=== PATIENT | male | born 1940 | race Caucasian/White ===

== ENCOUNTER 2020-05-15 05:51 | Emergency (ER) | payer OTHER, SELFPAY ==
[2020-05-15] VITALS (11 sets, daily range): BP systolic 146–153; BP diastolic 60–86; PULSE 59–71; RESP 16; TEMP 36.7; O2SAT 95–98
--- NOTE | 2020-05-15 06:00 | RT.EKG_ITS ---
APPROVED REPORT Exam: Resting ECG Patient Location: E HR:63 bpm ECG Measurements Heart Rate 63 AXIS NC 162 P 21 QRSd 86 QRS -11 QT 394 T 20 QTc 402 <Conclusion> Sinus rhythm...normal P axis, V-rate 60- 99 no acute ischemic findings Normal Electrocardiogram I have reviewed and I agree with the emergency room physician???s ECG interpretation.
--- NOTE | 2020-05-15 06:02 | W.ED.GENAD ---
Discharge Plan Disposition Patient Disposition: HOME Condition: Stable Discharge Details Chief Complaint: GenMedical Clinical Impression: Hypertension Primary Care Provider: Calixto Canales ED Provider: Terry Manzo Home Meds and New Rx's Prescriptions: Continued lisinopril 20 MG tablet 10 mg PO DAILY RF: 0 diltiazem HCl [Taztia XT] 360 MG capsule,extended release 24 hr 240 mg PO DAILY RF: 0 Eliquis 2.5 mg Tablet 2.5 mg PO DAILY RF: 0 No Action tamsulosin [Flomax] 0.4 mg Capsule 0.4 mg PO DAILY RF: 0 Discharge Instructions Additional Instructions: I suspect some of your symptoms could be from anxiety/stress. You do not need to check your blood pressure multiple times a day follow up with your primary care provider within 1-2 weeks if you develop fevers, feel more ill, have difficulty breathing or chest pain/pressure return to the emergency department Medical Decision Making 79 yo male with hx of afib, htn, who comes in with cc of feeling uneasy. He states throughout the night he was checking his BP as he is worried about having a stroke and one BP reading was 190 which made him very worried and felt flushed in the face so called ems. On arrival hd stable, denies any chest pain, pressure, dyspnea, fevers, vomit, weakness, numbness, vision changes. Arrives with NIH of 0, CN II-XII intact, 5/5 strength, speaking in full sentences and still feels uneasy as he is worried about his BP and having to care for his . He has clear lungs no leg swelling soft nontender abdomen. I suspect his symptoms were likely from anxiety related to his BP but will evaluate for possible cardiac ischema and monitor. HE has no findings on exam or history to suggest cva/tia and do not feel head imaging indicated pt remains Hd stable with stable exam, labs show mild elevation in creatinine which he states is chronic for him. Suspect his symptoms likely stress/anxiety induced. He is comfortable with d/c and will f/u with pcp and return precautions given Differential Diagnosis Differential Diagnosis: anxiety, electrolyte abnormality, htn, anemia Lab Data Lab results reviewed: Yes I reviewed the patient's lab results. ECG Data Attestation: I personally reviewed and interpreted this ECG (s) as follows: Prior ECG tracings: not available for review Interpretation: sinus rhythm, rate of 63, pr 162, no acute st t wave ischemic findings HPI General Mode of arrival: EMS. Date/Time Provider Initiated Documentation: 05/15/20 06:01. Limitations to Documentation: no limitations. Information obtained by: patient. History of Present Illness 79 year old M presents to the emergency department with the chief complaint of uneasy, Patient started experiencing this hour(s) (5) and it has been constant. No relieving factors improve symptom(s), No exacerbating factors reported . Patient did receive the following treatments prior to arrival, none Related Data Home Medications Medication Instructions Recorded Confirmed diltiazem HCl [Taztia XT] 240 mg PO DAILY 10/16/13 05/15/20 lisinopril 10 mg PO DAILY 10/16/13 05/15/20 Eliquis 2.5 mg PO DAILY 05/15/20 05/15/20 tamsulosin [Flomax] 0.4 mg PO DAILY 05/15/20 05/15/20 Allergies Allergy/AdvReac Type Severity Reaction Status Date / Time No Known Allergies Allergy Unverified 05/15/20 05:56 General Stated Complaint: GenMedical ROSINA: 3 Review of Systems All systems reviewed & are unremarkable except as noted in HPI and below Constitutional Constitutional: Denies chills and Denies fever(s) Cardiovascular Cardiovascular: Denies chest pain and Denies dyspnea Respiratory Respiratory: Denies cough and Denies dyspnea Gastrointestinal Gastrointestinal: Denies abdominal pain, Denies nausea and Denies vomiting Musculoskeletal Musculoskeletal: Denies joint swelling Psychiatric Psychiatric: Denies depression [facility] Medical History (Updated 05/15/20 @ 06:55 by Terry Manzo MD) Atrial fibrillation (Chronic) Surgical History (Updated 05/15/20 @ 06:05 by Kathy Pichardo) History of hernia repair (Chronic) Social History Smoking/Tobacco Use Status: Never Alcohol Intake: current Alcohol Intake frequency: holidays/special occasions only Drug use: Never Substance use type: does not use Do you feel safe at home: Yes Do you feel safe in your relationship?: Yes Exam Const General: no acute distress Orientation: alert HENMT Head: normal to inspection Ears: external ears normal General nose exam: external nose normal Mouth: moist mucous membranes Eyes General: appearance normal, both eyes and all related structures Neck Neck: normal visual inspection Resp Effort & Inspection: normal respiratory effort and able to speak in complete sentences Cardio Jugular venous pressure: no JVD Rate: regular rate GI Palpation: soft, not firm and no guarding Skin General skin exam: no rashes or lesions noted Neuro General: patient alert and patient oriented x3 Extrem General: normal to inspection Psych Mental Status: mental status grossly normal Course Vital Signs Vital signs: Vital Signs Temperature 36.7 C 05/15/20 05:52 Pulse 71 05/15/20 05:52 Respiratory Rate 16 05/15/20 05:52 Blood Pressure 150/86 H 05/15/20 05:52 Pulse Oximetry 98 05/15/20 05:52 Temperature 36.7 C 05/15/20 05:52 Temperature Source Oral 05/15/20 05:52 Pulse 71 05/15/20 05:52 Respiratory Rate 16 05/15/20 05:52 Blood Pressure 150/86 H 05/15/20 05:52 Blood Pressure Position Sitting 05/15/20 05:52 Pulse Oximetry 98 05/15/20 05:52 Oxygen Delivery Method Room Air 05/15/20 05:52 Oxygen Flow Rate 0 05/15/20 05:52 Pain Level 0 05/15/20 05:52
[2020-05-15 06:15] LABS: Absolute Basophil Count 0.03 k/cumm (0.0-0.2); Absolute Eosinophil Count 0.19 k/cumm (0.0-0.7); Absolute Lymphocyte Count 1.44 k/cumm (1.2-3.4); Absolute Monocyte Count 0.49 k/cumm (0.11-0.7); Absolute Neutrophil Count 5.93 k/cumm (1.2-6.7); Basophils % 0.4; Eosinophils % 2.3; HCT 41.9 % (40.0-50.0); Immature Grans % 1.2 %; Lymphocytes % 17.6; Mean Corp. HGB Concentration 33.4 g/dL (32.0-36.0); Mean Corpuscular Hemoglobin 30.8 pg (27.0-33.0); Mean Corpuscular Volume 92.3 fL (80-95); Mean Platelet Volume 10.7 fL (8.0-11.0); Neutrophils % 72.5; Platelet Count 207 x1000/uL (130-400); RBC 4.54 m/cumm (4.50-6.00); White Blood Cell Count 8.18 k/cumm (4.4-10.8)
[2020-05-15 06:29] LABS: INR 1.1 (0.9-1.1); Prothrombin Time 11.1 sec (9.3-11.0)
[2020-05-15 06:33] LABS: ALT 23 U/L (16-63); AST 23 U/L (15-37); Albumin 3.9 g/dL (3.4-5.0); Alkaline Phosphatase 85 U/L (46-116); Anion Gap 8.7 mmol/L (3-11); BUN 33 mg/dL (7-18); Bilirubin, Total 0.5 mg/dL (0.2-1.0); CO2 26.3 mmol/L (21.0-32.0); CREATININE 1.57 mg/dL (0.70-1.30); Calcium 9.4 mg/dL (8.5-10.1); Chloride 104 mmol/L (98-107); Estimated GFR 42.61 (mL/min/1.73m2); Glucose 120 mg/dL (74-106); Potassium 4.4 mmol/L (3.5-5.1); Sodium 139 mmol/L (136-145); Troponin I < 0.05 ng/mL (<0.06)
[2020-05-15 06:41] LABS: Bilirubin Negative (Negative); Blood Negative (Negative); Clarity Clear (Clear); Glucose Negative (Negative); Ketones Negative (Negative); Leukocyte Esterase Negative (Negative); Nitrite Negative (Negative); Urobilinogen 0.2 EU/dL (Up TO 0.2)
== END 2020-05-15 07:53 | disposition home or self-care (01) ==
PROVIDERS: Emergency Provider Emergency Medicine; PCP Neuromusculoskeletal Medicine & OMM
DX: F43.0 Acute stress reaction (principal); I10 Essential (primary) hypertension; I48.91 Unspecified atrial fibrillation; Z79.01 Long term (current) use of anticoagulants
CPT/HCPCS: 80053; 93005; 99283; 81003; 84484; 85025; 85610; 85730; 93010

== ENCOUNTER 2020-08-08 13:03 | Emergency (ER) | payer OTHER, SELFPAY ==
[2020-08-08 13:09] VITALS: BP 146/95; PULSE 62; RESP 16; TEMP 36.7; O2SAT 100
--- NOTE | 2020-08-08 13:22 | ED.GENADUL_ITS ---
Discharge Plan Disposition Patient Disposition: HOME Condition: Stable Discharge Details Clinical Impression: Abdominal pain, Epididymal cyst Primary Care Provider: Calixto Canales ED Provider: Johan Lay Home Meds and New Rx's Prescriptions: Continued lisinopril 20 MG tablet 10 mg PO DAILY RF: 0 diltiazem HCl [Taztia XT] 360 MG capsule,extended release 24 hr 240 mg PO DAILY RF: 0 tamsulosin [Flomax] 0.4 mg Capsule 0.4 mg PO DAILY RF: 0 Eliquis 2.5 mg Tablet 2.5 mg PO DAILY RF: 0 Discharge Instructions Instructions: Abdominal Pain (ED) Additional Instructions: At this time your laboratory values and CT imaging does not reveal any obvious emergent process. As we discussed I cannot stress the importance of being compliant with your medications. I am giving you the name and number of both our local surgeon and urologist for outpatient evaluation for your ongoing abdominal pain and the cysts in your scrotum. I do recommend contacting their offices tomorrow for prompt outpatient reevaluation. Please watch for new or worsening symptoms and return to the ER for any concerns. I also recommend contacting your primary care provider tomorrow for prompt outpatient reevaluation, discussion of your medications, and reassessment. Referrals: Ashlee Montano MD [ [facility] STAFF PHYSICIAN] - Yogesh Lynch MD [ [facility] STAFF PHYSICIAN] - Medical Decision Making 79-year-old gentleman with history of BPH, atrial fibrillation, noncompliant with medications, presents today reporting intermittent abdominal pain for several months, back now over the past 2 or 3 days. He is specifically concerned about appendicitis. Denies fever, trauma, bad food exposure, recent travel or sick exposure. Denies chest pain, shortness of breath, nausea, vomiting, hematuria, diarrhea. Clinically he appears well, nontoxic. He is afebrile, O2 sat 100% on room air, pulse in the 60s, blood pressure 146/95. Abdominal examination does reveal mild right lower quadrant discomfort to moderate palpation but certainly no guarding, rebound or rigidity. Differential includes but excluded to appendicitis, colitis, atypical diverticulitis, mesenteric ischemia, UTI, renal stone, pyelonephritis, etc. Will obtain CBC, CMP, lipase, urinalysis, lactate and give 1 L IV fluid. Will obtain CT imaging of his abdomen pelvis with contrast. I did have a lengthy conversation with patient regarding compliance with his medications. Explained to him the importance of taking his Eliquis as directed. He is hesitant but states that he will be compliant. He does not want to talk with his primary care provider about other options as this medication is pricey. I did explain to him that we could initiate medication changes today but he would prefer to go through his primary care provider. He does understand the risks associated with not being compliant, such as increased risk of stroke Initial work-up here in the ER reveals a white blood cell count of 11.12 hemoglobin 13.9 hematocrit 41.9 platelet count 197. Lactate 1.6, electrolytes unremarkable, creatinine 1.55 with a GFR of 43.25, glucose 139, LFTs unremarkable. Urinalysis unremarkable. Awaiting CT CT resulted as a cystic area in the right lower inguinal canal which could represent an epididymal cyst or spermatocele. No evidence of appendicitis or other acute abnormality. Given he is having lower abdominal pain, I do believe obtaining ultrasound of his scrotum is perfectly reasonable. Patient reports that he knew he had something on my testicle, but does not know how long its been there for and does not believe he is ever had an ultrasound. On his examination, external genital exam appears normal. No discharge from the meatus, no lesions. Testicles are nontender. He does appear to have a fullness that could be consistent with a hydrocele or spermatocele on the left upper testicle. Difficult to truly assess for a cyst or nodule on the right testicle. 1531 repeat lactate 1.1. Patient is currently at ultrasound. Ultrasound reveals a bilateral epididymal head cysts, no torsion. Discussed findings with patient. We discussed entire work-up and disposition. Will give referral to urology for his epididymal cyst. Will give referral to general surgery for potential colonoscopy for his ongoing abdominal pain. We discussed the importance of being compliant with his medications and if he is unsure of h ow he would like to take them then I could not stress the importance of contacting his primary care provider later today or tomorrow for prompt outpatient reevaluation and discussion of these medications. Patient has no additional questions or concerns and is comfortable discharge at this time. He was encouraged to return to the ER for new or worsening symptoms. Medical Records Medical records reviewed: Yes I reviewed the patient's medical records. Lab Data Lab results reviewed: Yes I reviewed the patient's lab results. Lab results narrative: Laboratory Tests Range/Units 10/20/20 10/20/20 10/20/20 13:20 13:20 13:20 WBC (4.4-10.8) 10^3/uL 11.12 H RBC (4.36-5.78) 10^6/uL 4.47 Hgb (13.5-17.5) g/dL 13.9 Hct (40.0-50.0) % 41.9 MCV (80-95) fL 93.7 MCH (27.0-33.0) pg 31.1 MCHC (32.0-36.0) % 33.2 RDW (11.8-14.1) % 12.5 Plt Count (130-400) 10^3/uL 197 MPV (8.0-11.0) fL 10.8 Immature Gran % 1.3 Neutrophils % 74.0 Lymphocytes % 16.5 Monocytes % 5.8 Eosinophils % 1.8 Basophils % 0.6 Nucleated RBC % % 0 Absolute Neutrophils (1.2-6.7) 10^3/uL 8.23 H Absolute Lymphocytes (1.2-3.4) 10^3/uL 1.83 Absolute Monocytes (0.1-0.8) 10^3/uL 0.64 Absolute Eosinophils (0.0-0.7) 10^3/uL 0.20 Absolute Basophils (0.0-0.2) 10^3/uL 0.07 VBG Lactate (0.6-1.4) mmol/L 1.6 H Sodium (136-145) mmol/L 138 Potassium (3.5-5.1) mmol/L 4.6 Chloride (98-107) mmol/L 105 Carbon Dioxide (21.0-32.0) mmol/L 25.6 Anion Gap (3-11) mmol/L 7.4 BUN (7-18) mg/dL 35 H Creatinine (0.70-1.30) mg/dL 1.55 H Estimated GFR/1.73 m2 (mL/min/1.73m2) 43.25 Glucose (74-106) mg/dL 139 H Calcium (8.5-10.1) mg/dL 9.0 Total Bilirubin (0.2-1.0) mg/dL 0.4 AST (15-37) U/L 15 ALT (16-63) U/L 22 Alkaline Phosphatase (46-116) U/L 88 Total Protein (6.4-8.2) g/dL 6.9 Albumin (3.4-5.0) g/dL 3.6 Lipase (73-393) U/L 146 Urine Color (Yellow) Urine Clarity (Clear) Urine pH (5-8) Ur Specific [place] (1.005-1.025) Urine Protein (Negative) mg/dL Urine Ketones (Negative) mg/dL Urine Blood (Negative) Urine Nitrite (Negative) Urine Bilirubin (Negative) Urine Urobilinogen (Up TO 0.2) EU/dL Ur Leukocyte Esterase (Negative) Urine Glucose (Negative) mg/dL Range/Units 08/08/20 08/08/20 13:20 15:20 WBC (4.4-10.8) 10^3/uL RBC (4.36-5.78) 10^6/uL Hgb (13.5-17.5) g/dL Hct (40.0-50.0) % MCV (80-95) fL MCH (27.0-33.0) pg MCHC (32.0-36.0) % RDW (11.8-14.1) % Plt Count (130-400) 10^3/uL MPV (8.0-11.0) fL Immature Gran % Neutrophils % Lymphocytes % Monocytes % Eosinophils % Basophils % Nucleated RBC % % Absolute Neutrophils (1.2-6.7) 10^3/uL Absolute Lymphocytes (1.2-3.4) 10^3/uL Absolute Monocytes (0.1-0.8) 10^3/uL Absolute Eosinophils (0.0-0.7) 10^3/uL Absolute Basophils (0.0-0.2) 10^3/uL VBG Lactate (0.6-1.4) mmol/L 1.1 Sodium (136-145) mmol/L Potassium (3.5-5.1) mmol/L Chloride (98-107) mmol/L Carbon Dioxide (21.0-32.0) mmol/L Anion Gap (3-11) mmol/L BUN (7-18) mg/dL Creatinine (0.70-1.30) mg/dL Estimated GFR/1.73 m2 (mL/min/1.73m2) Glucose (74-106) mg/dL Calcium (8.5-10.1) mg/dL Total Bilirubin (0.2-1.0) mg/dL AST (15-37) U/L ALT (16-63) U/L Alkaline Phosphatase (46-116) U/L Total Protein (6.4-8.2) g/dL Albumin (3.4-5.0) g/dL Lipase (73-393) U/L Urine Color (Yellow) Yellow Urine Clarity (Clear) Clear Urine pH (5-8) 6.0 Ur Specific [place] (1.005-1.025) 1.015 Urine Protein (Negative) mg/dL Negative Urine Ketones (Negative) mg/dL Negative Urine Blood (Negative) Negative Urine Nitrite (Negative) Negative Urine Bilirubin (Negative) Negative Urine Urobilinogen (Up TO 0.2) EU/dL 0.2 Ur Leukocyte Esterase (Negative) Negative Urine Glucose (Negative) mg/dL Negative HPI General Mode of arrival: ambulatory . Date/Time Provider Initiated Documentation: 08/08/20 13:12 . Limitations to Documentation: no limitations . Information obtained by: patient . HPI Narrative: This is an 79-year-old gentleman with past medical history that includes BPH and intermittent atrial fibrillation. He reports his last episode was probably 3 weeks ago or so. He is presenting today reporting intermittent right lower quadrant pain since May. He states that a couple weeks ago he felt as though his pain was made worse after drinking coffee, stopped drinking coffee and the pain went away. He tried drinking coffee just a couple days ago and the pain returned. Right now the pain is mild in nature, there is nothing that makes it worse or better currently. He has not drink coffee again. He states that back in May he was told that this may be his appendix. He denies fever, chest pain, shortness of breath, nausea, vomiting, diarrhea, dysuria or hematuria. Denies any pain in his groin, scrotum, testicles, or penile discharge. He reports chronic mild low back pain that is unchanged. He reports that he does urinate more than usual, this is been going on for a week or 2. Of note he stopped taking his Eliquis a few weeks ago because a friend told him that it could make him cold during the wintertime, he is also concerned about the ahmadi. He is aware that there are less expensive medications but it would be an inconvenience to have his laboratory values checked on a regular basis. He also has stopped taking his Flomax because he states that one time while walking upstairs he became slightly lightheaded. He has not made his provider aware that he has discontinued his Eliquis or Flomax. He does admit to intermittent constipation, had a small bowel movement today Related Data Home Medications Medication Instructions Recorded Confirmed diltiazem HCl [Taztia XT] 240 mg PO DAILY 10/16/13 08/08/20 lisinopril 10 mg PO DAILY 10/16/13 08/08/20 Eliquis 2.5 mg PO DAILY 05/15/20 08/08/20 tamsulosin [Flomax] 0.4 mg PO DAILY 05/15/20 08/08/20 Allergies Allergy/AdvReac Type Severity Reaction Status Date / Time No Known Allergies Allergy Unverified 08/08/20 13:12 General Stated Complaint: Abd Prob ROSINA: 3 Review of Systems Constitutional Constitutional: Denies fatigue, Denies fever(s) and Denies headache(s) ENT Ears, Nose, Mouth, and Throat: Denies headache(s) and Denies neck pain Cardiovascular Cardiovascular: Denies chest pain and Denies dyspnea Respiratory Respiratory: Denies cough and Denies dyspnea Gastrointestinal Gastrointestinal: Reports abdominal pain, Denies melena and Denies hematochezia Genitourinary Genitourinary: Denies hematuria, Denies dysuria and Reports urinary frequency Musculoskeletal Musculoskeletal: Reports back pain (Chronic) and Denies neck pain Integumentary/Breasts Skin/Breast: Denies rash Neurologic Neurologic: Denies headache(s) Endocrine Endocrine: Denies fatigue Hematologic/Lymphatic Hematologic/Lymphatic: Denies easy bleeding and Denies easy bruising [facility] Medical History Atrial fibrillation Surgical History History of hernia repair Social History Smoking/Tobacco Use Status: Never Alcohol Intake: current Alcohol Intake frequency: holidays/special occasions only Drug use: Never Substance use type: does not use Do you feel safe at home: Yes Do you feel safe in your relationship?: Yes Exam Const General: cooperative, healthy appearing, comfortable and no acute distress Orientation: alert, awake and oriented x3 HENMT Head: normal to inspection, normocephalic and atraumatic Face and sinus: normal facial exam Mouth: moist mucous membranes Throat: posterior oropharynx normal Eyes Conjunctivae: conjunctivae normal Sclera: sclerae normal Neck Neck: normal visual inspection, full ROM, trachea midline and supple Resp Effort & Inspection: normal respiratory effort and able to speak in complete sentences Auscultation: clear to auscultation bilaterally Cardio Rate: regular rate Rhythm: regular rhythm GI Inspection: normal to inspection Palpation: soft, not firm, no guarding, not rigid and tender in the RLQ; not at McBurney's point and with no rebound tenderness Auscultation: normal bowel sounds Back/Spine/Pelvis Back: No back tenderness Skin General skin exam: no rashes or lesions noted Neuro General: patient alert, patient awake, moves all extremities and no focal motor deficits Cognition: normal cognition Speech: speech normal Gait: normal gait Motor: muscle tone normal throughout Sensory Exam: no sensory deficits noted Extrem General: normal to inspection, full ROM, capillary refill normal, no pedal edema and no calf tenderness Psych Appearance: grossly normal Mental Status: mental status grossly normal Course Vital Signs Vital signs: Vital Signs Temperature 36.7 C 08/08/20 13:09 Pulse 62 08/08/20 13:09 Respiratory Rate 16 08/08/20 13:09 Blood Pressure 146/95 H 08/08/20 13:09 Pulse Oximetry 100 08/08/20 13:09 Temperature 36.7 C 08/08/20 13:09 Temperature Source Skin 08/08/20 13:09 Pulse 62 08/08/20 13:09 Respiratory Rate 16 08/08/20 13:09 Respiratory Effort Non-Labored 08/08/20 13:14 Blood Pressure 146/95 H 08/08/20 13:09 Blood Pressure Position Supine 08/08/20 13:09 Pulse Oximetry 100 08/08/20 13:09 Oxygen Delivery Method Room Air 08/08/20 13:09 Oxygen Flow Rate 0 08/08/20 13:09 Pain Level 5 08/08/20 13:09
[2020-08-08 13:26] LABS: Lactate 1.6 mmol/L (0.6-1.4)
[2020-08-08 13:27] LABS: Abs Immature Grans 0.15 10^3/uL (0.0-0.06); Absolute Basophil Count 0.07 10^3/uL (0.0-0.2); Absolute Lymphocyte Count 1.83 10^3/uL (1.2-3.4); Absolute Monocyte Count 0.64 10^3/uL (0.1-0.8); Absolute Neutrophil Count 8.23 10^3/uL (1.2-6.7); Basophils % 0.6; Eosinophils % 1.8; HCT 41.9 % (40.0-50.0); HGB 13.9 g/dL (13.5-17.5); Immature Grans % 1.3; Lymphocytes % 16.5; MCH 31.1 pg (27.0-33.0); MCHC 33.2 % (32.0-36.0); MCV 93.7 fL (80-95); MPV 10.8 fL (8.0-11.0); Monocytes % 5.8; Nucleated RBC 0 %; Platelet Count 197 10^3/uL (130-400); RBC 4.47 10^6/uL (4.36-5.78); RDW 12.5 % (11.8-14.1); RDW-SD 43.5 fL; WBC 11.12 10^3/uL (4.4-10.8)
[2020-08-08 13:28] LABS: Bilirubin Negative (Negative); Blood Negative (Negative); Clarity Clear (Clear); Glucose Negative (Negative); Ketones Negative (Negative); Leukocyte Esterase Negative (Negative); Nitrite Negative (Negative); Specific Gravity 1.015 (1.005-1.025); Urobilinogen 0.2 EU/dL (Up TO 0.2)
[2020-08-08] MEDS: Normal Saline 1,000 ML 1000 ML IV (13:40)
[2020-08-08 14:04] LABS: ALT 22 U/L (16-63); AST 15 U/L (15-37); Alkaline Phosphatase 88 U/L (46-116); Anion Gap 7.4 mmol/L (3-11); BUN 35 mg/dL (7-18); Bilirubin, Total 0.4 mg/dL (0.2-1.0); CO2 25.6 mmol/L (21.0-32.0); CREATININE 1.55 mg/dL (0.70-1.30); Chloride 105 mmol/L (98-107); Estimated GFR 43.25 (mL/min/1.73m2); Glucose 139 mg/dL (74-106); Potassium 4.6 mmol/L (3.5-5.1); Sodium 138 mmol/L (136-145); Total Protein 6.9 g/dL (6.4-8.2)
[2020-08-08 14:15] LABS: Albumin 3.6 g/dL (3.4-5.0); Lipase 146 U/L (73-393)
[2020-08-08] MEDS: Normal Saline - Diluent 50 ML VIAL IV (14:25)
[2020-08-08] MEDS: Omnipaque 350 MG/ML 100 ML BTL IJ (14:25)
--- NOTE | 2020-08-08 14:29 | DI.CT_ITS ---
EXAM: CT ABDOMEN PELVIS W CLINICAL HISTORY: RLQ pain. TECHNIQUE: Imaging Protocol: Axial computed tomography images with coronal and sagittal reformatted images were created and reviewed CONTRAST MATERIAL: Intravenous: Omnipaque 350 Contrast volume:100 cc Oral: no COMPARISON: No exams were available for comparison FINDINGS: ABDOMEN: Lung Bases: Normal where visualized. Liver: Normal density. No measurable mass. Gallbladder and biliary tract: No radiodense calculus or dilation. Pancreas: Mildly atrophic. Normal density, no abnormal calcifications or inflammatory process. Spleen: Normal. Kidneys: Normal size, contour and axis. No obstructive uropathy. No masses seen. Several small bila teral renal cysts. Adrenal glands: No masses seen. Abdominal Aorta: Abdominal portion non-dilated. Atherosclerotic changes. PELVIS: Bladder: Symmetric distention, no gross wall thickening. Bowel: No obstruction or bowel wall thickening. Normal appendix. Moderate quantity of stool. No sig nificant diverticulosis. Peritoneal cavity: No ascites, collection or mesenteric inflammatory response. Bones: Degenerative disc changes in the lower thoracic and lumbar spine. Mild levoscoliosis. Degene rative changes of the hips. Reproductive organs: 3 0.1 x 4.8 centimeter cystic area in the right inguinal canal could represent a n epididymal cyst or spermatocele. Lymph nodes: Unremarkable. Impression: Cystic area in the lower right inguinal canal could represent an epididymal cyst or spermatocele. No evidence of appendicitis or other acute abnormality. RADIATION DOSE DELIVERED: 833.19mGy.cm Total DLP DATA REPOSITORY: All CT scans at this facility are submitted to the National Radiology Data Registry (NRDR) Dose Index Registry (DIR) with the [employer] ([employer]). RADIATION OPTIMIZATION: All CT scans at this facility use at least one of these dose optimization te chniques: automated exposure control; mA and/or kV adjustment per patient size (includes targeted exa ms where dose is matched to clinical indication); or iterative reconstruction.
--- NOTE | 2020-08-08 15:00 | DI.US_ITS ---
EXAM: US SCROTUM CLINICAL HISTORY: RLQ pain, epididymal cyst on CT. TECHNIQUE: Scrotal ultrasound performed using grayscale, color-flow and spectral Doppler analysis. COMPARISON: No exams were available for comparison FINDINGS: Right testicle: 4.5 cm Left testicle: 5.0 cm Echogenicity: Normal. Contour: Smooth. Mass: None seen. Microlithiasis: None. Hydrocele: None. Variocele: None. Hernia: No peristalsing bowel loop identified. Epididymis: Normal. There are bilateral epididymal head cysts. The a cyst on the right measures 5.0 x 3.2 x 4.7 cm. The cyst on the left measures 6.8 x 4 x 5.2 cm. DOPPLER: Color: Symmetric and uniform, no hyperemia. Duplex: Bilateral testicular arterial waveforms visualized. IMPRESSION: Normal appearing bilateral testicles. Bilateral epididymal head cysts. DATA REPOSITORY:
[2020-08-08 15:26] LABS: Lactate 1.1 mmol/L (0.6-1.4)
[2020-08-08 16:05] VITALS: BP 149/59; PULSE 54; RESP 18; O2SAT 95
== END 2020-08-08 16:00 | disposition home or self-care (01) ==
PROVIDERS: Emergency Provider Physician Assistant; PCP Neuromusculoskeletal Medicine & OMM
DX: N50.3 Cyst of epididymis (principal); R10.31 Right lower quadrant pain; T44.6X6A Underdosing of alpha-adrenoreceptor antagonists, initial encounter; Z91.120 Patient's intentional underdosing of medication regimen due to financial hardship; T45.516A Underdosing of anticoagulants, initial encounter
CPT/HCPCS: 36415; 80053; 83690; 96360; 99285; 74177; 76870; 81003; 83605; 85025; J3490

== ENCOUNTER → 2020-08-10 13:47 | Outpatient (BNVA) | payer OTHER, SELFPAY | PROVIDERS: PCP Neuromusculoskeletal Medicine & OMM; Referring Provider Neuromusculoskeletal Medicine & OMM; Visit Provider Physical Therapy Assistant | DX: R10.31 Right lower quadrant pain (principal); N50.3 Cyst of epididymis; I10 Essential (primary) hypertension | CPT/HCPCS: 99213 ==

== ENCOUNTER 2020-09-18 04:19 | Emergency (ER) | payer OTHER, SELFPAY ==
[2020-09-18 04:23] VITALS: BP 156/61; PULSE 61; RESP 16; TEMP 36.5; O2SAT 96
--- NOTE | 2020-09-18 04:35 | W.ED.GENAD ---
Discharge Plan Disposition Patient Disposition: HOME Condition: Good Discharge Details Clinical Impression: Constipation Primary Care Provider: Calixto Canales ED Provider: Calixto Silva Home Meds and New Rx's Prescriptions: Continued diltiazem HCl [Taztia XT] 360 MG capsule,extended release 24 hr 240 mg PO DAILY RF: 0 lisinopril 20 mg tablet 20 mg PO DAILY RF: 0 sertraline 50 mg Tablet 50 mg PO DAILY RF: 0 lorazepam 0.5 mg tablet 0.5 mg PO TID PRNRF: 0 Eliquis 2.5 mg Tablet 2.5 mg PO DAILY RF: 0 Discharge Instructions Instructions: Constipation (ED) Additional Instructions: It is important to stay hydrated and increase fiber in your diet to help prevent constipation. It is okay to take MiraLAX once a day as long as you do not have diarrhea. He should follow-up with primary care for further management. Return to ED for fever, vomiting, new or worsening abdominal pain. Referrals: Calixto Canales [Primary Care Provider] - Medical Decision Making Given patient's 2 recent visit to other hospitals with a CT scan and laboratory work-up yesterday, I am not inclined to do a repeat work-up here. He reports that [facility] told him his CT scan was essentially unremarkable except for cyst. He was not able to elaborate on this. However, he had a CT scan here in July which revealed cystic structure in the right inguinal canal consistent with spermatocele or similar. Patient's abdomen is completely benign. His rectal exam does not reveal fecal impaction. We will try SSE here to see if we can provide him some relief. Patient had bowel movement with soapsuds enema. Subsequently received milk and molasses enema. This point feeling better with bowel movement. Discharge home to continue MiraLAX to keep stools soft. Follow-up with primary care. Return to ED if fever, vomiting, new or worsening pain. HPI General Mode of arrival: ambulatory. Date/Time Provider Initiated Documentation: 09/18/20 04:35. Limitations to Documentation: no limitations. Information obtained by: patient. HPI Narrative: Patient presents to ED with complaint of lower abdominal discomfort and constipation. Patient reports being seen at [facility] Friday morning. He was seen at [facility] Friday morning. At [facility] he had laboratory studies and CT scan. He has been given lactulose as well as MiraLAX. He continues to be unable to have a bowel movement. He has had constipation in the past but typically is eventually able to go. He reports no significant bowel movement for about a week now. He denies any nausea/vomiting. He does have an appetite although eating makes his discomfort worse. He has had no fever. Related Data Home Medications Medication Instructions Recorded Confirmed diltiazem HCl [Taztia XT] 240 mg PO DAILY 10/16/13 09/18/20 Eliquis 2.5 mg PO DAILY 05/15/20 09/18/20 lisinopril 20 mg tablet 20 mg PO DAILY tab 08/10/20 09/18/20 lorazepam 0.5 mg PO TID PRN 09/18/20 09/18/20 sertraline 50 mg PO DAILY 09/18/20 09/18/20 Allergies Allergy/AdvReac Type Severity Reaction Status Date / Time fexofenadine [From Jeanette] Allergy Unknown Unverified 09/18/20 04:29 General Stated Complaint: Abd Prob ROSINA: 3 Review of Systems Narrative: As documented in HPI otherwise negative as below. Const: no fever, chills, weakness Resp: no cough, SOB, pleuritic pain CV: no CP, diaphoresis, edema, syncope GI: no nausea, vomiting, diarrhea Neuro: no headache, numbness, focal weakness, confusion [facility] Medical History Atrial fibrillation Surgical History History of hernia repair Social History Smoking/Tobacco Use Status: Never Smoking risk assessment performed?: Yes Alcohol Intake: current Alcohol Intake frequency: holidays/special occasions only Drug use: Never Substance use type: does not use Do you feel safe at home: Yes Do you feel safe in your relationship?: Yes Exam Narrative Exam Narrative: Const: WDWN elderly male in NAD. HEENT: NC/AT. Normal facial exam. Eyes: Normal conjunctiva and sclera. Neck: Supple. Trachea midline. Lungs: Normal respiratory effort. GI: Soft. NT/ND. No guarding or rebound. Rectal with no stool in rectal vault. Enlarged smooth prostate. Neuro: A+O x 3. Normal speech, mentation, gait. Cranial nerves II - XII grossly intact. No gross motor or sensory deficit. Course Vital Signs Vital signs: Vital Signs Temperature 97.7 F 09/18/20 04:23 Pulse 61 09/18/20 04:23 Respiratory Rate 16 09/18/20 04:23 Blood Pressure 156/61 H 09/18/20 04:23 Pulse Oximetry 96 09/18/20 04:23 Temperature 97.7 F 09/18/20 04:23 Temperature Source Skin 09/18/20 04:23 Pulse 61 09/18/20 04:23 Respiratory Rate 16 09/18/20 04:23 Respiratory Effort Non-Labored 09/18/20 04:28 Blood Pressure 156/61 H 09/18/20 04:23 Blood Pressure Position Sitting 09/18/20 04:23 Pulse Oximetry 96 09/18/20 04:23 Oxygen Delivery Method Room Air 09/18/20 04:23 Oxygen Flow Rate 0 09/18/20 04:23 Pain Level 8 09/18/20 04:23
[2020-09-18 06:20] VITALS: BP 142/68; PULSE 53; RESP 16; O2SAT 97
== END 2020-09-18 06:30 | disposition home or self-care (01) ==
PROVIDERS: Emergency Provider Emergency Medicine; PCP Neuromusculoskeletal Medicine & OMM
DX: K59.09 Other constipation (principal); R10.30 Lower abdominal pain, unspecified
CPT/HCPCS: 99282; 99283

== ENCOUNTER → 2020-10-03 08:13 | Outpatient (BNVA) | payer OTHER, SELFPAY | PROVIDERS: PCP Neuromusculoskeletal Medicine & OMM; Referring Provider Neuromusculoskeletal Medicine & OMM; Visit Provider Surgery | DX: R14.0 Abdominal distension (gaseous) (principal); K59.00 Constipation, unspecified | CPT/HCPCS: 99203; 99214 ==

== ENCOUNTER → 2020-10-11 10:12 | Outpatient (BNVA) | payer OTHER, SELFPAY | PROVIDERS: PCP Neuromusculoskeletal Medicine & OMM; Referring Provider Neuromusculoskeletal Medicine & OMM; Visit Provider Nurse Practitioner Gerontology | DX: N43.42 Spermatocele of epididymis, multiple (principal); N28.1 Cyst of kidney, acquired | CPT/HCPCS: 99204; 99215 ==

== ENCOUNTER → 2020-12-07 15:25 | Outpatient (BNVA) | payer MEDICARE, SELFPAY | PROVIDERS: PCP Neuromusculoskeletal Medicine & OMM; Referring Provider Neuromusculoskeletal Medicine & OMM; Visit Provider Nurse Practitioner Gerontology | DX: R82.90 Unspecified abnormal findings in urine (principal) | CPT/HCPCS: 99214 ==

== ENCOUNTER 2021-09-04 08:47 | Outpatient (CLI) | payer MEDICARE, SELFPAY ==
--- NOTE | 2021-09-04 | DI.CT_ITS ---
Exam(s) CT ABDOMEN WO/W EXAM: CT ABDOMEN WO/W CLINICAL HISTORY: F/U ABNL CT, ADRENAL AND PANCREAS CYST,K86.2,. TECHNIQUE: Imaging Protocol: Axial computed tomography images with coronal and sagittal reformatted images were created and reviewed CONTRAST MATERIAL: Intravenous: Omnipaque 350 Contrast volume:100 ml Oral: yes / COMPARISON: CT CT ABDOMEN PELVIS W from 08/08/2020 FINDINGS: ABDOMEN: Lung Bases: Dependent changes.. Liver: Normal density. No measurable mass. Gallbladder and biliary tract: No radiodense calculus or dilation. Pancreas: Normal density, no abnormal calcifications or inflammatory process.Stable 10 millimeter cys t. Spleen: Normal. Kidneys: Normal size, contour and axis. No radiodense stones or obstructive uropathy. No masses seen. Stable bilateral cysts. Duplex collecting systems both kidneys. Adrenal glands: Left: 12 millimeter circumscribed low-density nodule, consistent with an incidental a denoma. Right, normal. Abdominal Aorta: Abdominal portion non-dilated. Atherosclerotic changes and mural calcification. Bowel: Unremarkable. Moderate quantity of stool. Bones: Multilevel degenerative disc changes and Schmorl's nodes. Soft tissues: Impression: 1. 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 2. Stable low-density left adrenal nodule consistent with an adenoma. RADIATION DOSE DELIVERED: 1,485.26mGy.cm Total DLP DATA REPOSITORY: All CT scans at this facility are submitted to the National Radiology Data Registry (NRDR) Dose Index Registry (DIR) with the [employer] (A[employer]). RADIATION OPTIMIZATION: All CT scans at this facility use at least one of these dose optimization te chniques: automated exposure control; mA and/or kV adjustment per patient size (includes targeted exa ms where dose is matched to clinical indication); or iterative reconstruction.
[2021-09-04] MEDS: Omnipaque 350 MG/ML 50 ML BTL PO (08:57)
[2021-09-04] MEDS: Normal Saline - Diluent 50 ML VIAL IV (08:58)
[2021-09-04] MEDS: Omnipaque 350 MG/ML 100 ML BTL IJ (08:58)
[2021-09-04] MEDS: Breeza Beverage 473 ML BTL PO (08:58)
== END 2021-09-04 09:07 ==
PROVIDERS: PCP Neuromusculoskeletal Medicine & OMM; Visit Provider Neuromusculoskeletal Medicine & OMM
DX: K86.2 Cyst of pancreas (principal); D35.00 Benign neoplasm of unspecified adrenal gland
CPT/HCPCS: 74170; J3490; Q9967

== ENCOUNTER 2021-10-03 00:07 | Outpatient (CLI) | payer MEDICARE, SELFPAY ==
--- NOTE | 2021-10-03 06:30 | DI.US_ITS ---
Exam(s) US RENAL EXAM: US RENAL CLINICAL HISTORY: monitoring renal cyst,n28.1 TECHNIQUE: Ultrasound of both kidneys performed using standard protocol. COMPARISON: CT CT ABDOMEN WO/W from 09/04/2021 FINDINGS: RIGHT KIDNEY: Measures 10 cm in length. There is 1.8 x 1.2 x 2 cm exophytic cyst off the lateral cortex, correspond to what is seen on recent CT scan. No solid masses. Normal cortical thickness and corticomedullary differentiation .No solid masses No intrarenal calculi nor hydronephrosis. LEFT KIDNEY: Measures 11 cm in length. Two exophytic cysts, 1 at the midpole level measuring 1.1 x 1.2 cm and the other at the inferior pole level measuring 1 point 0 x 0.7 cm. Normal cortical thickness and cortic omedullary differentiaion. No solids masses. Superiorly there is a 4 millimeter echogenic focus. I suspect this is an arcuate artery loop, as there were no radiopaque calculi recent CT scan. URINARY BLADDER: Prevoid volume is 180 cc Postvoid volume is 0 cc No evidence of bladder mass nor diverticuli. Prostate gland volume is 285 cc. The prostate gland measures 3.6 x 4.3 x 3.4 cm. Does not indent th e bladder base. Ureterovesical jets: Left jet was seen. Right was not observed IMPRESSION: 1. No solid renal masses. There are 2 exophytic cysts in the left kidney and a single exophytic cys t in the right kidney, the largest being in the right kidney and measuring 2 cm. 2. Echogenic focus in the left kidney seen but this doubtful for calculus as there were no calculi o n the recent CT scan of 09/04/2021. There is no hydronephrosis 3. Bladder as above. No residual volume post micturition. No obvious bladder mass is evident on th soheila ultrasound images. DATA REPOSITORY:
== END 2021-10-03 00:27 ==
PROVIDERS: PCP Neuromusculoskeletal Medicine & OMM; Visit Provider Nurse Practitioner Gerontology
DX: N28.1 Cyst of kidney, acquired (principal); N28.89 Other specified disorders of kidney and ureter
CPT/HCPCS: 76770

== ENCOUNTER → 2021-10-09 14:34 | Outpatient (BNVA) | payer MEDICARE, SELFPAY | PROVIDERS: PCP Neuromusculoskeletal Medicine & OMM; Referring Provider Neuromusculoskeletal Medicine & OMM; Visit Provider Nurse Practitioner Gerontology | DX: N28.1 Cyst of kidney, acquired (principal); K86.2 Cyst of pancreas | CPT/HCPCS: 99214 ==

== ENCOUNTER 2021-12-14 02:08 | Outpatient (CLI) | payer MEDICARE, SELFPAY ==
--- NOTE | 2021-12-14 | DI.RAD_ITS ---
Exam(s) RF BARIUM SWALLOW EXAM: RF BARIUM SWALLOW CLINICAL HISTORY: DYSPHAGIA R13.10,? web,stricture or mass TECHNIQUE: 2D and realtime digital imaging was performed. Study was performed with air contrast tech nique, both upright and recumbent CONTRAST MATERIAL: Oral barium contrast was administered. COMPARISON: CT CT ABDOMEN WO/W from 09/04/2021 FINDINGS: ESOPHAGRAM: Swallowing mechanism appears grossly intact and there was no aspiration. No evidence of Zenker's div erticulum. No obvious hypertense upper esophageal sphincter-cricopharyngeus. There were some tertia ry waves demonstrated throughout the mid-lower esophagus but without an obvious fixed lesion. There was a Schatzki ring demonstrated just above the GE junction. No hiatal hernia evident. No diverticu li in the esophagus. No prominent reflux. No evidence of achalasia. IMPRESSION: Normal caliber esophagus. Mild temporary tertiary waves demonstrated. Schatzki ring demonstrated in the lower esophagus. No obvious fixed lesion or stricture demonstrated and no evidence of hiatal he rnia nor prominent reflux. If clinically indicated further study with modified barium swallow and/or endoscopy can be considered RADIATION DOSE DELIVERED: vance Mina=65.8 mGy
[2021-12-14] MEDS: Barium Sulfate 60% W/V 355 ML BTL PO (09:39)
[2021-12-14] MEDS: Simethicone/Sod Bicarb/Cit Ac, 4 gram PACKET 1 PACKET PO (09:40)
== END 2021-12-14 02:28 ==
PROVIDERS: PCP Neuromusculoskeletal Medicine & OMM; Visit Provider Neuromusculoskeletal Medicine & OMM
DX: R13.19 Other dysphagia (principal); K22.2 Esophageal obstruction
CPT/HCPCS: 74221; J3490

== ENCOUNTER 2022-01-15 16:49 | Inpatient (IN) | payer MEDICARE, SELFPAY ==
[2022-01-15] VITALS (47 sets, daily range): BP systolic 125–160; BP diastolic 59–103; PULSE 56–74; RESP 11–32; TEMP 36.5–36.8; O2SAT 92–98
--- NOTE | 2022-01-15 16:45 | RT.EKG_ITS ---
APPROVED REPORT Exam: Resting ECG Reason for Exam: pain between shoulder blades Patient Location: E HR:62 bpm ECG Measurements Heart Rate 62 AXIS WY 159 P 32 QRSd 94 QRS -6 QT 406 T 121 QTc 412 Conclusion Sinus rhythm...normal P axis, V-rate 60- 99 Repol abnrm suggests ischemia, diffuse leads...ST-T neg, ant/lat/inf. Sinus. 1mm ST depression in I and aVL. Less than 1mm ST depression in V3-6. Less than 1mm ST elevatio n in III and aVR. No STEMI. I have reviewed and interpreted ECG and agree with software generated interpretation.
--- OUTSIDE RECORDS SUMMARY | 2022-01-15 17:04 | XMS_ITS | CCD ---
:1940 Author Care Team Providers Name Role Phone SUSANNAH WRIGHT MD Attending Physician Unavailable Anuj WRIGHT MD Er Physician 1 Unavailable Vital Signs Unknown or Not Available. Allergies Unknown or Not Available. Procedures Unknown or Not Available. History of Immunizations Unknown or Not Available. Problems Unknown or Not Available. Results Unknown or Not Available. Active Medications Unknown or Not Available. Medications Administered During Visit Unknown or Not Available. Encounters Encounter Diagnosis Diagnosis Code Start Date Other specified arthritis, right ankle and foot [id number] 06/22/2021 Social History Smoking Status Code Start Date End Date Never smoker [id number] Patient Decision Aids Unknown or Not Available. Discharge Instructions You were admitted to [facility] on 06/22/2021 13:15 with a principal diagnosis of Other specified arthritis, right ankle and foot You were discharged from [facility] on 06/22/2021 15:47 Should you have any questions prior to d ischarge, please contact a member of your healthcare team. If you have left the spital and have any questions, please contact your primary care physician. Chief Complaint and Reason For Visit Chief Complaint Date of Onset RIGHT FOOT PAIN Function Status Unknown or Not Available. Plan of Care Unknown or Not Available. Referral/Transition of Care Unknown or Not Available.
--- OUTSIDE RECORDS SUMMARY | 2022-01-15 17:04 | XMS_ITS | Encounter Summary ---
:1940 Author Care Team Providers Name Role Phone Calixto Canales DO Primary Care Provider [phone] Hugo Douglas General Surgeon [phone] Reason for Visit dysphagia Assessment and Plan 1. Dysphagia Patient with esophageal dyspha sonido. States that the beginning of each meal he feels as though food gets caught in t he lower esophagus. By the fourth or fifth bite and swallow he finds the sensation resolves. X-ray esophagram to rule out web stricture or mass in the lower esophagus . Patient is in agreement with the plan. ? XR, esophagram - food gets stuck in lower esophagus upon initial ingestion. Clears as he eats. R/O web vs stircture vs mass. 2. Hypertensive disorder Much better since increasing t he losartan and adding the amlodipine. Discussion Note: None recorded.Patient educational handouts: No information available. Plan of Care Reminders Provider Appointments Cpe 20 Calixto S 06/13/2022 DO Parker 9:40AM Lab None recorded. ? ? Referral None recorded. ? ? Procedures None recorded. ? ? Surgeries None recorded. ? ? Imaging XR, Esophagram Nv Xray 12/06/2021 Medications Name Start Date ? ? amlodipine 5 mg tablet ? 1 tab daily diltiazem CD 240 mg capsule,extended release 24 hr ? Take 1 capsule every day by oral route. Eliquis 2.5 mg tablet ? Take 1 tablet twice a day by oral route for 90 days. lorazepam 0.5 mg tablet ? Take 1 tablet 3 times a day by oral route as needed. losartan 50 mg tablet ? Take 1.5 tablets every day by oral route for 90 days. Nitrostat 0.4 mg sublingual tablet ? Place 1 tablet as needed by sublingual route. omeprazole 20 mg capsule,delayed release ? Take 1 capsule every day by oral route for 30 days. zolpidem 5 mg tablet ? Take 1 tablet every day by oral route as needed for 1 0 days. Medications Administered None recorded. Vitals Height Weight BMI Blood Pressure 5 ft 7 in 177 lbs 27.7 kg/m2 132/62 mm[Hg] Results Lab Results None recorded. Allergies Code Code System Name Reaction Severity Onset 862908 RxNorm Jeanette ? ? ? Notes: No seafood allergy. No kn own contrast allergy. Problems Name Status Onset Date Source ? Hernia of Abdominal Cavity Active 07/07/2018 ? Insomnia Active 07/26/2021 ? Hypertensive Disorder Active ? History Paroxysmal Atrial Fibrillation Active ? H istory Kidney Disease Active ? History Large Prostate Active ? History Spermatocele Active ? History Pain in Thoracic Spine Active ? History Procedures Date Name Performed by ? 07/24/2018 Inguinal Hernia Repair (Surg) Informatio n not available Notes: left 05/04/2013 Colonoscopy Information not avai lable Notes: Hemorrhoid tissue; Normal 2002 05/04/2013 Egd Information not avai lable Notes: 2005-antral gastritis, med siz e hiatal hernia 10/20/1999 Hernia Repair Information not avai lable Notes: Inguinal with mesh right 12/06/2021 XR, Esophagram Xray [facility] [address] [address] [place], [place] [address] (Work [address]) Vaccine List Vaccine Type COVID-19, mRNA, LNP-S, PF, 100 mcg/0.5 m L dose (Moderna) 11/22/2020 12/20/2020 08/22/2021 influenza, injectable, quadrivalent 08/03/2020 09/28/2021 influenza, seasonal, injectable, preserv ative free 08/31/2015?0.5 mL pneumococcal conjugate PCV 13 10/04/2015?0.5 mL 10/02/2016?0.5 mL pneumococcal polysaccharide PPV23 04/09/2019?0.5 mL Social History Tobacco Smoking Status Never Smoker What is your code status? 0 How much tobacco do you chew? none Animal exposure? N Did the fall result in an N injury? What was the date of your 05/22/2020 most recent tobacco screening? Do you have an advanced Y directive? What is your exercise level? 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 N Notes: re tired What is your level of alcohol Occasional Notes: rare beer once a consumption? year Are you passively exposed to N smoke? Have you used IV drugs? N Are you blind or do you have N Notes: c orrective lenses difficulty seeing? Do you or have you ever used Never used electronic e-cigarettes or vape? cigarettes Do you feel safe at home? Y Which of your hands is Right dominant? 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 What is your level of Occasional Notes: one cup decaf caffeine consumption? coffee 1-3 times p er week What is your occupation? retired Have you fallen in the last 3 N months? Family History Relation Problem Onset Age of Age Notes Brother Hypertensive disorder (No N/A (No No temi) Information) Functional Status No Impairment. Past Encounters 12/06/2021 Dysphagia; Hypertensive Disorder Calixto Pacheco Parker, DO: [address] [place] [address], [place] [address], Ph. History of Present Illness Note: <div>Patient is here because he is having difficulty swallowing and has bouts of choking.Dry foods make his symptoms worse. He has also had some reflux, but is not taking his Omeprazole. Always with the first 3-4 bites but then clears after that. Here for evaluation today.</div>Review of Systems: ROS as noted in the HPI Review of Systems None recorded. Physical Exam ? Comprehensive PE (male) Reported By: Patient Constitutional: General Appearance: healthy- appearing, well-nourished, well-developed. Level of Dis tress: no apparent distress. Ambulation: ambulating yohan lly Neck: Neck: trachea midline, no ma sses, full range of motion. Thyroid: no enlargement, symmetrical, no n-tender, no palpable nodes Respiratory: Respiratory effort: unlabore d respirations, no use of accessory muscles. RUL Auscultation: b reath sounds normal, good air movement, clear to auscultation except as noted, no wheezing, no rales/crackles, no rhonchi. RLL Auscultation: breath sounds normal, good air movement, clear to auscultation except as noted, no wheezing, no rales/crackles, no rhonchi. STEPHANIE Auscultation: breath sounds normal, good air move ment, clear to auscultation except as noted, no wheezing, no rales /crackles, no rhonchi. LLL Auscultation: breath sounds normal, good air movement, clear to auscultation except as noted , no wheezing, no rales/crackles, no rhonchi Cardiovascular: Apical Impulse: not displace d. Heart Auscultation: regular rate and rhythm (RRR), normal S1, nor mal S2, no murmurs, no rubs, no gallops. Neck vessels: no ca rotid bruits. Pulses including femoral / pedal: normal throughout Gastrointestinal: Bowel Sounds: LLQ bowel soun ds normal, LUQ bowel sounds normal, RUQ bowel sounds normal, RLQ bow el sounds normal. Inspection and Palpation: ; No tenderness n or fullness upon palpation to the epigastrium. Liver: non-tend er, no hepatomegaly. Spleen: non-tender, no splenomegaly Neurologic: Orientation: oriented to per son, place, time and situation. Memory: recent memory normal, remote memory normal Psychiatric: Insight: good insight, good judgment. Mental Status: ; Much improved
--- OUTSIDE RECORDS SUMMARY | 2022-01-15 17:04 | XMS_ITS ---
:1940 Author Care Team Providers Name Role Phone JAMAL PADILLA Primary Care Provider [phone] LLOYD LUCAS General Surgeon [phone] Allergies Code Code System Name Reaction Severity Status Onset [id number] RxNorm Jeanette ? ? Active ? Notes: No seafood allergy. No kn own contrast allergy. Medications Name Status Start Date Stop Date ? ? amlodipine 5 mg tablet Active ? Not avail able 1 tab daily amoxicillin 875 mg tablet Completed ? 2018 aspirin 81 mg tablet Completed ? 05/22/2020 Take 1 tablet every day by oral route. aspirin 81 mg tablet,delayed release Completed 04/09/2012 06/27/[address]: qd - daily atorvastatin 10 mg tablet Completed 04/17/20162015 1 (one) Tablet: qhs - at bedtime cartia xt 240 mg cp24 Completed ? 0 diltiazem CD 180 mg capsule,extended release 24 hr Completed ? 01/24/2021 TAKE 1 CAPSULE BY MOUTH DAILY diltiazem CD 240 mg capsule,extended release 24 hr Active ? Not available Take 1 capsule every day by oral route. diltiazem hydrochloride er 180 Completed ? 04/19/2020 mg cp24 Eliquis 2.5 mg tablet Active ? Not availa ble Take 1 tablet twice a day by oral route for 90 days. Eliquis 5 mg tablet Completed ? 05/05/2020 Take 1 tablet twice a day by oral route for 30 days. Fish Oil 360 mg-1,200 mg capsule,delayed release Completed 04/09/2012 06/27/2015 1 Capsule: qd - daily Fluad Quad (65yr Completed ? 2019 up)(PF) 60 mcg (15 mcg x 4)/0.5mL IM syringe Fluzone High-Dose 2019- (PF) Completed ? 0 03/01/2020 180 mcg/0.5 mL intramuscular syringe levofloxacin 500 mg tablet Completed ? 03/10 lisinopril 20 mg tabs Completed ? 0 lisinopril 20 mg tablet Completed ? 01/10/20 21 TAKE 1.5 TABLET BY MOUTH DAILY lisinopril 40 mg tablet Completed ? 03/15/20 21 Take 1 tablet every day by oral route for 90 days. lorazepam 0.5 mg tablet Active ? Not avai lable Take 1 tablet 3 times a day by oral route as needed. losartan 50 mg tablet Active ? Not availa ble Take 1.5 tablets every day by oral route for 90 days. melatonin 3 mg tablet Completed ? 06/12/2021 Take 1 tablet every day by oral route. multivitamin capsule Completed 04/09/2012 06/27/2015 1 Capsule: qd - daily Nitrostat 0.4 mg sublingual tablet Active ? Not available Place 1 tablet as needed by sublingual route. omeprazole 20 mg capsule,delayed release Active ? Not available Take 1 capsule every day by oral route for 30 days. oxycodone 5 mg tablet Completed ? 02/03/2019 Take 1 tablet every 6 hours by oral route as needed for 3 days. Take for severe pain only. prednisone 20 mg tablet Completed ? 02/04/20 19 Prevacid 15 mg capsule,delayed release Completed 5 06/07/[address]: PRN/ OTC sertraline 50 mg tablet Completed ? 12/06/19 22 Take 1 tablet every day by oral route for 90 days. tamsulosin 0.4 mg capsule Completed ? 2020 Take 1 capsule every day by oral route for 30 days. trazodone 100 mg tablet Completed ? 01/10/20 21 Take 1 tablet every day by oral route at bedtime for 90 days. trazodone 50 mg tablet Completed 11/01/2020 1 Take 1 tablet every day by oral route for 30 days. zolpidem 5 mg tablet Active ? Not availab le Take 1 tablet every day by oral route as needed for 10 days. Problems Name Status Onset Date Source ? Hernia of Abdominal Cavity Active 07/07/2018 ? Insomnia Active 07/26/2021 ? Hypertensive Disorder Active ? History Paroxysmal Atrial Fibrillation Active ? H istory Kidney Disease Active ? History Large Prostate Active ? History Spermatocele Active ? History Pain in Testicle Unknown ? History Pain in Thoracic Spine Active ? History Dizziness and Giddiness Unknown ? History Palpitations Unknown ? History Family History of Cardiovascular Unknown ? History Disease Adult Health Examination Unknown ? History Screening for Cardiovascular System Unknown ? History Disease At Risk - Finding Unknown ? History Procedure by Method Unknown ? History Screening Procedure Unknown ? History Long-term Current Use of Drug Therapy Unknown ? History Procedures Date Name Performed by ? 07/24/2018 Inguinal Hernia Repair (Surg) Informatio n not available Notes: left 05/04/2013 Colonoscopy Information not avai lable Notes: Hemorrhoid tissue; Normal 2002 05/04/2013 Egd Information not avai lable Notes: 2005-antral gastritis, med siz e hiatal hernia 10/20/1999 Hernia Repair Information not avai lable Notes: Inguinal with mesh right 06/24/2018 US, Extremity, Nonvascular, Limited [facility] Radiology (Internal) [address] [place] [address] (Work Place) 06/25/2018 US, Scrotum [facility] (Internal) [address] [place] [address] (Work Place) 07/24/2018 US, Retroperitoneum [facility] (Internal) [address] [place] [address] (Work Place) 04/19/2020 Electrocardiogram [facility] [place] [address] [place] [address] (Work Place) 08/16/2021 CT, Abdomen, W/wo Contrast Xray [facility] [address], [place] [address] (Work Place) 12/06/2021 XR, Esophagram Xray Nv [address] [address], [place] [address] (Work Place) 12/07/2021 XR, Esophagram Xray Nv [address], [place] [address] (Work Place) Results Lab Results Date Name Specimen Result Interpretation Description Value Range Status Address ? 08/16/2021 Renal S High g/r 153 mg/dL 74-106 Final Nor th Function mg/dL [facility] Panel, Serum Hosp ital Lab (Internal) : [address] ? ? S High Bun 27 mg/dL 7-18 Final [facility] mg/dL [facility] ([facility] : [address] ? ? S High Crea 1.5 mg/dL 0.7-1.3 Final [facility] mg/dL [facility] (Internal) : [address] ? ? S ? Ca 9.2 mg/dL 8.5-10.1 Final [facility] mg/dL [facility] (Internal) : [address] ? ? S ? Phos 3.5 mg/dL 2.6-4.7 Final [facility] mg/dL [facility] (Internal) : [address] ? ? S ? Na 140 mmol/L 136-145 Final North mmol/L [facility] (Internal) : [address] ? ? S ? K 5.1 mmol/L 3.5-5.1 Final [facility] mmol/L [facility] (Internal) : [address] ? ? S ? Cl 104 mmol/l 98-107 Final [place] mmol/l [facility] L ab (Internal) : [address] ? ? S ? Tco2 26.5 21.0-32.0 Final [place] mmol/L mmol/L [facility] (Internal) : [address] ? ? S ? Alb 3.6 g/dL 3.4-5.0 Final [facility] g/dL [facility] (Internal) : [address] ? ? S Low GFR 46 >89 Final North (Calc) [facility] (Internal) : [address] 08/16/2021 Venipuncture Blood ? Locatio Left ? ? P_nc Primary venous n [facility] [place]: [address], [place] ? ? Blood ? Needle 21g ? ? P_nc Prim merrick venous Vacutainer Care [place]: [address], [place] ? ? Blood ? Number 1 ? ? P_nc Prim merrick venous of Care Attempts [place]: [address], [place] ? ? Blood ? Success Yes ? ? P_nc Karla prabhjot venous ful Care [place]: [address] [facility], [place] ? ? Blood ? Dressin Pressure ? ? P_nc P rimary venous g Band-aid Care Applied [place] nas[place]: [address], [place] 06/12/2021 Renal S High g/r 131 mg/dL 74-106 Final Nor th Function mg/dL [facility] Panel, Serum Hosp ital Lab (Internal) : [address] ? ? S High Bun 34 mg/dL 9-20 Final [facility] mg/dL [facility] (Internal) : [address] ? ? S High Crea 1.50 mg/dL 0.66-1.25 Final Nor th mg/dL [facility] (Internal) : [address] ? ? S ? Ca 9.3 mg/dL 8.4-10.2 Final North mg/dL [facility] (Internal) : [address] ? ? S ? Phos 3.6 mg/dL 2.5-4.5 Final [facility] mg/dL [facility] (Internal) : [address] ? ? S ? Na 140 mmol/L 137-145 Final [facility] mmol/L [facility] (Internal) : [address] ? ? S ? K 4.4 mmol/L 3.5-5.1 Final [facility] mmol/L [facility] (Internal) : [address] ? ? S High Cl 108 mmol/L 98-107 Final [facility] mmol/L [facility] (Internal) : [address] ? ? S ? Tco2 23.0 22.0-30.0 Final North mmol/L mmol/L [facility] (Internal) : [address] ? ? S ? Alb 3.8 g/dL 3.5-5.0 Final [facility] g/dL [facility] (Internal) : [address] ? ? S Low GFR 45 >89 Final North (Calc) [facility] (Internal) : [address] 06/12/2021 Thyroid S High Tsh 4.73 0.47-4.68 Final No rth [place], u[IU]/mL u[IU]/mL [facility] Serum Hospital L ab (Internal) : [address] 06/12/2021 T4, Free, S ? Ft4 0.85 NG/dL 0.78-2.19 Fin al [place] Serum NG/dL [facility] L ab (Internal) : [address] 06/12/2021 T3, Free, S ? T3, 3.2 pg/mL 2.8-5.3 Final [place] Serum or Free pg/mL [facility] L ab (Internal) : [address] 03/11/2021 EKG Done by ? No ? ? ? N orth ED observat [facility] L ab recorded (Interna l): . [address] 03/10/2021 CBC W/ Auto BLD ? Wbc 10.0 5.0-10.0 Final [place] Diff 10*3/uL 10*3/uL [facility] L ab (Internal) : [address] ? ? BLD Low Rbc 4.47 4.60-6.00 Final [place] 10*6/uL 10*6/uL [facility] L ab (Internal) : [address] ? ? BLD Low Hgb 13.7 g/dL 14.0-18.0 Final Nort h g/dL [facility] L ab (Internal) : [address] ? ? BLD ? Hct 42.1 % 41.0-51.0 Final [facility] L ab (Internal) : [address] ? ? BLD ? Mcv 94.2 fL 80.0-96.0 Final [place] fL [facility] L ab (Internal) : [address] ? ? BLD ? Mch 30.6 pg 26.0-32.0 Final [place] pg [facility] L ab (Internal) : [address] ? ? BLD ? Mchc 32.5 g/dL 31.0-35.0 Final Nort h g/dL [facility] L ab (Internal) : [address] ? ? BLD ? Rdw 12.8 % 11.5-14.5 Final [facility] Hospital L ab (Internal) : [address] ? ? BLD ? Plt 196 130-450 Final North 10*3/uL 10*3/uL [facility] L ab (Internal) : [address] ? ? BLD ? Anc 6.15 ? Final North 10*3/uL [facility] Hospital L ab (Internal) : [address] ? ? BLD ? Nlr 2.37 0.00-3.20 Final [facility] Hospital L ab (Internal) : [address] ? ? BLD ? Neutro 61.4 % 40.0-75.0 Final [facility] Hospital L ab (Internal) : [address] ? ? BLD ? Lymph 25.9 % 20.0-50.0 Final [facility] L ab (Internal) : [address] ? ? BLD ? [place] 8.5 % 2.0-10.0 Final [facility] L ab (Internal) : [address] ? ? BLD ? Eos 2.6 % 1.0-6.0 % Final [facility] L ab (Internal) : [address] ? ? BLD ? Baso 0.8 % 0.0-1.0 % Final [facility] Hospital L ab (Internal) : [address] ? ? BLD ? Ig 0.8 % 0.0-0.9 % Final [facility] Hospital L ab (Internal) : [address] 03/10/2021 CMP, Serum or S High g/r 129 mg/dL 74-106 Fin al [place] Plasma mg/dL [facility] (Internal) : [address] ? ? S High Bun 33 mg/dL 9-20 Final North mg/dL [facility] L ab (Internal) : [address] ? ? S High Crea 1.60 mg/dL 0.66-1.25 Final Nor th mg/dL [facility] (Internal) : [address] ? ? S ? Ca 9.1 mg/dL 8.4-10.2 Final [facility] mg/dL [facility] (Internal) : [address] ? ? S ? Na 141 mmol/L 137-145 Final North mmol/L [facility] L ab (Internal) : [address] ? ? S ? K 4.5 mmol/L 3.5-5.1 Final North mmol/L [facility] L ab (Internal) : [address] ? ? S ? Cl 106 mmol/L 98-107 Final [place] mmol/L [facility] L ab (Internal) : [address] ? ? S ? Tco2 22.0 22.0-30.0 Final [place] mmol/L mmol/L [facility] L ab (Internal) : [address] ? ? S ? Tp 6.7 g/dL 6.3-8.2 Final North g/dL [facility] L ab (Internal) : [address] ? ? S ? Alb 3.9 g/dL 3.5-5.0 Final [place] g/dL [facility] L ab (Internal) : [address] ? ? S ? Tbil 0.4 mg/dL 0.2-1.3 Final [place] mg/dL [facility] L ab (Internal) : [address] ? ? S ? Alp 100 U/L 38-126 Final North U/L [facility] L ab (Internal) : [address] ? ? S Low Alt 18 U/L 21-72 U/L Final [place] (Sgpt) [facility] L ab (Internal) : [address] ? ? S ? Ast 28 U/L 17-59 U/L Final [place] (Sgot) [facility] L ab (Internal) : [address] 03/10/2021 Troponin I, S ? Trop <0.06 0.00-0.06 Final [place] Serum or NG/mL NG/mL [facility] Plasma Hospital L ab (Internal) : [address] 01/23/2021 Thyroid S ? Tsh 3.88 0.47-4.68 Final No rth [place], u[IU]/mL u[IU]/mL [facility] L ab (Internal) : [address] 2020 Thyroid S High Tsh 5.79 0.47-4.68 Final No rth [place], u[IU]/mL u[IU]/mL [facility] L ab (Internal) : [address] 2020 T4, Free, S ? Ft4 1.01 NG/dL 0.78-2.19 Fin [facility] Serum NG/dL [facility] L ab (Internal) : [address] 2020 Venipuncture ? Locatio Right ? ? P_nc Primary n [facility] [place]: [address], [place] ? ? ? Needle 21g ? ? P_nc Prim merrick Vacutainer Care [place]: [address], [place] ? ? ? Number 1 ? ? P_nc Prim merrick of Care Attempts [place]: [address], [place] ? ? ? Success Yes ? ? P_nc Karla rick ful Care [place]: [address], [place] ? ? ? Dressin Pressure ? ? P_nc P rimary g Band-aid Care Applied [place]: [address], [place] ? ? ? Initial HJ ? ? P_nc Karla rick s Care [place]: [address], [place] 09/04/2020 CBC W/ Auto BLD ? Wbc 9.5 5.0-10.0 Final [place] Diff 10*3/uL 10*3/uL [facility] L ab (Internal) : [address] ? ? BLD ? Rbc 4.78 4.60-6.00 Final [place] 10*6/uL 10*6/uL [facility] L ab (Internal) : [address] ? ? BLD ? Hgb 14.6 g/dL 14.0-18.0 Final Nort h g/dL [facility] L ab (Internal) : [address] ? ? BLD ? Hct 44.7 % 41.0-51.0 Final [place] % [facility] L ab (Internal) : [address] ? ? BLD ? Mcv 93.5 fL 80.0-96.0 Final [facility] Hospital L ab (Internal) : [address] ? ? BLD ? Mch 30.5 pg 26.0-32.0 Final [facility] Hospital L ab (Internal) : [address] [place] ? ? BLD ? Mchc 32.7 g/dL 31.0-35.0 Final Nort h g/dL [facility] L ab (Internal) : [address] ? ? BLD ? Rdw 12.2 % 11.5-14.5 Final [facility] L ab (Internal) : [address] ? ? BLD ? Plt 203 130-450 Final [place] 10*3/uL 10*3/uL [facility] L ab (Internal) : [address] ? ? BLD ? Anc 6.40 ? Final [place] 10*3/uL [facility] L ab (Internal) : [address] ? ? BLD High Nlr 3.23 0.00-3.20 Final [facility] L ab (Internal) : [address] ? ? BLD ? Neutro 67.5 % 40.0-75.0 Final [facility] L ab (Internal) : [address] ? ? BLD ? Lymph 20.9 % 20.0-50.0 Final [facility] L ab (Internal) : [address] ? ? BLD ? [place] 7.9 % 2.0-10.0 Final [facility] L ab (Internal) : [address] ? ? BLD ? Eos 1.8 % 1.0-6.0 % Final [facility] L ab (Internal) : [address] ? ? BLD ? Baso 0.6 % 0.0-1.0 % Final [facility] L ab (Internal) : [address] ? ? BLD High Ig 1.3 % 0.0-0.9 % Final [facility] L ab (Internal) : [address] 09/04/2020 CMP, Serum or S High g/r 131 mg/dL 74-106 Fin al [place] Plasma mg/dL [facility] (Internal[facility] : [address] ? ? S High Bun 31 mg/dL 9-20 Final [facility] mg/dL [facility] (Internal) : [address] ? ? S High Crea 1.30 mg/dL 0.66-1.25 Final Nor th mg/dL [facility] (Internal) : [address] ? ? S ? Ca 9.6 mg/dL 8.4-10.2 Final [facility] mg/dL [facility] (Internal) : [address] ? ? S ? Na 141 mmol/L 137-145 Final [facility] mmol/L [facility] (Internal) : [address] ? ? S ? K 4.4 mmol/L 3.5-5.1 Final [facility] mmol/L [facility] (Internal) : [address] ? ? S ? Cl 107 mmol/L 98-107 Final [facility] mmol/L [facility] (Internal) : [address] ? ? S ? Tco2 26.0 22.0-30.0 Final [place] mmol/L mmol/L [facility] (Internal) : [address] ? ? S ? Tp 7.3 g/dL 6.3-8.2 Final [facility] g/dL [facility] (Internal) : [address] ? ? S ? Alb 4.4 g/dL 3.5-5.0 Final [facility] g/dL [facility] (Internal) : [address] ? ? S ? Tbil 0.6 mg/dL 0.2-1.3 Final [facility] mg/dL [facility] (Internal) : [address] ? ? S ? Alp 106 U/L 38-126 Final [place] U/L [facility] L ab (Internal) : [address] ? ? S Low Alt 18 U/L 21-72 U/L Final [place] (Sgpt) [facility] L ab (Internal) : [address] ? ? S ? Ast 29 U/L 17-59 U/L Final [place] (Sgot) [facility] L ab (Internal) : [address] 09/04/2020 Troponin I, S ? Trop <0.06 0.00-0.06 Final [place] Serum or NG/mL NG/mL [facility] Plasma [facility] L ab (Internal) : [address] 09/04/2020 EKG Done by ? No ? ? ? N orth ED observat [facility] L ab recorded (Interna l): . [address] 09/04/2020 EKG Done by ? No ? ? ? N orth ED observat [facility] L ab recorded (Interna l): . [address] 08/29/2020 CBC W/ Auto BLD ? Wbc 9.4 5.0-10.0 Final [place] Diff 10*3/uL 10*3/uL [facility] L ab (Internal) : [address] ? ? BLD Low Rbc 4.42 4.60-6.00 Final [place] 10*6/uL 10*6/uL [facility] L ab (Internal) : [address] ? ? BLD Low Hgb 13.6 g/dL 14.0-18.0 Final Nort h g/dL [facility] L ab (Internal) : [address] ? ? BLD ? Hct 41.3 % 41.0-51.0 Final [facility] L ab (Internal) : [address] ? ? BLD ? Mcv 93.4 fL 80.0-96.0 Final [facility] L ab (Internal) : [address] ? ? BLD ? Mch 30.8 pg 26.0-32.0 Final [facility] L ab (Internal) : [address] ? ? BLD ? Mchc 32.9 g/dL 31.0-35.0 Final Nort h g/dL [facility] L ab (Internal) : [address] ? ? BLD ? Rdw 12.3 % 11.5-14.5 Final [facility] L ab (Internal) : [address] ? ? BLD ? Plt 197 130-450 Final [place] 10*3/uL 10*3/uL [facility] L ab (Internal) : [address] [place] ? ? BLD ? Anc 6.64 ? Final [place] 10*3/uL [facility] L ab (Internal) : [address] [place] ? ? BLD High Nlr 3.86 0.00-3.20 Final [facility] L ab (Internal) : [address] [place] ? ? BLD ? Neutro 70.9 % 40.0-75.0 Final [facility] L ab (Internal) : [address] [place] ? ? BLD Low Lymph 18.3 % 20.0-50.0 Final [facility] L ab (Internal) : [address] [place] ? ? BLD ? [place] 6.8 % 2.0-10.0 Final [facility] L ab (Internal) : [address] [place] ? ? BLD ? Eos 2.0 % 1.0-6.0 % Final [facility] L ab (Internal) : [address] [place] ? ? BLD ? Baso 0.7 % 0.0-1.0 % Final [facility] L ab (Internal) : [address] [place] ? ? BLD High Ig 1.3 % 0.0-0.9 % Final [facility] L ab (Internal) : [address] [place] 08/29/2020 Urinalysis, UR ? UA-colo pale pale Final [place] Dipstick, r yellow yellow [facility] Lab (Internal) : [address] [place] ? ? UR ? UA-appe clear clear Final [facility] Hospital L ab (Internal) : [address] [place] ? ? UR ? UA-spec 1.015 1.003-1.0 Final [place] Grav [address] [place] [address] Hospital L ab (Internal) : [address] [place] ? ? UR ? UA-pH 6.0 [pH] 4.6-8.0 Final [place] [pH] [facility] L ab (Internal) : [address] ? ? UR ? UA-leuk negative negative Final Nort h Est [facility] L ab (Internal) : [address] [place] ? ? UR ? UA-nitr negative negative Final Nort h ite [facility] L ab (Internal) : [address] ? ? UR ? UA-prot negative negative Final Nort h [facility] L ab (Internal) : [address] ? ? UR ? UA-gluc negative negative Final Nort h [facility] L ab (Internal) : [address] ? ? UR ? UA-keto negative negative Final Nort h ne [facility] L ab (Internal) : [address] ? ? UR ? UA-urob normal normal Final North il [facility] L ab (Internal) : [address] ? ? UR ? UA-bili negative negative Final Nort h [facility] L ab (Internal) : [address] ? ? UR ? UA-bloo negative negative Final Nort h d [facility] L ab (Internal) : [address] 08/29/2020 CMP, Serum or S High g/r 139 mg/dL 74-106 Fin al [place] Plasma mg/dL [facility] L ab (Internal) : [address] ? ? S High Bun 33 mg/dL 9-20 Final North mg/dL [facility] L ab (Internal) : [address] ? ? S High Crea 1.40 mg/dL 0.66-1.25 Final Nor th mg/dL [facility] L ab (Internal) : [address] ? ? S ? Ca 9.6 mg/dL 8.4-10.2 Final North mg/dL [facility] L ab (Internal) : [address] ? ? S ? Na 138 mmol/L 137-145 Final North mmol/L [facility] L ab (Internal) : [address] ? ? S ? K 4.9 mmol/L 3.5-5.1 Final [place] mmol/L [facility] L ab (Internal) : [address] ? ? S ? Cl 106 mmol/L 98-107 Final [place] mmol/L [facility] L ab (Internal) : [address] ? ? S ? Tco2 22.0 22.0-30.0 Final North mmol/L mmol/L [facility] L ab (Internal) : [address] ? ? S ? Tp 6.5 g/dL 6.3-8.2 Final [place] g/dL [facility] L ab (Internal) : [address] ? ? S ? Alb 3.8 g/dL 3.5-5.0 Final [place] g/dL [facility] L ab (Internal) : [address] ? ? S ? Tbil 0.4 mg/dL 0.2-1.3 Final [place] mg/dL [facility] L ab (Internal) : [address] ? ? S ? Alp 84 U/L 38-126 Final [place] U/L [facility] L ab (Internal) : [address] ? ? S Low Alt 17 U/L 21-72 U/L Final [place] (Sgpt) [facility] L ab (Internal) : [address] ? ? S ? Ast 29 U/L 17-59 U/L Final [place] (Sgot) [facility] L ab (Internal) : [address] 08/29/2020 Thyroid S High Tsh 6.75 0.47-4.68 Final No rth [place], u[IU]/mL u[IU]/mL [facility] L ab (Internal) : [address] 08/29/2020 T4, Free, S ? Ft4 0.79 NG/dL 0.78-2.19 Fin al [place] Serum NG/dL [facility] L ab (Internal) : [address] 08/29/2020 Venipuncture ? Locatio Left Hand ? ? P_nc Primary n Care [place]: [address], [place] ? ? ? Needle 23g ? ? P_nc Prim merrick Butterfly Care [place]: [address], [place] ? ? ? Number 1 ? ? P_nc Prim merrick of Care Attempts [place]: [address], [place] ? ? ? Success Yes ? ? P_nc Karla prabhjot ful Care [place]: [address], [place] ? ? ? Dressin Pressure ? ? P_nc P rimary g Band-aid Care Applied [place]: [address] [facility] [address], [place] ? ? ? Initial hj ? ? P_nc Karla prabhjot s Care [place]: [address], [place] 06/08/2020 Renal S High g/r 115 mg/dL 74-106 Final Nor th Function mg/dL [facility] Panel, Serum Hosp ital Lab (Internal) : [address] ? ? S High Bun 39 mg/dL 9-20 Final [facility] mg/dL [facility] (Internal) : [address] ? ? S High Crea 1.60 mg/dL 0.66-1.25 Final Nor th mg/dL [facility] L [facility] (Internal) : [address] ? ? S ? Ca 9.7 mg/dL 8.4-10.2 Final [facility] : [address] t ? ? S ? Phos 3.4 mg/dL 2.5-4.5 Final [facility] mg/dL [facility] ([facility] : [address] t ? ? S ? Na 138 mmol/L 137-145 Final [facility] mmol/L [facility] ([facility]) : [address] t ? ? S ? K 5.0 mmol/L 3.5-5.1 Final [facility] mmol/L [facility] ([facility] : [address] t ? ? S ? Cl 105 mmol/L 98-107 Final [facility] mmol/L [facility] ([facility]) : [address] t ? ? S ? Tco2 25.0 22.0-30.0 Final [facility] mmol/L mmol/L [facility] ([facility]) : [address] t ? ? S ? Alb 3.9 g/dL 3.5-5.0 Final [facility] g/dL [facility] ([facility] : [address] t ? ? S Low GFR 42 >89 Final [facility] (Calc) [facility] ([facility] : [address] 06/08/2020 Thyroid S High Tsh 4.96 0.47-4.68 Final No rth [place], u[IU]/mL u[IU]/mL Coun [facility] L ab (Internal) : [address] 06/08/2020 T4, Free, S ? Ft4 0.81 NG/dL 0.78-2.19 Fin [facility] Serum NG/dL [facility] L ab (Internal) : [address] 06/08/2020 Venipuncture Blood ? Locatio Right ? ? P_nc Primary venous n [facility] Care l [place]l [place] ns: [address], [place] ? ? Blood ? Needle 21g ? ? P_nc Prim merrick venous Vacutainer Care [place] ns: [address], [place] ? ? Blood ? Number 1 ? ? P_nc Prim merrick venous of Care Attempts [place] rlea ns: [address], [place] ? ? Blood ? Success Yes ? ? P_nc Karla prabhjot venous ful Care [place]l [place] ns: [address], [place] ? ? Blood ? Dressin Pressure ? ? P_nc P rimary venous g Band-aid Care Applied [place] nasrin ns: [address], [place] 06/04/2020 Urinalysis, UR ? UA-colo pale pale Final [facility] Dipstick, r yellow yellow [facility] Lab (Internal) : [address] t ? ? UR ? UA-appe clear clear Final [facility] L ab (Internal) : [address] ? ? UR ? UA-spec <=1.005 1.003-1.0 Final Nort h Grav 35 [facility] L ab (Internal) : [address] t ? ? UR ? UA-pH 6.0 [pH] 4.6-8.0 Final [facility] [pH] [facility] L ab (Internal) : [address] t ? ? UR ? UA-leuk negative negative Final Nort h Est [facility] L ab (Internal) : [address] t ? ? UR ? UA-nitr negative negative Final Nort h ite [facility] L ab (Internal) : [address] t ? ? UR ? UA-prot negative negative Final Nort h [facility] L ab (Internal) : [address] t ? ? UR ? UA-gluc negative negative Final Nort h [facility] L ab (Internal) : [address] t ? ? UR ? UA-keto negative negative Final Nort h ne [facility] L ab (Internal) : [address] t ? ? UR ? UA-urob normal normal Final [facility] L ab (Internal) : [address] t ? ? UR ? UA-bili negative negative Final Nort h [facility] L ab (Internal) : [address] t ? ? UR ? UA-bloo negative negative Final Nort h d [facility] L ab (Internal) : [address] 05/22/2020 EKG Done by ? No ? ? ? N orth Lab observat [facility] L ab recorded (Interna l): . [address] 04/30/2020 CBC W/ Auto BLD ? Wbc 9.7 5.0-10.0 Final [facility] Diff 10*3/uL 10*3/uL [facility] L ab (Internal) : [address] t ? ? BLD Low Rbc 4.37 4.60-6.00 Final [facility] 10*6/uL 10*6/uL [facility] L ab (Internal) : [address] t ? ? BLD Low Hgb 13.5 g/dL 14.0-18.0 [facility] (Internal[facility] : [address] t ? ? BLD Low Hct 40.4 % 41.0-51.0 Final [facility] L ab (Internal) : [address] t ? ? BLD ? Mcv 92.4 fL 80.0-96.0 Final [facility] L ab (Internal) : [address] t ? ? BLD ? Mch 30.9 pg 26.0-32.0 Final [facility] L ab (Internal) : [address] t ? ? BLD ? Mchc 33.4 g/dL 31.0-35.0 Final Nort h g/dL [facility] L ab (Internal) : [address] ? ? BLD ? Rdw 12.7 % 11.5-14.5 Final [facility] L ab (Internal) : [address] ? ? BLD ? Plt 203 130-450 Final North 10*3/uL 10*3/uL [facility] L ab (Internal) : [address] ? ? BLD ? Anc 6.80 ? Final [facility] 10*3/uL [facility] L ab (Internal) : [address] ? ? BLD High Nlr 3.42 0.00-3.20 Final [facility] L ab (Internal) : [address] ? ? BLD ? Neutro 69.9 % 40.0-75.0 Final [facility] L ab (Internal) : [address] t ? ? BLD ? Lymph 20.4 % 20.0-50.0 Final [facility] L ab (Internal) : [address] ? ? BLD ? [place] 6.6 % 2.0-10.0 Final [facility] L ab (Internal) : [address] ? ? BLD ? Eos 1.8 % 1.0-6.0 % Final [facility] L ab (Internal) : [address] ? ? BLD ? Baso 0.6 % 0.0-1.0 % Final [facility] L ab (Internal) : [address] t ? ? BLD ? Ig 0.7 % 0.0-0.9 % Final [facility] L ab (Internal) : [address] t 04/30/2020 BMP, Serum or S High g/r 126 mg/dL 74-106 Fin al [facility] Plasma mg/dL [facility] L ab (Internal) : [address] t ? ? S High Bun 29 mg/dL 9-20 Final North mg/dL [facility] L ab (Internal) : [address] ? ? S High Crea 1.60 mg/dL 0.66-1.25 Final Nor th mg/dL [facility] L ab (Internal) : [address] t ? ? S ? Ca 9.5 mg/dL 8.4-10.2 Final North mg/dL [facility] L ab (Internal) : [address] t ? ? S ? Na 139 mmol/L 137-145 Final [facility] mmol/L [facility] L ab (Internal) : [address] t ? ? S ? K 4.7 mmol/L 3.5-5.1 Final [facility] mmol/L [facility] L ab (Internal) : [address] t ? ? S High Cl 108 mmol/L 98-107 Final [facility] mmol/L [facility] L ab (Internal) : [address] t ? ? S ? Tco2 23.0 22.0-30.0 Final [facility] mmol/L mmol/L [facility] L ab (Internal) : [address] 04/30/2020 Troponin I, S ? Trop <0.06 0.00-0.06 Final [facility] Serum or NG/mL NG/mL [facility] L ab (Internal) : [address] 04/30/2020 Urinalysis, UR ? UA-colo pale pale Final [facility] Dipstick, r yellow yellow [facility] Lab (Internal) : [address] t ? ? UR ? UA-appe clear clear Final [facility] L ab (Internal) : [address] t ? ? UR ? UA-spec 1.010 1.003-1.0 Final [facility] Grav 35 [facility] L ab (Internal) : [address] t ? ? UR ? UA-pH 6.0 [pH] 4.6-8.0 Final [facility] [pH] [facility] L ab (Internal) : [address] t ? ? UR ABNORMAL UA-leuk trace negative Final Nort h Est [facility] L ab (Internal) : [address] ? ? UR ? UA-nitr negative negative Final Nort h ite [facility] L ab (Internal) : [address] t ? ? UR ? UA-prot negative negative Final Nort h [facility] L ab (Internal) : [address] t ? ? UR ? UA-gluc negative negative Final [facility] (Internal) : [address] ? ? UR ? UA-keto negative negative Final Nort h ne [facility] ab (Internal) : [address] ? ? UR ? UA-urob normal normal Final North [facility] ab (Internal) : [address] ? ? UR ? UA-bili negative negative Final Nort h [facility] ab (Internal) : [address] ? ? UR ? UA-bloo negative negative Final Nort h d [facility] ab (Internal) : [address] 04/30/2020 Urinalysis, UR ? UA-WBC 0-3 [hpf] 0-3 [hpf] F inal [facility] Microscopic Count [facility] ab (Internal) : [address], [place] ? ? UR ? UA-RBC 0-2 [hpf] 0-2 [hpf] Final Nor th [facility] ab (Internal) : [address] ? ? UR ? UA-bact rare [hpf] none seen Final N adam wymania [hpf] [facility] ab (Internal) : [address] ? ? UR ? UA-epit rare [hpf] none seen Final N adam varner [hpf] [facility] (Internal) : [address] [place] ? ? UR ? UA-mucu none seen none seen Final No rth s [hpf] [hpf] [facility] (Internal) : [address] 04/20/2020 Electrocardio ? Rate & ? ? ? P_nc Primary gram Rhythm Care [place] ns: [address] [facility], [place] ? ? ? Qrs ? ? ? P_nc Prima ry Care [place]: [address], [place] ? ? ? MD ? ? ? P_nc Prima ry Interval Care [place] ns: [address] [facility], [place] ? ? ? QRS ? ? ? P_nc Prima ry Duration Care [place] ns: [address], [place] ? ? ? QT ? ? ? P_nc Prima ry Interval Care [place]: [address] [facility], [place] 04/17/2020 CBC W/ Auto BLD ? Wbc 9.1 5.0-10.0 Final [facility] Diff 10*3/uL 10*3/uL [facility] L ab (Internal) : [address] ? ? BLD ? Rbc 4.97 4.60-6.00 Final [facility] 10*6/uL 10*6/uL [facility] L ab (Internal) : [address] ? ? BLD ? Hgb 15.1 g/dL 14.0-18.0 Final Nort h g/dL [facility] L ab (Internal) : [address] ? ? BLD ? Hct 45.6 % 41.0-51.0 Final [facility] L ab (Internal) : [address] ? ? BLD ? Mcv 91.8 fL 80.0-96.0 Final [facility] L ab (Internal) : [address] ? ? BLD ? Mch 30.4 pg 26.0-32.0 Final [facility] L ab (Internal) : [address] ? ? BLD ? Mchc 33.1 g/dL 31.0-35.0 Final Nort h g/dL [facility] L ab (Internal) : [address] ? ? BLD ? Rdw 12.9 % 11.5-14.5 Final [facility] L ab (Internal) : [address] ? ? BLD ? Plt 183 130-450 Final [facility] 10*3/uL 10*3/uL [facility] L ab (Internal) : [address] ? ? BLD ? Anc 4.94 ? Final [facility] 10*3/uL [facility] L ab (Internal) : [address] ? ? BLD ? Nlr 1.73 0.00-3.20 Final [facility] L ab (Internal) : [address] ? ? BLD ? Neutro 54.4 % 40.0-75.0 Final [facility] L ab (Internal) : [address] ? ? BLD ? Lymph 31.5 % 20.0-50.0 Final [facility] ([facility] : [address] ? ? BLD ? [place] 8.6 % 2.0-10.0 Final North % [facility] L ab (Internal) : [address] ? ? BLD ? Eos 3.4 % 1.0-6.0 % Final [facility] L ab (Internal) : [address] ? ? BLD ? Baso 0.8 % 0.0-1.0 % Final [facility] L ab (Internal) : [address] ? ? BLD High Ig 1.3 % 0.0-0.9 % Final [facility] L ab (Internal) : [address] t 04/17/2020 CMP, Serum or S High g/r 119 mg/dL 74-106 Fin al [facility] Plasma mg/dL [facility] (Internal) : [address] ? ? S High Bun 32 mg/dL 9-20 Final North mg/dL [facility] L ab (Internal) : [address] t ? ? S High Crea 1.30 mg/dL 0.66-1.25 Final Nor th mg/dL [facility] (Internal) : [address] ? ? S ? Ca 9.4 mg/dL 8.4-10.2 Final North mg/dL [facility] L ab (Internal) : [address] ? ? S ? Na 142 mmol/L 137-145 Final North mmol/L [facility] L ab (Internal) : [address] ? ? S ? K 3.9 mmol/L 3.5-5.1 Final [place] mmol/L [facility] L ab (Internal) : [address] t ? ? S High Cl 108 mmol/L 98-107 Final North mmol/L [facility] L ab (Internal) : [address] t ? ? S ? Tco2 24.0 22.0-30.0 Final North mmol/L mmol/L [facility] (Internal) : [address] ? ? S ? Tp 7.4 g/dL 6.3-8.2 Final [facility] g/dL [facility] ([facility] : [address] [facility] ? ? S ? Alb 4.2 g/dL 3.5-5.0 Final [facility] g/dL [facility] L ab (Internal) : [address] [facility] ? ? S ? Tbil 0.5 mg/dL 0.2-1.3 Final [facility] mg/dL [facility] L ab (Internal) : [address] ? ? S ? Alp 122 U/L 38-126 Final [facility] U/L [facility] ab (Internal) : [address] [facility] ? ? S Low Alt 19 U/L 21-72 U/L Final [facility] (Sgpt) [facility] L ab (Internal) : [address] t ? ? S ? Ast 30 U/L 17-59 U/L [facility] (Sgot) [facility] L ab (Internal) : [address] [facility] 04/17/2020 Troponin I, S ? Trop <0.06 0.00-0.06 Final [facility] Serum or NG/mL NG/mL [facility] L ab (Internal) : [address] [facility] 04/17/2020 TSH, Serum or S High Tsh 12.80 0.47-4.68 Fin al [facility] Plasma u[IU]/mL u[IU]/mL [facility] L ab (Internal) : [address] [facility] 04/17/2020 Troponin I, S ? Trop <0.06 0.00-0.06 Final [facility] Serum or NG/mL NG/mL [facility] L ab (Internal) : [address] [facility] 04/17/2020 T4, Free, S Low Ft4 0.76 NG/dL 0.78-2.19 Fin al [facility] Serum NG/dL [facility] L ab (Internal) : [address] [facility] 04/17/2020 T3, Free, S ? T3, 3.7 pg/mL 2.8-5.3 Final [facility] Serum or Free pg/mL [facility] L ab (Internal) : [address] [facility] 03/01/2020 Urinalysis, UR ? UA-colo pale pale Final [facility] Dipstick, r yellow yellow [facility] (Internal) : [address] t ? ? UR ? UA-appe clear clear Final North ar [facility] L ab (Internal) : [address] ? ? UR ? UA-spec 1.010 1.003-1.0 Final North Grav 35 [facility] L ab (Internal) : [address] ? ? UR ? UA-pH 6.0 [pH] 4.6-8.0 Final North [pH] [facility] L ab (Internal) : [address] [place] ? ? UR ? UA-leuk negative negative Final Nort h Est [facility] L ab (Internal) : [address] [place] ? ? UR ? UA-nitr negative negative Final Nort h ite [facility] L ab (Internal) : [address] [place] ? ? UR ? UA-prot negative negative Final Nort h [facility] L ab (Internal) : [address] ? ? UR ? UA-gluc negative negative Final Nort h [facility] L ab (Internal) : [address] ? ? UR ? UA-keto negative negative Final Nort h ne [facility] L ab (Internal) : [address] ? ? UR ? UA-urob normal normal Final [facility] L ab (Internal) : [address] ? ? UR ? UA-bili negative negative Final Nort h [facility] L ab (Internal) : [address] ? ? UR ? UA-bloo negative negative Final Nort h d [facility] L ab (Internal) : [address] t 03/01/2020 Renal S ? g/r 102 mg/dL 74-106 Final Nor th Function mg/dL [facility], Serum Hosp ital Lab (Internal) : [address] ? ? S High Bun 31 mg/dL 9-20 Final North mg/dL [facility] L ab (Internal) : [address] ? ? S High Crea 1.40 mg/dL 0.66-1.25 Final Nor th mg/dL [facility] L ab (Internal) : [address] t ? ? S ? Ca 9.4 mg/dL 8.4-10.2 Final [facility] mg/dL [facility] (Internal[facility] : [address] ? ? S ? Phos 3.8 mg/dL 2.5-4.5 Final [facility] mg/dL [facility] (Internal) : [address] ? ? S ? Na 137 mmol/L 137-145 Final [facility] mmol/L [facility] (Internal) : [address] ? ? S ? K 4.7 mmol/L 3.5-5.1 Final [facility] mmol/L [facility] (Internal) : [address] ? ? S ? Cl 104 mmol/L 98-107 Final [facility] mmol/L [facility] (Internal) : [address] ? ? S ? Tco2 23.0 22.0-30.0 Final [facility] mmol/L mmol/L [facility] (Internal) : [address] t ? ? S ? Alb 4.0 g/dL 3.5-5.0 Final [facility] g/dL [facility] (Internal) : [address] ? ? S Low GFR 49 >89 Final [facility] (Calc) [facility] (Internal) : [address] 03/01/2020 HbA1C BLD ? Ha1C 5.6 % 4.0-6.0 % Final (Hemoglobin Count ry a1C), Blood Hospi [facility] Lab (Internal) : [address] 03/01/2020 PSA, Serum or S ? PSA, 3.8 NG/mL 0.0-4.0 Fi nal [facility] Plasma Total NG/mL [facility] (Internal) : [address] 03/01/2020 Venipuncture Blood ? Locatio Left ? ? P_nc Primary venous n [facility] Care l [place]l [place] ns: [address], [place] ? ? Blood ? Needle 21g ? ? P_nc Prim merrick venous Vacutainer Care [place]: [address], [place] ? ? Blood ? Number 1 ? ? P_nc Prim merrick venous of Care Attempts [place] rlea ns: [address], [place] ? ? Blood ? Success Yes ? ? P_nc Karla prabhjot venous ful Care [place] ns: [address], [place] ? ? Blood ? Dressin Pressure ? ? P_nc P rimary venous g Band-aid Care Applied [place] nasrin ns: [address], [place] 03/01/2020 Urinalysis, ? Color Yellow ? ? P _nc Primary Dipstick, Care Reflex Micro [place]aya on/Orlea ns: [address], [place] ? ? ? Appeara Clear ? ? P_nc Karla prabhjot nce Care [place]l [place] ns: [address], [place] ? ? ? Glucose Normal ? ? P_nc Karla prabhjot Care [place] ns: [address], [place] ? ? ? Bilirub Negative ? ? P_nc P rimary in Care [place]l [place] ns: [address], [place] ? ? ? Ketones Negative ? ? P_nc P rimary Care [place]l [place] ns: [address], [place] ? ? ? Specifi 1.010 ? ? P_nc Karla prabhjot c Care [place] nasrin ns: [address], [place] ? ? ? Blood Negative ? ? P_nc Karla prabhjot Care [place]l [place] ns: [address], [place] ? ? ? Ph 5.5 ? ? P_nc Prima ry Care [place] ns: [address], [place] ? ? ? Protein Negative ? ? P_nc P rimary Care [place] ns: [address], [place] ? ? ? Urobili 0.2 ? ? P_nc Karla prabhjot nogpricila Care [place]l [place] ns: [address], [place] ? ? ? Nitrite negative ? ? P_nc P rimary Care [place] ns: [address], [place] ? ? ? Leukocy Negative ? ? P_nc P rimary te Care Esterase [place]a ns: [address], [place] 09/11/2019 CBC W/ Auto BLD - Wbc 9.0 5.0-10.0 Final [place] Diff 10*3/uL 10*3/uL [facility] (Internal) : [address] ? ? BLD - Rbc 4.80 4.60-6.00 Final [facility] 10*6/uL 10*6/uL [facility] L [facility] (Internal) : [address] ? ? BLD - Hgb 14.4 g/dL 14.0-18.0 Final Nort h g/dL [facility] L ab (Internal) : [address] ? ? BLD - Hct 43.6 % 41.0-51.0 Final [facility] L ab (Internal) : [address] ? ? BLD - Mcv 90.8 fL 80.0-96.0 Final [facility] L ab (Internal) : [address] ? ? BLD - Mch 30.0 pg 26.0-32.0 Final [facility] pg [facility] L ab (Internal) : [address] ? ? BLD - Mchc 33.0 g/dL 31.0-35.0 Final Nort h g/dL [facility] L ab (Internal) : [address] ? ? BLD - Rdw 12.6 % 11.5-14.5 Final [facility] L ab (Internal) : [address] ? ? BLD - Plt 182 130-450 Final [facility] 10*3/uL 10*3/uL [facility] L ab (Internal) : [address] ? ? BLD - Anc 6.31 ? Final [facility] 10*3/uL [facility] L ab (Internal) : [address] ? ? BLD - Neutro 69.9 % 40.0-75.0 Final [facility] L ab (Internal) : [address] ? ? BLD Low Lymph 19.2 % 20.0-50.0 Final [facility] L ab (Internal) : [address] ? ? BLD - [place] 7.4 % 2.0-10.0 Final [facility] L ab (Internal) : [address] ? ? BLD - Eos 1.7 % 1.0-6.0 % Final [facility] L ab (Internal) : [address] ? ? BLD - Baso 0.8 % 0.0-1.0 % Final [facility] L ab (Internal) : [address] ? ? BLD High Ig 1.0 % 0.0-0.9 % Final [facility] L ab (Internal) : [address] 09/11/2019 BMP, Serum or S High g/r 112 mg/dL 74-106 Fin al [facility] Plasma mg/dL [facility] (Internal[facility] : [address] ? ? S High Bun 29 mg/dL 9-20 Final [facility] mg/dL [facility] (Internal) : [address] ? ? S High Crea 1.40 mg/dL 0.66-1.25 Final Nor th mg/dL [facility] (Internal) : [address] ? ? S - Ca 9.5 mg/dL 8.4-10.2 Final [facility] mg/dL [facility] (Internal) : [address] ? ? S - Na 139 mmol/L 137-145 Final North mmol/L [facility] L ab (Internal) : [address] ? ? S High K 5.6 mmol/L 3.5-5.1 Final [facility] mmol/L [facility] L ab (Internal) : [address] ? ? S - Cl 105 mmol/L 98-107 Final [facility] mmol/L [facility] L ab (Internal) : [address] ? ? S - Tco2 28.0 22.0-30.0 Final [place] mmol/L mmol/L [facility] L ab (Internal) : [address] 09/11/2019 Troponin I, S - Trop <0.06 0.00-0.06 Final [facility] Serum or NG/mL NG/mL [facility] L ab (Internal) : [address] 04/09/2019 CMP, Serum or S High g/r 134 mg/dL 74-106 Fin al [facility] Plasma mg/dL [facility] (Internal) : [address] ? ? S High Bun 30 mg/dL 9-20 Final [facility] mg/dL [facility] (Internal) : [address] ? ? S High Crea 1.30 mg/dL 0.66-1.25 Final Nor th mg/dL [facility] (Internal) : [address] ? ? S - Ca 9.4 mg/dL 8.4-10.2 Final [facility] mg/dL [facility] (Internal) : [address] ? ? S - Na 138 mmol/L 137-145 Final [place] mmol/L [facility] ab (Internal) : [address] ? ? S High K 5.2 mmol/L 3.5-5.1 Final [facility] mmol/L [facility] (Internal) : [address] ? ? S - Cl 107 mmol/L 98-107 Final [facility] mmol/L [facility] ab (Internal) : [address] ? ? S - Tco2 25.0 22.0-30.0 Final [facility] mmol/L mmol/L [facility] (Internal) : [address] ? ? S - Tp 6.8 g/dL 6.3-8.2 Final [facility] g/dL [facility] (Internal) : [address] ? ? S - Alb 4.0 g/dL 3.5-5.0 Final [facility] g/dL [facility] ab (Internal) : [address] ? ? S - Tbil 0.3 mg/dL 0.2-1.3 Final [facility] mg/dL [facility] (Internal) : [address] ? ? S - Alp 89 U/L 38-126 Final [place] U/L [facility] ab (Internal) : [address] ? ? S Low Alt 11 U/L 21-72 U/L Final [facility] (Sgpt) [facility] ab (Internal) : [address] ? ? S - Ast 26 U/L 17-59 U/L Final [facility] (Sgot) [facility] ab (Internal) : [address] 04/09/2019 PSA, Serum or S - PSA, 3.8 NG/mL 0.0-4.0 Fi nal [facility] Plasma Total NG/mL [facility] (Internal) : [address] 04/09/2019 Venipuncture Blood ? Locatio Left ? ? P_nc Primary venous n [facility] Care l [place]l [place]a ns: [address], [place] ? ? Blood ? Needle 21g ? ? P_nc Prim merrick venous Vacutainer Care [place]l [place] ns: [address], [place] ? ? Blood ? Number 2 ? ? P_nc Prim merrick venous of Care Attempts [place] rlea ns: [address], [place] ? ? Blood ? Success Yes ? ? P_nc Karla prabhjot venous ful Care [place]/Orl ea ns: [address] [facility] [address], [place] ? ? Blood ? Dressin Pressure ? ? P_nc P rimary venous g Band-aid Care Applied [place] nasirn ns: [address], [place] ? ? Blood ? Initial ca ? ? P_nc Karla prabhjot venous s Care [place]l ea ns: [address] [facility] [place] 07/13/2018 BMP, Serum or S High g/r 116 mg/dL 74-106 Fin al [facility] Plasma mg/dL [facility] (Internal[facility] : [address] ? ? S High Bun 28 mg/dL 9-20 Final [facility] mg/dL [facility] (Internal) : [address] ? ? S High Crea 1.50 mg/dL 0.66-1.25 Final Nor th mg/dL [facility] : [address] ? ? S - Ca 9.3 mg/dL 8.4-10.2 Final North mg/dL [facility] : [address] ? ? S - Na 137 mmol/L 137-145 Final [place] mmol/L [facility] ([facility]) : [address] ? ? S - K 4.6 mmol/L 3.5-5.1 Final [place] mmol/L [facility] ([facility]) : [address] ? ? S - Cl 104 mmol/L 98-107 Final [place] mmol/L [facility] ([facility]) : [address] ? ? S - Tco2 25.0 22.0-30.0 Final [place] mmol/L mmol/L [facility] ([facility] : [address] 05/07/2018 Urinalysis, ? Color Yellow ? ? P _nc Primary Dipstick, Care Reflex Micro [place] on/[place] ns: [address], [place] ? ? ? Appeara Cloudy ? ? P_nc Karla prabhjot nce Care [place] ns: [address], [place] ? ? ? Glucose Normal ? ? P_nc Karla prabhjot Care [place]: [address], [place] ? ? ? Bilirub Negative ? ? P_nc P rimary in Care [place]: [address], [place] ? ? ? Ketones Negative ? ? P_nc P rimary Care [place]: [address], [place] ? ? ? Specifi 1.020 ? ? P_nc Karla prabhjot c Care [place] ns: [address], [place] ? ? ? Blood Negative ? ? P_nc Karla prabhjot Care [place]: [address], [place] ? ? ? Ph 7.0 ? ? P_nc Prima ry Care [place]: [address], [place] ? ? ? Protein Negative ? ? P_nc P rimary Care [place] ns: [address], [place] ? ? ? Urobili 0.2 ? ? P_nc Karla prabhjot fry Care [place]: [address], [place] ? ? ? Nitrite negative ? ? P_nc P rimary Care [place]: [address], [place] ? ? ? Leukocy Negative ? ? P_nc P rimary te Care Esterase [place] ns: [address], [place] 03/26/2017 CMP, Serum or S ? g/r 97 mg/dL 74-106 Shauna l [place] Plasma mg/dL [facility] ([facility] : [address] ? ? S High Bun 33 mg/dL 9-20 Final [place] mg/dL [facility] (Internal) : [address], [place] ? ? S High Crea 1.30 mg/dL 0.66-1.25 Final Nor th mg/dL [facility] ([facility]) : [address] ? ? S ? Ca 9.0 mg/dL 8.4-10.2 Final [place] mg/dL [facility] ([facility]) : [address] ? ? S ? Na 137 mmol/L 137-145 Final [place] mmol/L [facility] (Internal) : [address] ? ? S ? K 4.7 mmol/L 3.5-5.1 Final [place] mmol/L [facility] ([facility]) : [address] ? ? S High Cl 108 mmol/L 98-107 Final [place] mmol/L [facility] (Internal) : [address] t ? ? S ? Tco2 23.0 22.0-30.0 Final [place] mmol/L mmol/L [facility] ([facility]) : [address] ? ? S ? Tp 6.7 g/dL 6.3-8.2 Final [place] g/dL [facility] ([facility] : [address] ? ? S ? Alb 3.9 g/dL 3.5-5.0 Final [place] g/dL [facility] ([facility]) : [address] ? ? S ? Tbil 0.7 mg/dL 0.2-1.3 Final [place] mg/dL [facility] (Internal) : [address] t ? ? S ? Alp 69 U/L 38-126 Final [place] U/L [facility] (Internal) : [address] t ? ? S ? Alt 26 U/L 21-72 U/L Final [place] (Sgpt) [facility] (Internal) : [address] t ? ? S ? Ast 29 U/L 17-59 U/L Final [place] (Sgot) [facility] (Internal) : [address] t 03/26/2017 PSA, Serum or S ? PSA, 3.4 NG/mL 0.0-4.0 Fi nal [place] Plasma Total NG/mL [facility] ([facility]) : [address] 03/26/2017 Lipid Panel, S ? Chol 146 mg/dL 50-200 Shauna l [place] Serum mg/dL [facility] (Internal) : [address] ? ? S ? Trig 106 mg/dL 10-150 Final [place] mg/dL [facility] (Internal) : [address] ? ? S Low Hdl 31 mg/dL 40-60 Final [place] mg/dL [facility] (Internal) : [address] t ? ? S ? Ldl 94 mg/dL 0-130 Final [place] mg/dL [facility] (Internal) : [address] t ? Venipuncture ? Locatio Right ? ? P_ nc Primary n Antecubita Care l [place] ns: [address], [place] ? ? ? Needle 21g ? ? P_nc Prim merrick Vacutainer Care [place] ns: [address], [place] ? ? ? Number 1 ? ? P_nc Prim merrick of Care Attempts [place] ns: [address], [place] ? ? ? Success Yes ? ? P_nc Karla prabhjot ful Care [place] ns: [address], [place] ? ? ? Dressin Pressure ? ? P_nc P rimary g Band-aid Care Applied [place]: [address], [place] ? ? ? Initial hj ? ? P_nc Karla prabhjot s Care [place] ns: [address], [place] ? Venipuncture ? Locatio Right ? ? P_ nc Primary n Antecubita Care l [place] ns: [address], [place] ? ? ? Needle 21g ? ? P_nc Prim merrick Vacutainer Care [place]: [address], [place] ? ? ? Number 1 ? ? P_nc Prim merrick of Care Attempts [place] ns: [address], [place] ? ? ? Success Yes ? ? P_nc Karla prabhjot ful Care [place] ns: [address], [place] ? ? ? Dressin Pressure ? ? P_nc P rimary g Band-aid Care Applied [place] ns: [address] ? ? ? Initial hj ? ? P_nc Karla prabhjot s Care [place]: [address] Past Encounters 12/06/2021 Dysphagia; Hypertensive Disorder Jamal Padilla, DO: [address] [facility] [place] [address], Ph. 08/30/2021 Hypertensive Disorder; Anxiety; Dysplast ic Nevus of Skin Jamal Paidlla, DO: [address] [facility], [place] [address], Ph. 08/16/2021 Hypertensive Disorder; Cyst of Pancreas Jamal Sonkins, DO: [address] [facility], [place] [address], Ph. 08/14/2021 Jamal Padilla, DO: [address] [facility], [place] [address], Ph. 07/25/2021 Dysplastic Nevus of Skin Jamal Padilla, DO: [address] [facility], [place] [address], Ph. 06/28/2021 Skin Tag Jamal Padilla, DO: [address] [facility], [place] [address], Ph. 06/12/2021 Adult Health Examination; Renal Insuffic iency; Subacute Thyroiditis; Skin Tag; Dysplastic Nevus of Skin Jamal Sonkins, DO: [address] [facility], [place] [address], Ph. 05/15/2021 Hypertensive Disorder; Gastroesophageal Reflux Disease Jamal Sonkins, DO: [address] [facility], [place] [address], Ph. 03/29/2021 Hypertensive Disorder Jamal Sonkins, DO: [address] [facility], [place] [address], Ph. 03/15/2021 Hypertensive Disorder; Mixed Anxiety and Depressive Disorder; Insomnia Jamal Padilla, DO: [address] [facility], [place] [address], Ph. 01/24/2021 Hypertensive Disorder; Insomnia; Anxiety Jamal Pacheco Padilla, DO: [address] [facility], [place] [address], Ph. 01/23/2021 Hypothyroidism Jamal Pacheco Parker, DO: [address] [facility], [place] [address], Ph. 01/09/2021 Hypertensive Disorder; Mixed Anxiety and Depressive Disorder; Paroxysmal Atrial Fibrillation; Insomnia Jamal Padilla, DO: [address] [facility], [place] [address], Ph. 12/14/2020 Hypertensive Disorder Jamal Pacheco Parker, DO: [address] [facility], [place] [address], Ph. 11/14/2020 Hypertensive Disorder; Insomnia; Anxiety Jamal Padilla DO: [address] [facility], [place] [address], Ph. 09/28/2020 Rectal Pain; Increased Frequency of Urin ation; Anxiety Jamal Padilla DO: [address] [facility], [place] [address], Ph. 09/21/2020 Insomnia; Constipation; Increased Freque ncy of Urination; Hematochezia Jamal Padilla, DO: [address] [facility], [place] [address], Ph. 2020 Hypothyroidism; Constipation; Anxiety; C omputed Tomography Result Abnormal Jamal Pacheco Parker, DO: [address] [facility], [place] [address], Ph. 09/07/2020 Hypertensive Disorder; Hypothyroidism; A nxiety Jamal Padilla DO: [address] [facility], [place] [address], Ph. 08/29/2020 Abdominal Bloating; Constipation; Hypoth yroidism; Atrial Fibrillation; Malodorous Urine Jamal Padilla DO: [address] [facility], [place] [address], Ph. Social History Tobacco Smoking Status Never Smoker Vaccine List Vaccine Type COVID-19, mRNA, LNP-S, PF, 100 mcg/0.5 m L dose (Moderna) 11/22/2020 12/20/2020 08/22/2021 influenza, injectable, quadrivalent 08/03/2020 09/28/2021 influenza, seasonal, injectable, preserv ative free 08/31/2015?0.5 mL pneumococcal conjugate PCV 13 10/04/2015?0.5 mL 10/02/2016?0.5 mL pneumococcal polysaccharide PPV23 04/09/2019?0.5 mL Plan of Care Reminders Provider Appointments None ? ? recorded. Lab None ? ? recorded. Referral None ? ? recorded. Procedures None ? ? recorded. Surgeries None ? ? recorded. Imaging None ? ? recorded. Vitals 12/06/2021 01:00PM Acute 20 Height Weight BMI Blood Pressure 170.18 cm 80.29 kg 27.7 kg/m2 132/62 mm[Hg] 08/30/2021 03:40PM Acute 20 Height Weight BMI Blood Pressure 170.18 cm 79.83 kg 27.6 kg/m2 142/86 mm[Hg] 08/16/2021 01:00PM Acute 20 Height Weight BMI Blood Pressure 170.18 cm 79.38 kg 27.4 kg/m2 160/80 mm[Hg] 08/14/2021 03:00PM Nurse 20 Height Blood Pressure 170.18 cm 140/80 mm[Hg] 07/25/2021 03:40PM Procedure 20 Height Weight BMI Blood Pressure 170.18 cm 78.47 kg 27.1 kg/m2 170/80 mm[Hg] 06/28/2021 03:40PM Acute 20 Height Weight BMI Blood Pressure 170.18 cm 79.33 kg 27.4 kg/m2 130/80 mm[Hg] 06/12/2021 02:00PM CPE 20 Height Weight BMI Blood Pressure 170.18 cm 78.93 kg 27.3 kg/m2 110/64 mm[Hg] 05/15/2021 10:20AM Follow Up 20 Height Weight BMI Blood Pressure 170.18 cm 78.02 kg 26.9 kg/m2 130/74 mm[Hg] 03/29/2021 08:40AM Follow Up 20 Height Weight BMI Blood Pressure 170.18 cm 73.48 kg 25.4 kg/m2 132/74 mm[Hg] 03/15/2021 10:00AM Follow Up 20 Height Weight BMI Blood Pressure 170.18 cm 73.94 kg 25.5 kg/m2 120/66 mm[Hg] 01/24/2021 08:40AM Follow Up 20 Height Weight BMI Blood Pressure 170.18 cm 74.84 kg 25.8 kg/m2 152/70 mm[Hg] 01/09/2021 09:20AM Acute 20 Height Weight BMI Blood Pressure 170.18 cm 73.94 kg 25.5 kg/m2 144/74 mm[Hg] 12/14/2020 03:00PM Nurse 20 Height Blood Pressure 170.18 cm 148/76 mm[Hg] 11/14/2020 10:40AM Follow Up 20 Height Weight BMI Blood Pressure 170.18 cm 74.84 kg 25.8 kg/m2 142/88 mm[Hg] 09/28/2020 01:40PM Follow Up 20 Height Weight BMI Blood Pressure 170.18 cm 74.39 kg 25.7 kg/m2 130/64 mm[Hg] 09/21/2020 01:00PM Acute 20 Height Weight BMI Blood Pressure 170.18 cm 75.75 kg 26.2 kg/m2 128/58 mm[Hg] 2020 10:40AM Acute 20 Height Weight BMI Blood Pressure 170.18 cm 77.56 kg 26.8 kg/m2 128/64 mm[Hg] 09/07/2020 03:00PM Follow Up 20 Height Weight BMI Blood Pressure 170.18 cm 73.03 kg 25.2 kg/m2 149/72 mm[Hg] 08/29/2020 01:00PM Acute 20 Height Weight BMI Blood Pressure 170.18 cm 76.2 kg 26.3 kg/m2 126/60 mm[Hg] 06/08/2020 02:00PM AWV 20 Height Weight BMI Blood Pressure 170.18 cm 74.84 kg 25.8 kg/m2 128/70 mm[Hg] 05/23/2020 02:20PM Follow Up 20 Height Weight BMI Blood Pressure 170.18 cm 74.84 kg 25.8 kg/m2 128/58 mm[Hg] 05/22/2020 11:20AM Consult 40 Height Weight BMI Blood Pressure 170.18 cm 74 kg 25.6 kg/m2 159/72 mm[Hg] 05/05/2020 02:00PM Follow Up 20 Height Weight BMI Blood Pressure 170.18 cm 73.03 kg 25.2 kg/m2 120/68 mm[Hg] 04/19/2020 03:00PM Follow Up 20 Height Weight BMI Blood Pressure 170.18 cm 73.48 kg 25.4 kg/m2 128/74 mm[Hg] 03/10/2020 09:40AM Follow Up 20 Height Weight BMI Blood Pressure 170.18 cm 72.57 kg 25.1 kg/m2 112/62 mm[Hg] 03/01/2020 10:20AM Acute 20 Height Weight BMI Blood Pressure 170.18 cm 73.48 kg 25.4 kg/m2 128/74 mm[Hg] 09/09/2019 09:40AM Acute 20 Height Weight BMI Blood Pressure 170.18 cm 73.17 kg 25.3 kg/m2 (1) 140/58 mm[H g] (2) 138/52 mm[Hg ] (3) 122/50 mm[Hg ] 07/19/2019 01:20PM Acute 20 Height Weight BMI Blood Pressure 170.18 cm 74.39 kg 25.7 kg/m2 120/64 mm[Hg] 04/09/2019 02:00PM CPE 20 Height Weight BMI Blood Pressure 170.18 cm 74.84 kg 25.8 kg/m2 122/64 mm[Hg] 02/26/2019 10:00AM Acute 20 Height Weight BMI Blood Pressure 170.18 cm 73.94 kg 25.5 kg/m2 130/80 mm[Hg] 02/03/2019 10:00AM Acute 20 Height Weight BMI Blood Pressure 170.18 cm 75.75 kg 26.2 kg/m2 128/74 mm[Hg] 07/09/2018 09:20AM Follow Up 20 Height Weight BMI Blood Pressure 170.18 cm 75.75 kg 26.2 kg/m2 114/64 mm[Hg] 06/24/2018 09:40AM Acute 20 Height Weight BMI Blood Pressure 170.18 cm 75.3 kg 26 kg/m2 120/76 mm[Hg] 05/14/2018 10:40AM Follow Up 20 Height Weight BMI Blood Pressure 170.18 cm 76.2 kg 26.3 kg/m2 120/78 mm[Hg] 08/27/2017 Weight Blood Pressure 61.23 kg 120/60 mm[Hg] 08/15/2017 Weight Blood Pressure 76.2 kg 124/68 mm[Hg] 05/08/2017 Height Weight Blood Pressure 170.18 cm 76.66 kg 130/64 mm[Hg] 10/02/2016 Weight Blood Pressure 78.93 kg (1) 142/78 mm[Hg] (2) 152/84 mm[Hg] 04/17/2016 Weight Blood Pressure 78.93 kg 132/78 mm[Hg] 02/06/2016 Height Weight Blood Pressure 170.18 cm 82.1 kg (1) 140/80 mm[Hg] (2) 144/92 mm[Hg] 06/27/2015 Height Weight Blood Pressure 170.18 cm 77.11 kg 118/82 mm[Hg] 06/07/2015 Height Weight Blood Pressure 170.18 cm 78.47 kg 140/70 mm[Hg]
[2022-01-15 17:23] LABS: Abs Immature Grans 0.11 10^3/uL (0.0-0.06); Absolute Basophil Count 0.08 10^3/uL (0.0-0.2); Absolute Eosinophil Count 0.17 10^3/uL (0.0-0.7); Absolute Monocyte Count 0.84 10^3/uL (0.1-0.8); Basophils % 0.6; Eosinophils % 1.2; HCT 44.1 % (40.0-50.0); HGB 15.1 g/dL (13.5-17.5); Immature Grans % 0.8; Lymphocytes % 14.7; MCH 31.6 pg (27.0-33.0); MCHC 34.2 % (32.0-36.0); MCV 92.3 fL (80-95); MPV 10.8 fL (8.0-11.0); Monocytes % 6.1; Neutrophils % 76.6; Nucleated RBC 0 %; Platelet Count 228 10^3/uL (130-400); RBC 4.78 10^6/uL (4.36-5.78); RDW 12.3 % (11.8-14.1); RDW-SD 41.8 fL; WBC 13.85 10^3/uL (4.4-10.8)
[2022-01-15 17:25] LABS: Absolute Lymphocyte Count 2.04 10^3/uL (1.2-3.4)
[2022-01-15 17:26] LABS: Absolute Neutrophil Count 10.61 10^3/uL (1.2-6.7)
[2022-01-15] MEDS: MORPHine 10 MG/ML VIAL 2 MG IVP (17:32)
[2022-01-15] MEDS: Normal Saline 1,000 ML 125 ML IV (17:32)
--- NOTE | 2022-01-15 17:42 | W.ED.GENAD ---
Discharge Plan Disposition Patient Disposition: [facility] INPATIENT Condition: Stable Discharge Details Clinical Impression: Non-ST elevation RI (NSTEMI) Admit Date/Time: 01/15/22 22:41 Admit Provider: Isidro Kelly Attending Provider: Isidro Kelly Primary Care Provider: Calixto Canales ED Provider: Tyrell Alexis Discharge Data Discharge Date/Time-TO BE ENTERED AT DEPARTURE: 01/15/22 23:50 Medical Decision Making Patient presenting to the emergency department with chief complaint of pain between his shoulder blades. He states that this started yesterday evening after sitting down and having some dinner. Patient denies any excessive activity, strenuous work, or anything he could think of that would exacerbate these pain symptoms. Patient does state some shortness of breath with activity that he noticed today otherwise review of systems is unremarkable. Physical exam is unremarkable as well with no acute findings noted and no reproducible pain. I am concerned for possible cardiac etiology along with potential aortic dissection. We will plan on performing labs EKG and after review of labs ordering CTA for further evaluation. Will give maintenance fluids and morphine pending results. Please see attending physician's full interpretation of EKG results but there are some lateral ST depressions noted but no acute signs of STEMI. We will continue to monitor Reviewed labs that show a mildly elevated white count, elevated BUN and creatinine with GFR of 44, troponin of 176. Reviewed virtual radiologist report that shows dilated superior aspect of the thoracic aorta measuring 4 cm. 1899-called and spoke with [facility] in regards to patient's EKG findings along with dilated aorta and patient's discomfort. Pending hearing back from manager country in regards to patient care. 1954-spoke with [facility] manager country and he recommended right-sided EKG, starting heparin bolus, high-dose statin, and to call back with second troponin. 2039-spoke with [facility] Dr. Lynne who stated that at this time they do not feel like patient needed to go emergently to the [facility] but gave excepting for admission tomorrow to cardiac bed and further cardiac work-up. Accepting physician Dr. Roach with [facility]. They did request repeat CTA chest for further evaluation and concern for aortic dissection. I do feel this is reasonable and test was ordered. Patient is otherwise in stable condition. Still pending repeat troponin. 2229-updated [facility] on repeat chest CTA that shows no acute finding and no dissection. Patient remains pain-free and last blood pressure noted was 124/64 with heart rate of 57. 2245-spoke to Dr. Norton for admission of patient to ICU pending bed availability at [facility] with accepting physician Dr. Roach. ER admission orders were placed and patient remained stable throughout emergency department stay with no new or worsening symptoms. Imaging Data Radiologic Study: Imaging: CT Scan Radiologist's impression: CTA Chest IMPRESSION: 1. No acute findings in the thorax. 2. 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 3. Other chronic findings, as above. CTA abd/pelvis IMPRESSION: 1. No acute intra-abdominal findings. 2. Approximately 1.3 cm hyperdense lesion in the right aspect of the prostate gland. Recommend nonemergent urology consultation. 3. Large bilateral scrotal hydroceles. 4. Other chronic findings, as above. HPI General Mode of arrival: ambulatory. Date/Time Provider Initiated Documentation: 01/15/22 17:03. Limitations to Documentation: no limitations. Information obtained by: patient. History of Present Illness 81 year old M presents to the emergency department with the chief complaint of pain between shoulder blades, described as moderate, with intensity rated at 5. Quality is described as aching and sharp, and is localized to the back. Patient reports no radiation. Patient started experiencing this day(s) (1) and it has been constant. improves with No relieving factors improve symptom(s), No exacerbating factors reported . Patient notes shortness of breath. Patient did receive the following treatments prior to arrival, none Related Data Home Medications Medication Instructions Recorded Confirmed nitroglycerin 0.4 mg sublingual 0.4 mg SUBLINGUAL Q5M PRN 09/29/20 01/15/22 tablet (Nitrostat) polyethylene glycol 3350 17 gram 17 g PO DAILY 10/03/20 01/15/22 oral powder packet (Miralax) amlodipine 5 mg tablet 5 mg PO DAILY 10/09/21 01/15/22 apixaban 2.5 mg tablet (Eliquis) 2.5 mg PO BID tab 10/09/21 01/15/22 losartan 50 mg tablet 75 mg PO DAILY tab 10/09/21 01/15/22 zolpidem 5 mg tablet 5 mg PO QHS PRN 10/09/21 01/15/22 IV Access 1 ea IV DIRECTED #0 01/16/22 aspirin 81 mg chewable tablet 81 mg PO DAILY #0 tab 01/16/22 clopidogrel 75 mg tablet 75 mg PO DAILY #0 tab 01/16/22 heparin (porcine) 25,000 unit/250 25,000 units (250 mL) IV INFUSION 01/16/22 mL in 0.45 % sodium chloride IV #0 ml soln metoprolol tartrate 25 mg tablet 25 mg PO Q8H #0 tab 01/16/22 pantoprazole 20 mg tablet,delayed 20 mg PO DAILY@0730 #0 tab 01/16/22 release (Protonix) Previous Rx's Medication Instructions Recorded IV Access 1 ea IV DIRECTED #0 01/16/22 aspirin 81 mg chewable tablet 81 mg PO DAILY #0 tab 01/16/22 clopidogrel 75 mg tablet 75 mg PO DAILY #0 tab 01/16/22 heparin (porcine) 25,000 unit/250 25,000 units (250 mL) IV INFUSION 01/16/22 mL in 0.45 % sodium chloride IV #0 ml soln metoprolol tartrate 25 mg tablet 25 mg PO Q8H #0 tab 01/16/22 pantoprazole 20 mg tablet,delayed 20 mg PO DAILY@0730 #0 tab 01/16/22 release (Protonix) Allergies Allergy/AdvReac Type Severity Reaction Status Date / Time fexofenadine [From Jeanette] Allergy Unknown Unverified 01/15/22 17:01 General Stated Complaint: GenMedical ROSINA: 2 Review of Systems Constitutional Constitutional: Denies chills, Denies fever(s) and Denies malaise Cardiovascular Cardiovascular: Reports as per HPI, Denies chest pain, Denies chest pain with activity, Denies syncope, Denies irregular heart rhythm, Denies palpitations and Denies dyspnea Respiratory Respiratory: Denies cough, Denies hemoptysis and Denies dyspnea Gastrointestinal Gastrointestinal: Denies abdominal pain, Denies nausea and Denies vomiting Musculoskeletal Musculoskeletal: Reports as per HPI Neurologic Neurologic: Denies syncope Psychiatric Psychiatric: Denies anxiety Endocrine Endocrine: Denies cold intolerance, Denies heat intolerance and Denies palpitations PFSH All Active Problems (Updated 01/17/22 @ 00:05 by TERRI PLATT) DVT prophylaxis (Acute) Hypertension (Chronic) Aortic dilatation (Acute) Chronic kidney disease, stage 3 (Acute) Non-ST elevation RI (NSTEMI) (Acute) Spermatocele (Acute) Renal cyst (Acute) Gassiness (Acute) Hernia of abdominal cavity (Acute) RLQ abdominal pain (Acute) Medical History Atrial fibrillation Constipation Kidney disease Spermatocele Surgical History H/O colonoscopy 05/04/13. Negative exam. 2001. Negative exam. History of esophagogastroduodenoscopy (EGD) 05/04/2013. gastritis, hiatal hernia. History of hernia repair Social History Smoking/Tobacco Use Status: Never Smoking risk assessment performed?: Yes Alcohol Intake: current Alcohol Intake frequency: holidays/special occasions only Drug use: Never Substance use type: does not use Current gender identity: male Do you feel safe at home: Yes Do you feel safe in your relationship?: Yes Additional Social history: Lives alone on [address] in [place]. 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 Recently had to put into fdc, [facility], due to progressive Parkinsons after caring for her for years. Son and family in [place]. Exam Const General: cooperative, healthy appearing, comfortable, no acute distress, not diaphoretic and not ill appearing Nutritional Appearance: average body habitus Orientation: alert, awake and oriented x3 Limitations: mental status not altered Neck Neck: normal visual inspection, full ROM, trachea midline, supple and no anterior neck swelling Thyroid: thyroid normal Carotids: normal carotid upstroke and no bruits Chest Chest: normal inspection of the chest Resp Effort & Inspection: normal respiratory effort and able to speak in complete sentences Auscultation: clear to auscultation bilaterally Cardio Jugular venous pressure: no JVD Palpation: normal PMI Rate: regular rate Rhythm: regular rhythm Heart Sounds: S1 normal, S2 normal, no click, no gallops, no murmurs and no rubs Bruits: no abdominal aortic bruits and no carotid bruits Pulses: radial pulses present bilaterally 2+ GI Inspection: normal to inspection Palpation: soft, no aortic enlargement, no pulsatile masses and nontender Auscultation: normal bowel sounds Skin General skin exam: no rashes or lesions noted Neuro General: patient alert, patient awake, patient oriented x3, tone normal and moves all extremities Course Vital Signs Vital signs: Vital Signs Temperature 36.8 C 01/15/22 16:56 Pulse 65 01/15/22 16:56 Respiratory Rate 18 01/15/22 16:56 Blood Pressure 160/75 H 01/15/22 16:56 Pulse Oximetry 95 01/15/22 16:56 Temperature 36.8 C 01/15/22 16:56 Temperature Source Skin 01/15/22 16:56 Pulse 63 01/15/22 17:04 Pulse 63 01/15/22 17:05 Respiratory Rate 19 01/15/22 17:10 Respiratory Effort Non-Labored 01/15/22 17:10 Respiratory Depth Normal 01/15/22 17:10 Respiratory Pattern Normal 01/15/22 17:10 Blood Pressure 160/75 H 01/15/22 17:04 Blood Pressure Mean 96 01/15/22 17:04 Blood Pressure Position Supine 01/15/22 16:56 Pulse Oximetry 97 01/15/22 17:05 Oxygen Delivery Method Room Air 01/15/22 16:56 Oxygen Flow Rate 0 01/15/22 16:56 Pain Level 6 01/15/22 17:32 Lab/Test Results Lab/Test Results: Laboratory Tests Range/Units 01/15/22 17:00 WBC (4.4-10.8) 10^3/uL 13.85 H RBC (4.36-5.78) 10^6/uL 4.78 Hgb (13.5-17.5) g/dL 15.1 Hct (40.0-50.0) % 44.1 MCV (80-95) fL 92.3 MCH (27.0-33.0) pg 31.6 MCHC (32.0-36.0) % 34.2 RDW (11.8-14.1) % 12.3 Plt Count (130-400) 10^3/uL 228 MPV (8.0-11.0) fL 10.8 Immature Gran % 0.8 Neutrophils % 76.6 Lymphocytes % 14.7 Monocytes % 6.1 Eosinophils % 1.2 Basophils % 0.6 Nucleated RBC % % 0 Absolute Neutrophils (1.2-6.7) 10^3/uL 10.61 H Absolute Lymphocytes (1.2-3.4) 10^3/uL 2.04 Absolute Monocytes (0.1-0.8) 10^3/uL 0.84 H Absolute Eosinophils (0.0-0.7) 10^3/uL 0.17 Absolute Basophils (0.0-0.2) 10^3/uL 0.08
--- NOTE | 2022-01-15 17:45 | RT.EKG_ITS ---
APPROVED REPORT Exam: Resting ECG Reason for Exam: elevated trop Patient Location: E HR:65 bpm ECG Measurements Heart Rate 65 AXIS AR 167 P 60 QRSd 91 QRS 3 QT 401 T 137 QTc 418 Conclusion Sinus rhythm...normal P axis, V-rate 60- 99 Repol abnrm suggests ischemia, diffuse leads...ST-T neg, ant/lat/inf. Sinus. 1mm ST depression in I and aVL, V5-6. 2mm ST depression in V3-4. 1mm ST elevation in III amd a VR. No STEMI. I have reviewed and interpreted ECG and agree with software generated interpretation.
--- NOTE | 2022-01-15 17:45 | DI.CT_ITS ---
Exam(s) CT THORAX ABD/PEL CTA EXAM: CT THORAX ABD/PEL CTA TECHNIQUE: CT angiography of the chest, abdomen and pelvis was performed with bolus infusion of 80 c c of Omnipaque 350. Axial CT angiography was performed with multi-slice acquisition and multi-planar and/or 3D reconstruc tions. COMPARISON: CT CT ABDOMEN WO/W from 09/04/[address] THORAX CTA from 01/15/2022 FINDINGS: The lungs are clear. No pleural effusion. No evidence of pulmonary embolic disease. No thoracic aort ic dissection or aneurysm. Ectasia of descending thoracic aorta at 40 millimeters. Major branches o f the thoracic aorta appear normal. No pleural effusion. No mediastinal or hilar adenopathy. Tracheo bronchial tree appears intact. No focal hepatic or renal abnormality seen. Gallbladder and bile ducts are CT normal. Pancreas is unr emarkable. Spleen is unremarkable. No abdominal aortic aneurysm or dissection. Moderate to severe atheromatous changes noted. Major br anches of the abdominal aorta appear grossly patent with no evidence of occlusion or significant sten osis.. No abdominal or pelvic adenopathy. Normal appendix. No significant abdominal wall hernia. No focal bowel pathology. IMPRESSION: No evidence of acute vascular abnormality of the chest, abdomen or pelvis. Ectasia of descending tho racic aorta noted at 40 millimeters. No other abnormalities are seen. RADIATION DOSE DELIVERED: 1,129.49mGy.cm Total DLP 1,129.49mGy.cm Total DLP !Error CTDIvol DATA REPOSITORY: All CT scans at this facility are submitted to the National Radiology Data Registry (NRDR) Dose Index Registry (DIR) with the [employer] (ACR). RADIATION OPTIMIZATION: All CT scans at this facility use at least one of these dose optimization te chniques: automated exposure control; mA and/or kV adjustment per patient size (includes targeted exa ms where dose is matched to clinical indication); or iterative reconstruction.
[2022-01-15 17:53] LABS: ALT 31 U/L (16-63); AST 25 U/L (15-37); Albumin 4.2 g/dL (3.4-5.0); Alkaline Phosphatase 94 U/L (46-116); Anion Gap 8.3 mmol/L (3-11); BUN 29 mg/dL (7-18); Bilirubin, Total 0.4 mg/dL (0.2-1.0); CO2 23.7 mmol/L (21.0-32.0); CREATININE 1.5 mg/dL (0.70-1.30); Chloride 107 mmol/L (98-107); Estimated GFR 44.69 (mL/min/1.73m2); Glucose 117 mg/dL (74-106); Magnesium 2.3 mg/dL (1.8-2.4); Potassium 4.6 mmol/L (3.5-5.1); Sodium 139 mmol/L (136-145); Total Protein 7.6 g/dL (6.4-8.2)
[2022-01-15 17:56] LABS: Troponin I 176 ng/L (<or=60)
[2022-01-15] MEDS: Omnipaque 350 MG/ML 100 ML BTL IJ ×2 (18:18→21:04)
[2022-01-15] MEDS: MORPHine 4 MG/ML SYR IVP (18:41)
[2022-01-15 18:42] LABS: Source Nasal/Nares
--- NOTE | 2022-01-15 18:52 | DI.VRAD_ITS ---
PROCEDURE INFORMATION: Exam: CTA Chest With Contrast Exam date and time: 01/15/2022 6:10 PM Age: 81 years old Clinical indication: Other: Back pain with elevated troponin; Prior surgery; Surgery date: 6+ months; Surgery type: Hernia TECHNIQUE: Imaging protocol: Computed tomographic angiography of the chest with contrast. 3D rendering (Not supervised by radiologist): MIP and/or 3D reconstructed images were created by the technologist. Contrast material: ONMIPQUE 350; Contrast volume: 100 ml; Contrast route: INTRAVENOUS (IV); COMPARISON: 1. CT ABDOMEN WO/W 09/04/2021 8:[address] ABDOMEN PELVIS W 08/08/2020 2:29 PM FINDINGS: Pulmonary arteries: Unremarkable. No filling defects Aorta: Dilatation of the superior most aspect of the descending thoracic aorta measuring up to 4 cm in diameter. Mild atherosclerotic plaques of the thoracic aorta. No dissection. Lungs: Mild bibasilar dependent atelectasis of the lower lobes. Pleural spaces: Unremarkable. No pneumothorax. No pleural effusion. Heart: Unremarkable. No pericardial effusion. Lymph nodes: No enlarged lymph nodes. Bones/joints: Multilevel degenerative changes of the visualized spine. No acute fracture. Soft tissues: Unremarkable. IMPRESSION: 1. No acute findings in the thorax. 2. 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 3. Other chronic findings, as above. PROCEDURE INFORMATION: Exam: CTA Abdomen and Pelvis With Contrast Exam date and time: 01/15/2022 6:10 PM Age: 81 years old Clinical indication: Other: Back pain with elevated troponin; Prior surgery; Surgery date: 6+ months; Surgery type: Hernia TECHNIQUE: Imaging protocol: Computed tomographic angiography of the abdomen and pelvis with contrast material. 3D rendering (Not supervised by radiologist): MIP and/or 3D reconstructed images were created by the technologist. Contrast material: OMNIPAQUE 350; Contrast volume: 100 ml; Contrast route: INTRAVENOUS (IV); COMPARISON: 1. CT ABDOMEN WO/W 09/04/2021 8:[address] ABDOMEN PELVIS W 08/08/2020 2:29 PM FINDINGS: Aorta: Moderate atherosclerotic plaques of the aorta. No dissection or aneurysm. Celiac trunk and mesenteric arteries: No occlusion or significant stenosis. Renal arteries: No occlusion or significant stenosis. Right iliac arteries: No occlusion or significant stenosis. Left iliac arteries: No occlusion or significant stenosis. Liver: No mass. Gallbladder and bile ducts: Unremarkable. No calcified stones. No ductal dilation. Pancreas: Unremarkable. No mass. No ductal dilation. Spleen: Unremarkable. No splenomegaly. Adrenal glands: Stable 1.5 cm isodense nodule in the left adrenal gland, favoring benign etiology. Kidneys and ureters: Fluid density cysts in both kidneys. No hydronephrosis or stones. Stomach and bowel: Unremarkable. No obstruction. No mucosal thickening. Appendix: No evidence of appendicitis. Intraperitoneal space: Unremarkable. No free air. No significant fluid collection. Lymph nodes: Unremarkable. No enlarged lymph nodes. Urinary bladder: Unremarkable. No mass. Reproductive: Large bilateral scrotal hydroceles. Approximately 1.3 cm hyperdense lesion in the right aspect of the prostate gland. Prostate gland calcifications. Bones/joints: Multilevel degenerative changes of the visualized spine. No acute fracture. Soft tissues: Unremarkable. IMPRESSION: 1. No acute intra-abdominal findings. 2. Approximately 1.3 cm hyperdense lesion in the right aspect of the prostate gland. Recommend nonemergent urology consultation. 3. Large bilateral scrotal hydroceles. 4. Other chronic findings, as above. Dictated and Authenticated by: Adria Tuttle MD. Ordering:KKOI Santillan MD
--- NOTE | 2022-01-15 19:30 | RT.EKG_ITS ---
APPROVED REPORT Exam: Resting ECG Reason for Exam: elevated trop Patient Location: E HR:62 bpm ECG Measurements Heart Rate 62 AXIS MI 170 P 30 QRSd 89 QRS -6 QT 410 T 80 QTc 418 Conclusion Incomplete analysis due to missing data in precordial lead(s) Sinus rhythm...normal P axis, V-rate 60- 99 Anterolateral infarct, age indeterminate...Q >35mS, flat/neg T, V3-V6,I,aVL right sided ekg minimal st elevation in v4-v5 compared to prior ekg
[2022-01-15 19:34] LABS: COVID-19 PCR Negative (Negative)
[2022-01-15] MEDS: Atorvastatin 40 MG TAB 80 MG PO (20:26)
--- NOTE | 2022-01-15 20:30 | DI.CT_ITS ---
Exam(s) CT THORAX CTA EXAM: CT THORAX CTA CLINICAL HISTORY: Concern for aortic dissection. TECHNIQUE: Imaging Protocol: Axial CT angiography was performed with multi-slice acquisition and mu lti-planar and/or 3D reconstructions. CONTRAST MATERIAL: Intravenous: Omnipaque 350 Contrast volume:structured data in ml COMPARISON: CT CT THORAX ABD/PEL CTA from 01/15/2022 FINDINGS: CT angiography of the chest was performed with intravenous infusion of 100 cc of Omnipaque 350. The lungs are clear. No pleural effusion. Tracheobronchial tree appears intact. No evidence of pulmonary embolic disease. There is ectasia of the descending thoracic aorta at 40 mi llimeters, no thoracic aortic aneurysm or dissection, major branch vessels appear intact. No mediastinal or hilar adenopathy. Images obtained through the upper abdomen show unremarkable appearance of the visualized portions of the liver, spleen, pancreas, adrenals, and kidneys. IMPRESSION: Negative CT angiogram of the chest. No evidence of pulmonary embolic disease. Ectasia of descending aorta at 40 millimeters. No change from prior CT angiogram obtained 3 hours earlier. RADIATION DOSE DELIVERED: 570.58mGy.cm Total DLP 570.58mGy.cm Total DLP !Error CTDIvol DATA REPOSITORY: All CT scans at this facility are submitted to the National Radiology Data Registry (NRDR) Dose Index Registry (DIR) with the [employer] (ACR). RADIATION OPTIMIZATION: All CT scans at this facility use at least one of these dose optimization te chniques: automated exposure control; mA and/or kV adjustment per patient size (includes targeted exa ms where dose is matched to clinical indication); or iterative reconstruction.
[2022-01-15 20:53] LABS: Troponin I 443 ng/L (<or=60)
[2022-01-15] MEDS: Normal Saline Flush 10 ML SYR IVP (21:05)
--- NOTE | 2022-01-15 21:34 | DI.VRAD_ITS ---
PROCEDURE INFORMATION: Exam: CTA Chest With Contrast Exam date and time: 01/15/2022 9:03 PM Age: 81 years old Clinical indication: Other: Concern for aortic dissection TECHNIQUE: Imaging protocol: Computed tomographic angiography of the chest with contrast. 3D rendering (Not supervised by radiologist): MIP and/or 3D reconstructed images were created by the technologist. Radiation optimization: All CT scans at this facility use at least one of these dose optimization techniques: automated exposure control; mA and/or kV adjustment per patient size (includes targeted exams where dose is matched to clinical indication); or iterative reconstruction. Contrast material: OMNIPAQUE 350; Contrast volume: 80 ml; Contrast route: INTRAVENOUS (IV); COMPARISON: CT THORAX ABD/PEL CTA 01/15/2022 6:10 PM FINDINGS: Pulmonary arteries: Unremarkable. Aorta: Redemonstration of dilatation of the superior most aspect of the ascending thoracic aorta measuring up to 4 cm in diameter. Mild atherosclerotic plaques of the thoracic aorta. No dissection. Great vessels off aortic arch: Focal ectasia of the proximal right subclavian artery measuring up to 1.3 cm in diameter. Lungs: Mild bibasilar dependent atelectasis of the lower lobes. Pleural spaces: No pneumothorax. No pleural effusion. Heart: Unremarkable. No pericardial effusion. Lymph nodes: No enlarged lymph nodes. Bones/joints: Multilevel degenerative changes of the visualized spine. No acute fracture. Soft tissues: Unremarkable. IMPRESSION: No acute findings. No change from prior examination performed 3 hours earlier on same date. Please refer to prior CT abdomen pelvis for findings in the abdomen and pelvis. Dictated and Authenticated by: Adria Tuttle MD. Ordering:KOKI Santillan MD
--- NOTE | 2022-01-15 23:23 | HPE_ITS ---
Date of service: 01/15/22 Time of Service: 23:24 Assessment and Plan Assessment and plan (1) Non-ST elevation NH (NSTEMI): Status: Acute Assessment and plan: I agree with assesment of ED clinician and consulting lead project manager at [facility] of NSTEMI. He was not on anti-platelet therapy so loading chewable ASA and clopidogrel dose ordered. Holding apixaban and treating with heparin drip in anticipation of transfer to [facility] tomorrow for possible cardiac catheterization. We have also initiated high intensity statin and beta dom therapy, see below. The pain has now resolved and he is resting comfortably. (2) Aortic dilatation: Status: Acute Assessment and plan: Initial concern for evolving dissection, but no evidence of this on repeat CTA of the chest while in the ED. (3) Chronic kidney disease, stage 3: Status: Acute Assessment and plan: Looking back his creatinine is at his baseline of around 1.5 going back to 2020. He is on ARB therapy. Monitor renal funciton after contrast studies in ED. (4) Hypertension: Status: Chronic Assessment and plan: Blood pressure reasonably controlled, stable. Will continue outpatient medication, with exception of substituting metoprolol for diltiazem therapy given NH. Titrate to beta block as blood pressure allows. (5) DVT prophylaxis: Status: Acute Assessment and plan: he is on full dose heparin. Continuing PPI as well given some GI bleed risk, pantoprazole as he is on clopidogrel (6) Discharge planning issues: Status: Acute Assessment and plan: Per ED clinician Walter Rojas patient aceepted for transfer tomorrow at [facility] cardiology. NPO at midnight in prepration for possible cardiac cath. History of Present Illness History of Present Illness Chief Complaint: chest pain Narrative: 81 yo M with history of HTN, paroxysmal atrial fibrillation, and CKD 3 on low dose apixaban presenting with pain in the upper back between the shoulder blades that started at around 6pm the day prior to admission (FridayJanuary 14). Started after dinner. He felt a little SOB when he walked outside in cold air, but mildly. Sharp pain, no radiation. No chest pain/tightness, palpitations, nausea, diaphoresis, or lightheadedness. Pain was not severe, he went to sleep. He still had the pain the next day, called his PCP and triage nurse got back to him, recommended ED. Pain improved in the ED after given morphine, has now resolved. He had had similar pain in the past, but it had gone away on its own. No recent medication changes, takes his medication regularly. He states he hasn't had atrial fibrillation in a year, he knows when he goes into it. Review of Systems Constitutional Constitutional: Denies anorexia, Denies chills, Denies fever(s) and Denies weakness Eyes Eyes: Denies change in vision and Denies irritation ENT Ears, Nose, Mouth, and Throat: Denies dizziness, Denies nasal congestion, Denies nasal discharge and Denies sore throat Cardiovascular Cardiovascular: Denies syncope, Denies palpitations and Denies orthopnea Respiratory Respiratory: Denies cough, Denies excessive phlegm production and Denies wheezing Gastrointestinal Gastrointestinal: Denies abdominal pain, Reports constipation, Denies heartburn, Denies diarrhea and Denies vomiting Genitourinary Genitourinary: Denies hematuria, Denies dysuria and Denies urinary incontinence Integumentary/Breasts Skin/Breast: Denies rash and Denies skin ulcer Neurologic Neurologic: Denies dizziness, Denies syncope, Denies sensory deficit and Denies weakness Psychiatric Psychiatric: Denies mood swings and Denies panic attacks Endocrine Endocrine: Denies palpitations Hematologic/Lymphatic Hematologic/Lymphatic: Denies easy bleeding Allergic/Immunologic Allergic/Immunologic: Denies wheezing PFSH All Active Problems Discharge planning issues (Acute) DVT prophylaxis (Acute) Hypertension (Chronic) Aortic dilatation (Acute) Chronic kidney disease, stage 3 (Acute) Non-ST elevation NH (NSTEMI) (Acute) Spermatocele (Acute) Renal cyst (Acute) Gassiness (Acute) Hernia of abdominal cavity (Acute) RLQ abdominal pain (Acute) Medical History Atrial fibrillation Constipation Kidney disease Spermatocele Surgical History H/O colonoscopy 05/04/13. Negative exam. 2001. Negative exam. History of esophagogastroduodenoscopy (EGD) 05/04/2013. gastritis, hiatal hernia. History of hernia repair Social History (Updated 01/16/22 @ 00:26 by Isidro Kelly) Smoking/Tobacco Use Status: Never Smoking risk assessment performed?: Yes Alcohol Intake: current Alcohol Intake frequency: holidays/special occasions on ly Drug use: Never Substance use type: does not use Current gender identity: male Do you feel safe at home: Yes Do you feel safe in your relationship?: Yes Additional Social history: Lives alone [address] in [place]. 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 Recently had to put into longterm, [facility], due to pr ogressive Parkinsons after caring for her for years. Son and family in [place]. Meds Allergies and Home Medications Allergies Allergy/AdvReac Type Severity Reaction Status Date / Time fexofenadine [From Jeanette] Allergy Unknown Unverified 01/15/22 17:01 Home Medications Medication Instructions Recorded Confirmed Type nitroglycerin 0.4 mg sublingual 0.4 mg SUBLINGUAL Q5M PRN 09/29/20 01/15/22 History tablet (Nitrostat) polyethylene glycol 3350 17 gram 17 g PO DAILY 10/03/20 01/15/22 History oral powder packet (Miralax) amlodipine 5 mg tablet 5 mg PO DAILY 10/09/21 01/15/22 History apixaban 2.5 mg tablet (Eliquis) 2.5 mg PO BID tab 10/09/21 01/15/22 History diltiazem HCl 240 mg 240 mg PO DAILY 10/09/21 01/15/22 History capsule,extended release 24 hr losartan 50 mg tablet 75 mg PO DAILY tab 10/09/21 01/15/22 History zolpidem 5 mg tablet 5 mg PO QHS PRN 10/09/21 01/15/22 History omeprazole 20 mg capsule,delayed 20 mg PO PRN 01/15/22 History release Exam Narrative Exam Narrative: GEN: Alert and oriented, pleasant and cooperative, gives linear history. No acute distress at rest. HEENT: Head atraumatic. Conjunctiva clear, no icterus. PEERL, EOMI. no rhinorrhea. MMM, OP benign. Neck is supple with no masses or lymphadenopathy, trachea midline LUNGS: CTAB with normal effort CV: bradycardic but regular, with no murmurs, gallops, or rubs. ABD: +BS, soft, NT/ND EXT: no cyanosis, clubbing, or edema MSK: No joint redness or swelling NEURO: CN 2-12 grossly intact. Normal movement of 4 extremities. Normal speech and coordination SKIN: No rashs or open wounds. PSYCH: normal mood and affect Results Imaging CT scan - chest: report reviewed (4cm descending aortic dilation, no change on repeat CT) EKG: report reviewed and image reviewed (sinus rhythm, ST depression 1-2mm in 2, AVL, T-waves flat/negative in V2-V6) Labs Result diagrams: 01/15/22 17:00 01/15/22 17:00 Labs: Laboratory Results - last 24 hr 01/15/22 01/15/22 01/15/22 17:00 17:00 18:33 WBC 13.85 H RBC 4.78 Hgb 15.1 Hct 44.1 MCV 92.3 MCH 31.6 MCHC 34.2 RDW 12.3 Plt Count 228 MPV 10.8 Immature Gran % 0.8 Neutrophils % 76.6 Lymphocytes % 14.7 Monocytes % 6.1 Eosinophils % 1.2 Basophils % 0.6 Nucleated RBC % 0 Absolute Neutrophils 10.61 H Absolute Lymphocytes 2.04 Absolute Monocytes 0.84 H Absolute Eosinophils 0.17 Absolute Basophils 0.08 Sodium 139 Potassium 4.6 Chloride 107 Carbon Dioxide 23.7 Anion Gap 8.3 BUN 29 H Creatinine 1.5 H Estimated GFR/1.73 m2 44.69 Glucose 117 H Calcium 9.0 Magnesium 2.3 Total Bilirubin 0.4 AST 25 ALT 31 Alkaline Phosphatase 94 Troponin I 176 H* Total Protein 7.6 Albumin 4.2 COVID-19 Source Nasal/Nares SARS-CoV-2 (PCR) Negative 01/15/22 20:25 WBC RBC Hgb Hct MCV MCH MCHC RDW Plt Count MPV Immature Gran % Neutrophils % Lymphocytes % Monocytes % Eosinophils % Basophils % Nucleated RBC % Absolute Neutrophils Absolute Lymphocytes Absolute Monocytes Absolute Eosinophils Absolute Basophils Sodium Potassium Chloride Carbon Dioxide Anion Gap BUN Creatinine Estimated GFR/1.73 m2 Glucose Calcium Magnesium Total Bilirubin AST ALT Alkaline Phosphatase Troponin I 443 H* Total Protein Albumin COVID-19 Source SARS-CoV-2 (PCR) Last Vital Signs Temp 36.8 C 01/15/22 16:56 Pulse 60 01/15/22 21:46 Resp 12 01/15/22 21:46 BP 134/68 01/15/22 21:46 Pulse Ox 94 01/15/22 21:46
[2022-01-15 23:47] LABS: INR 1.2 (0.9-1.1); PTT Activated 28.3 sec (21.0-27.5)
[2022-01-16] VITALS (31 sets, daily range): BP systolic 107–147; BP diastolic 57–91; PULSE 51–76; RESP 9–25; TEMP 36–36.4; O2SAT 92–99
[2022-01-16 01:04] LABS: Troponin I 1089 ng/L (<or=60)
[2022-01-16] MEDS: Normal Saline 1,000 ML 125 ML IV (01:56)
[2022-01-16 06:39] LABS: Anion Gap 7.2 mmol/L (3-11); BUN 24 mg/dL (7-18); CO2 23.8 mmol/L (21.0-32.0); CREATININE 1.3 mg/dL (0.70-1.30); Calcium 8.3 mg/dL (8.5-10.1); Chloride 107 mmol/L (98-107); Estimated GFR 52.72 (mL/min/1.73m2); Glucose 133 mg/dL (74-106); Potassium 4.9 mmol/L (3.5-5.1); Sodium 138 mmol/L (136-145)
--- NOTE | 2022-01-16 07:15 | RT.EKG_ITS ---
APPROVED REPORT Exam: Resting ECG Reason for Exam: NSTEMI Patient Location: I HR:66 bpm ECG Measurements Heart Rate 66 AXIS VT 161 P 35 QRSd 93 QRS -17 QT 393 T 160 QTc 412 Conclusion Sinus rhythm...normal P axis, V-rate 50- 99 Borderline left axis deviation...QRS axis (-15,-29) Nonspecific repol abnormality, lateral leads...ST dep, T neg, I aVL V5 V6
[2022-01-16 08:01] LABS: Troponin I 3036 ng/L (<or=60)
[2022-01-16] MEDS: Aspirin 325 MG TAB PO (08:47)
[2022-01-16] MEDS: Losartan 50 MG TAB 75 MG PO (08:47)
[2022-01-16] MEDS: Metoprolol 25 MG TAB PO (08:47)
[2022-01-16] MEDS: amLODIPine 5 MG TAB PO (08:47)
[2022-01-16] MEDS: Clopidogrel 300 MG TAB PO (08:48)
[2022-01-16] MEDS: Pantoprazole 20 MG TABCR PO (08:48)
[2022-01-16 11:39] LABS: Troponin I 4590 ng/L (<or=60)
--- NOTE | 2022-01-16 11:49 | W.PM.DS.N ---
Date of service: 01/16/22 Time of Service: 13:09 DS: Diagnosis Discharge Diagnosis (1) Non-ST elevation VT (NSTEMI): Status: Acute (2) Aortic dilatation: Status: Acute (3) Chronic kidney disease, stage 3: Status: Acute (4) Hypertension: Status: Chronic (5) DVT prophylaxis: Status: Acute (6) Discharge planning issues: Status: Acute Discharge Plan Disposition Patient Disposition: [facility] Condition: Stable Discharge Details Reason For Visit: NSTEMI Admit Date/Time: 01/15/22 22:41 Admit Provider: Isidro Kelly Attending Provider: Isidro Kelly Primary Care Provider: Calixto Canales Hospital Course Hospital Course: 81 yo M with history of HTN, paroxysmal atrial fibrillation, and CKD 3 on low dose apixaban presenting with pain in the upper back between the shoulder blades that started at around 6pm the day prior to admission (FridayJanuary 14).? Started after dinner.? He felt a little SOB when he walked outside in cold air, but mildly.? Sharp pain, no radiation.? No chest pain/tightness, palpitations, nausea, diaphoresis, or lightheadedness.? Pain was not severe, he went to sleep.? He still had the pain the next day, called his PCP and triage nurse got back to him, recommended ED.? Pain improved in the ED after given morphine, has now resolved.? He had had similar pain in the past, but it had gone away on its own. No recent medication changes, takes his medication regularly.? He states he hasn't had atrial fibrillation in a year, he knows when he goes into it. ? Consulted manager transportation planning at [facility] of NSTEMI that recommended loading chewable ASA and clopidogrel dose ordered.? Holding apixaban and treating with heparin drip in anticipation of transfer to [facility] the following day for possible cardiac catheterization.? Also initiated high intensity statin and beta dom therapy. The pain resolved while in the ED. There was an initial concern for evolving dissection, but no evidence of this on repeat CTA of the chest while in the ED.? EKGs showed lateral ST depression but no evidence of a STEMI. Initial troponin was 176. While hospitalized his troponin steadily increased: 176>443>1089>3036>4590>5762. He remained pain free, w/o SOA, diaphorses. Transferred to [facility] for further cardiac care. Home Meds and New Rx's Prescriptions: New clopidogrel 75 mg Tablet 75 mg PO DAILY Qty: 0 0RF pantoprazole [Protonix] 20 mg Tablet,Delayed Release (Dr/Ec) 20 mg PO DAILY@0730 Qty: 0 0RF aspirin 81 mg Tablet,Chewable 81 mg PO DAILY Qty: 0 0RF metoprolol tartrate 25 mg Tablet 25 mg PO Q8H Qty: 0 0RF heparin(porcine) in 0.45% NaCl 25,000 unit/250 mL Parenteral Solution 25,000 units IV INFUSION Qty: 0 0RF Iv Access 1 ea IV DIRECTED Qty: 0 0RF Continued polyethylene glycol 3350 [Miralax] 17 gram powder in packet 17 g PO DAILY 0RF amlodipine 5 mg tablet 5 mg PO DAILY 0RF losartan 50 mg tablet 75 mg PO DAILY 0RF zolpidem 5 mg tablet 5 mg PO QHS PRN0RF nitroglycerin [Nitrostat] 0.4 mg tablet, sublingual 0.4 mg sublingual Q5M PRN0RF Rx Instructions: do not exceed 3 doses per episode Eliquis 2.5 mg tablet 2.5 mg PO BID 0RF Label Comments: pt states hasn't been taking for 2-3 weeks as of 08/08/20 Discontinued diltiazem HCl 240 mg capsule,extended release 24hr 240 mg PO DAILY 0RF omeprazole 20 mg capsule,delayed release(DR/EC) 20 mg PO PRN0RF Label Comments: TAKE ONE CAPSULE BY MOUTH EVERY DAY Discharge Instructions Activity:: Activity as Tolerated Diet:: As Tolerated DS: Summary Time Spent with Patient providing and/or coordinating discharge services: Greater than 30 minutes Status at Discharge Functional status at discharge: independent ambulation Overall status at discharge: patient is not back to baseline Mental Status: mental status grossly normal Speech and Movement: speech and movement normal Mood: congruent mood Affect: normal affect Exam Narrative Exam Narrative: GEN: Alert and oriented, pleasant and cooperative, gives linear history. No acute distress at rest. HEENT: Head atraumatic. Conjunctiva clear, no icterus. PEERL, EOMI. no rhinorrhea. MMM, OP benign. Neck is supple with no masses or lymphadenopathy, trachea midline LUNGS: CTAB with normal effort CV: bradycardic but regular, with no murmurs, gallops, or rubs. ABD: +BS, soft, NT/ND EXT: no cyanosis, clubbing, or edema MSK: No joint redness or swelling NEURO: CN 2-12 grossly intact. Normal movement of 4 extremities. Normal speech and coordination SKIN: No rashs or open wounds. PSYCH: normal mood and affect Psych Mental Status: mental status grossly normal Speech and Movement: speech and movement normal Mood: congruent mood Affect: normal affect DS: Data Vitals/I&O Vitals and I&O: Vital Signs Temperature 36.4 C L 01/16/22 08:55 Temperature Source Temporal Artery Scan 01/16/22 08:55 Pulse 52 L 01/16/22 10:01 Pulse 52 L 01/16/22 10:01 Respiratory Rate 15 01/16/22 10:01 Respiratory Effort Non-Labored 01/16/22 08:55 Respiratory Depth Normal 01/16/22 08:55 Respiratory Pattern Normal 01/16/22 08:55 Blood Pressure 135/70 01/16/22 10:01 Blood Pressure Mean 83 01/16/22 10:01 Blood Pressure Position Supine 01/16/22 08:55 Pulse Oximetry 93 01/16/22 10:01 Oxygen Delivery Method Room Air 01/16/22 08:55 Oxygen Flow Rate 0 01/16/22 08:55 Pain Level 0 01/16/22 08:55 Intake & Output 01/15/22 01/15/22 01/16/22 11:59 23:59 11:59 Intake Total 216.858 / 2160.858 Output Total 175 / 175 Balance / Weight 77.5 kg 75.353 kg Intake: IV 1960.858 / Oral 200 / 200 Output: Urine 175 / 175 Other: Urine Color Yellow Urine Appearance Clear Urine Odor Normal Comment Unable to test, measure or see appearance due to being mixed with stool Stool Occult Blood Negative Stool Size Large Stool Characteristics Soft Brown Voiding Methods Bedside Commode Data Completed and Pending Labs on day of discharge: Labs from last 24 hours 01/16/22 01/16/22 01/16/22 13:30 11:03 06:11 WBC RBC Hgb Hct MCV MCH MCHC RDW Plt Count MPV Immature Gran % Neutrophils % Lymphocytes % Monocytes % Eosinophils % Basophils % Nucleated RBC % Absolute Neutrophils Absolute Lymphocytes Absolute Monocytes Absolute Eosinophils Absolute Basophils PT INR APTT Pending Sodium Potassium Chloride Carbon Dioxide Anion Gap BUN Creatinine Estimated GFR/1.73 m2 Glucose Calcium Magnesium Total Bilirubin AST ALT Alkaline Phosphatase Troponin I 4590 H* 3036 H* Total Protein Albumin COVID-19 Source SARS-CoV-2 (PCR) 01/16/22 01/16/22 01/16/22 06:11 06:11 00:40 WBC RBC Hgb Hct MCV MCH MCHC RDW Plt Count MPV Immature Gran % Neutrophils % Lymphocytes % Monocytes % Eosinophils % Basophils % Nucleated RBC % Absolute Neutrophils Absolute Lymphocytes Absolute Monocytes Absolute Eosinophils Absolute Basophils PT INR APTT > 155.1 H* D Sodium 138 Potassium 4.9 Chloride 107 Carbon Dioxide 23.8 Anion Gap 7.2 BUN 24 H Creatinine 1.3 Estimated GFR/1.73 m2 52.72 Glucose 133 H Calcium 8.3 L Magnesium Total Bilirubin AST ALT Alkaline Phosphatase Troponin I 1089 H* Total Protein Albumin COVID-19 Source SARS-CoV-2 (PCR) 01/15/22 01/15/22 01/15/22 20:25 20:25 18:33 WBC RBC Hgb Hct MCV MCH MCHC RDW Plt Count MPV Immature Gran % Neutrophils % Lymphocytes % Monocytes % Eosinophils % Basophils % Nucleated RBC % Absolute Neutrophils Absolute Lymphocytes Absolute Monocytes Absolute Eosinophils Absolute Basophils PT 12.0 H INR 1.2 H APTT 28.3 H Sodium Potassium Chloride Carbon Dioxide Anion Gap BUN Creatinine Estimated GFR/1.73 m2 Glucose Calcium Magnesium Total Bilirubin AST ALT Alkaline Phosphatase Troponin I 443 H* Total Protein Albumin COVID-19 Source Nasal/Nares SARS-CoV-2 (PCR) Negative 01/15/22 01/15/22 17:00 17:00 WBC 13.85 H RBC 4.78 Hgb 15.1 Hct 44.1 MCV 92.3 MCH 31.6 MCHC 34.2 RDW 12.3 Plt Count 228 MPV 10.8 Immature Gran % 0.8 Neutrophils % 76.6 Lymphocytes % 14.7 Monocytes % 6.1 Eosinophils % 1.2 Basophils % 0.6 Nucleated RBC % 0 Absolute Neutrophils 10.61 H Absolute Lymphocytes 2.04 Absolute Monocytes 0.84 H Absolute Eosinophils 0.17 Absolute Basophils 0.08 PT INR APTT Sodium 139 Potassium 4.6 Chloride 107 Carbon Dioxide 23.7 Anion Gap 8.3 BUN 29 H Creatinine 1.5 H Estimated GFR/1.73 m2 44.69 Glucose 117 H Calcium 9.0 Magnesium 2.3 Total Bilirubin 0.4 AST 25 ALT 31 Alkaline Phosphatase 94 Troponin I 176 H* Total Protein 7.6 Albumin 4.2 COVID-19 Source SARS-CoV-2 (PCR) PFSH All Active Problems Discharge planning issues (Acute) DVT prophylaxis (Acute) Hypertension (Chronic) Aortic dilatation (Acute) Chronic kidney disease, stage 3 (Acute) Non-ST elevation VT (NSTEMI) (Acute) Spermatocele (Acute) Renal cyst (Acute) Gassiness (Acute) Hernia of abdominal cavity (Acute) RLQ abdominal pain (Acute) Medical History Atrial fibrillation Constipation Kidney disease Spermatocele Surgical History H/O colonoscopy 05/04/13. Negative exam. 2001. Negative exam. History of esophagogastroduodenoscopy (EGD) 05/04/2013. gastritis, hiatal hernia. History of hernia repair Social History Smoking/Tobacco Use Status: Never Smoking risk assessment performed?: Yes Alcohol Intake: current Alcohol Intake frequency: holidays/special occasions only Drug use: Never Substance use type: does not use Current gender identity: male Do you feel safe at home: Yes Do you feel safe in your relationship?: Yes Additional Social history: Lives alone on [address] in [place]. 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 Recently had to put into halfway, [facility], due to progressive Parkinsons after caring for her for years. Son and family in [place].
--- NOTE | 2022-01-16 14:04 | PDOC.CMIN ---
- If Service Date Differs Date of service: 01/16/22 Time of Service: 14:04 Care Management Initial Assess REASON FOR HOSPITALIZATION:: NSTEMI PAST MEDICAL HISTORY/PAST SURGICAL HISTORY:: All Active Problems. Discharge planning issues (Acute). DVT prophylaxis (Acute). Hypertension (Chronic). Aortic dilatation (Acute). Chronic kidney disease, stage 3 (Acute). Non-ST elevation ID (NSTEMI) (Acute). Spermatocele (Acute). Renal cyst (Acute). Gassiness (Acute). Hernia of abdominal cavity (Acute). RLQ abdominal pain (Acute). Medical History. Atrial fibrillation. Constipation. Kidney disease. Spermatocele. Surgical History. H/O colonoscopy. 05/04/13. Negative exam. 2001. Negative exam. History of esophagogastroduodenoscopy (EGD). 05/04/2013. gastritis, hiatal hernia. History of hernia repair PREVIOUS FUNCTIONAL STATUS/SOCIAL/FAMILY SUPPORTS:: Reji lives in [place], alone. His has been living at [facility] for about a year and a half, due to her parkinsons. He visits her 4 times a week. They have three children- two daughters who live in [place] and [place], and a son who lives in [place], [place]. His son and daughter in law are very helpful, as they are closeby, but all of his children are supportive. He is independent with ADL's, and continues to drive. CURRENT FUNCTIONAL STATUS:: Reji was sitting up in bed when CM met with him. He reported that per MD, he would be transferred to [facility] today, once a bed becomes available. Per MD, his troponin levels have been increasing throughout the day. Once a bed becomes available at [facility], he will be transferred. Reji stated that he has been talking to his children and updating them. He is comfortable with the plan to transfer. CM will continue to follow. ADVANCE DIRECTIVES:: On file. His , Kae, is listed as agent. His son, Tunde and DIL, Alondra are listed as alternate agent. Has patient been provided with info about the portal/API?: Yes Did the patient sign up for the portal?: No CODE STATUS:: Full Code INSURANCE COVERAGE / FINANCIAL ISSUES:: [employer] advantage (Commercial MCR replacement) CURRENT HOME/COMMUNITY SERVICES/EQUIPMENT:: No current services or equipment. PRIMARY CARE PHYSICIAN:: Calixto Canales POTENTIAL DISCHARGE NEEDS:: coordinated transfer to tertiary facility PATIENT/FAMILY EDUCATION NEEDS:: Review expectations for transfer, discussion of self care needs and goals of care. ANTICIPATED BARRIERS TO DISCHARGE:: No current bed availability at [facility]. TRANSPORTATION:: EMS transfer, coordinated by RN Goring Cutter PLAN:: Reji will likely transfer to [facility] once a bed becomes available. He will transport via EMS, coordinated by RN Goring Cutter. He will follow up with his PCP and discharge plan of care. CM will continue to follow.
[2022-01-16 14:23] LABS: PTT Activated 80.5 sec (21.0-27.5)
[2022-01-16 15:53] LABS: Troponin I 5762 ng/L (<or=60)
== END 2022-01-16 18:14 | disposition short-term general hospital (02) | DRG 282 ==
LOC: ER 23:17 → ICU 23:48
PROVIDERS: Emergency Medicine; Family Medicine; Admitting Provider Family Medicine; Emergency Provider Nurse Practitioner Family; PCP Neuromusculoskeletal Medicine & OMM; Visit Provider Family Medicine
DX: I21.4 Non-ST elevation (NSTEMI) myocardial infarction (principal); N18.30 Chronic kidney disease, stage 3 unspecified; I77.810 Thoracic aortic ectasia; I48.91 Unspecified atrial fibrillation; K59.00 Constipation, unspecified; I12.9 Hypertensive chronic kidney disease with stage 1 through stage 4 chronic kidney disease, or unspecified chronic kidney disease
CPT/HCPCS: 36415; 71275; 74177; 80048; 80053; 87635; 93005; 96361; 96365; 96366; 96375; 96376; 99285; 83735; 84484; 85025; 85610; 85730; 93010; 99239; J2270; J3490

== ENCOUNTER → 2022-03-05 10:50 | Outpatient (BNVA) | payer MEDICARE, SELFPAY | PROVIDERS: PCP Neuromusculoskeletal Medicine & OMM; Referring Provider Neuromusculoskeletal Medicine & OMM; Visit Provider Internal Medicine Cardiovascular Disease | DX: I25.2 Old myocardial infarction (principal); I48.91 Unspecified atrial fibrillation; I10 Essential (primary) hypertension | CPT/HCPCS: 93005; 99203; 99214 ==

== ENCOUNTER 2022-03-05 11:19 | Outpatient (CLI) | payer MEDICARE, SELFPAY ==
--- NOTE | 2022-03-05 11:15 | RT.EKG_ITS ---
APPROVED REPORT Exam: Resting ECG Reason for Exam: NPW Baseline needed Patient Location: O HR:45 bpm ECG Measurements Heart Rate 45 AXIS HI 154 P 39 QRSd 97 QRS -20 QT 471 T -47 QTc 408 Conclusion Sinus bradycardia Recent inferoposterolateral myocardial infarction
== END 2022-03-05 11:20 | disposition home or self-care (01) ==
LOC: DI.CARD 11:19
PROVIDERS: PCP Neuromusculoskeletal Medicine & OMM; Visit Provider Internal Medicine Cardiovascular Disease
DX: I10 Essential (primary) hypertension (principal); I21.4 Non-ST elevation (NSTEMI) myocardial infarction; I48.91 Unspecified atrial fibrillation
CPT/HCPCS: 93010

== ENCOUNTER → 2022-06-04 11:11 | Outpatient (BNVA) | payer MEDICARE, SELFPAY | PROVIDERS: PCP Neuromusculoskeletal Medicine & OMM; Referring Provider Neuromusculoskeletal Medicine & OMM; Visit Provider Internal Medicine Cardiovascular Disease | DX: I48.0 Paroxysmal atrial fibrillation (principal); I25.2 Old myocardial infarction; Z79.01 Long term (current) use of anticoagulants; Z95.5 Presence of coronary angioplasty implant and graft; I10 Essential (primary) hypertension | CPT/HCPCS: 99214 ==

== ENCOUNTER 2022-06-28 10:07 | Emergency (ER) | payer MEDICARE, SELFPAY ==
[2022-06-28] VITALS (44 sets, daily range): BP systolic 119–176; BP diastolic 50–113; PULSE 41–65; RESP 11–23; TEMP 36.8–36.9; O2SAT 97–99
--- NOTE | 2022-06-28 10:00 | RT.EKG_ITS ---
APPROVED REPORT Exam: Resting ECG Reason for Exam: chest discomfort Patient Location: E HR:46 bpm ECG Measurements Heart Rate 46 AXIS WA 155 P 38 QRSd 86 QRS -20 QT 436 T -9 QTc 383 Conclusion Sinus bradycardia...rate< 60 Low voltage, precordial leads...precordial leads <1.0mV
--- NOTE | 2022-06-28 10:44 | W.ED.GENAD ---
Discharge Plan Disposition Patient Disposition: HOME Condition: Improving Discharge Details Clinical Impression: Atypical chest pain Primary Care Provider: Calixto Canales ED Provider: Jose Adams Home Meds and New Rx's Prescriptions: Continued metoprolol succinate 25 mg tablet extended release 24 hr 37.5 mg PO DAILY polyethylene glycol 3350 [Miralax] 17 gram powder in packet 17 g PO DAILY amlodipine 5 mg tablet 5 mg PO DAILY zolpidem 5 mg tablet 5 mg PO QHS PRN nitroglycerin [Nitrostat] 0.4 mg tablet, sublingual 0.4 mg sublingual Q5M PRN Rx Instructions: do not exceed 3 doses per episode pantoprazole 40 mg tablet,delayed release (DR/EC) 40 mg PO DAILY apixaban 5 mg tablet 5 mg PO BID atorvastatin 80 mg tablet 20 mg PO DAILY losartan 50 mg tablet 75 mg PO DAILY clopidogrel 75 mg Tablet 75 mg PO DAILY Qty: 0 0RF Iv Access 1 ea IV DIRECTED Qty: 0 0RF Discharge Instructions Instructions: Chest Pain (ED) Additional Instructions: Home to rest today. Please follow-up with Dr. Canales regarding your blood pressures and continue to check them at the same time each day. Your work-up today including 2 cardiac troponin's was reassuring. Medical Decision Making This is an 81-year-old male with a history of coronary artery disease status post percutaneous stenting at [facility] in December of this year. He has followed up with outpatient cardiology and has been adhering to his new medication regimen. Recently, he has had some elevated blood pressure and recently was seen at outlying facility for rapid A. fib. His primary care physician, Dr. Canales in conjunction with cardiology has been adjusting his antihypertensive regimen. He continues to take Plavix and Eliquis. This morning the patient states he awoke normally at 5 AM and felt substernal chest discomfort which she describes as burning or pressure. This resolved with getting out of bed. Patient then took his blood pressure per his routine and found it to be 180 systolic. He separately took 1 sublingual nitroglycerin which caused him a headache. He did not have chest pain at the time of taking the nitroglycerin. Due to his recent history the patient was transported to the ER. He arrives improved and without complaint. Blood pressure is 154/98 and he has a sinus bradycardia at approximately 50. Referred for laboratory testing, chest x-ray. Chest x-ray is without acute pulmonary findings. Patient's laboratories noted unremarkable CBC, chemistries with a BUN of 29 and creatinine of 1.6., Troponin negative. Patient observed on a cardiac monitor technician and repeat troponin obtained and negative. Patient reassured. He will follow-up with primary care for recheck. He is stable and appropriate for discharge at this time. HPI General Mode of arrival: EMS. Date/Time Provider Initiated Documentation: 06/28/22 10:11. Limitations to Documentation: no limitations. Information obtained by: patient and EMS. History of Present Illness 81 year old M presents to the emergency department with the chief complaint of Elevated blood pressure, transient chest pain resolved, described as mild, and is localized to the chest. Patient reports no radiation. Patient started experiencing this minute(s) and it has been now resolved. No relieving factors improve symptom(s), No exacerbating factors reported . Patient notes denies cough, diaphoresis, shortness of breath, syncope and weakness. Patient did receive the following treatments prior to arrival, other (Nitroglycerin x1 at home) Related Data Home Medications Medication Instructions Recorded Confirmed nitroglycerin 0.4 mg sublingual 0.4 mg sublingual Q5M PRN 09/29/20 06/04/22 tablet (Nitrostat) polyethylene glycol 3350 17 gram 17 g PO DAILY 10/03/20 06/04/22 oral powder packet (Miralax) amlodipine 5 mg tablet 5 mg PO DAILY 10/09/21 06/04/22 zolpidem 5 mg tablet 5 mg PO QHS PRN 10/09/21 06/04/22 IV Access 1 ea IV DIRECTED ##0 01/16/22 06/04/22 clopidogrel 75 mg tablet 75 mg PO DAILY #0 tabs 01/16/22 06/04/22 apixaban 5 mg tablet 5 mg PO BID 01/18/22 06/04/22 pantoprazole 40 mg tablet,delayed 40 mg PO DAILY 01/18/22 06/04/22 release atorvastatin 80 mg tablet 20 mg PO DAILY 06/04/22 06/04/22 losartan 50 mg tablet 75 mg PO DAILY 06/04/22 06/04/22 metoprolol succinate 25 mg 37.5 mg PO DAILY 06/04/22 06/04/22 tablet,extended release 24 hr Previous Rx's Medication Instructions Recorded IV Access 1 ea IV DIRECTED ##0 01/16/22 clopidogrel 75 mg tablet 75 mg PO DAILY #0 tabs 01/16/22 Allergies Allergy/AdvReac Type Severity Reaction Status Date / Time fexofenadine [From Jeanette] Allergy Unknown Verified 03/05/22 11:29 General Stated Complaint: Chest Pain ROSINA: 3 Review of Systems Narrative: Transient headache after nitroglycerin. Now improved. No recent illness. Has been performing cardiac rehab 1 hour a day 3 times a week. 7 systems were reviewed and otherwise negative PFSH All Active Problems (Updated 06/28/22 @ 14:45 by Jose Adams MD) Atypical chest pain (Acute) Atrial fibrillation (Chronic) DVT prophylaxis (Acute) Hypertension (Chronic) Aortic dilatation (Acute) Chronic kidney disease, stage 3 (Acute) Non-ST elevation [place] (NSTEMI) (Acute) Spermatocele (Acute) Renal cyst (Acute) Gassiness (Acute) Hernia of abdominal cavity (Acute) RLQ abdominal pain (Acute) Medical History Constipation Kidney disease Spermatocele Surgical History H/O colonoscopy 05/04/13. Negative exam. 2001. Negative exam. History of esophagogastroduodenoscopy (EGD) 05/04/2013. gastritis, hiatal hernia. History of hernia repair Social History Smoking/Tobacco Use Status: Never Smoking risk assessment performed?: Yes Alcohol Intake: current Alcohol Intake frequency: holidays/special occasions only Drug use: Never Substance use type: does not use Current gender identity: male Do you feel safe at home: Yes Do you feel safe in your relationship?: Yes Additional Social history: Lives alone on [address] in [place]. 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 Recently had to put into snf, [facility], due to progressive Parkinsons after caring for her for years. Son and family in [place]. Exam Narrative Exam Narrative: GEN: awake, alert, oriented 3. Pleasant, well groomed, interactive. HEAD: Normocephalic, atraumatic ENT: Mucous membranes moist, oropharynx unremarkable, External ear exam unremarkable EYES: PERRL, EOMI NECK: Full ROM, no DORYS, no menigismus CHEST/RESP: Nontender, clear to auscultation bilateral, no wheeze/rhonchi/rales CARDIOVASCULAR: Regular, bradycardic, no murmur, rub lana. 2+ Rad pulse bilateral ABDOMEN: Soft, nontender, no mass. +Bowel sounds EXT: Full ROM, no edema, no rash Neuro: Grossly normal neurologic exam, conversant, interactive. Psych: Speech fluent, thoughts congruent, affect normal Course Vital Signs Vital signs: Vital Signs Pulse 46 L 06/28/22 10:12 Respiratory Rate 18 06/28/22 10:12 Blood Pressure 154/98 H 06/28/22 10:12 Pulse Oximetry 98 06/28/22 10:12 Temperature Source Tympanic 06/28/22 10:12 Pulse 46 L 06/28/22 10:12 Respiratory Rate 18 06/28/22 10:29 Respiratory Effort 06/28/22 10:29 Respiratory Depth Normal 06/28/22 10:29 Blood Pressure 154/98 H 06/28/22 10:12 Blood Pressure Position Supine 06/28/22 10:12 Pulse Oximetry 98 06/28/22 10:12 Oxygen Delivery Method Room Air 06/28/22 10:12 Oxygen Flow Rate 0 06/28/22 10:12
--- NOTE | 2022-06-28 10:45 | DI.RAD_ITS ---
Exam(s) XR CHEST 2V PA LATERAL EXAM: XR CHEST 2V PA LATERAL CLINICAL HISTORY: transient CP, HTN TECHNIQUE: 2D digital imaging was performed of the chest. Two images were obtained. PA and lateral views were obtained. COMPARISON: No exams were available for comparison FINDINGS: MEDIASTINUM: Normal. HEART: Normal. PULMONARY VASCULATURE: Normal. LUNGS: Clear. PLEURAL SPACE: No pleural effusion or pneumothorax. BONE:Within normal limits for the patient's age. OTHER FINDINGS:Normal. IMPRESSION: No acute pulmonary findings. DATA REPOSITORY: RADIATION DOSE DELIVERED:
[2022-06-28 11:05] LABS: Abs Immature Grans 0.11 10^3/uL (0.0-0.06); Absolute Basophil Count 0.03 10^3/uL (0.0-0.2); Absolute Eosinophil Count 0.09 10^3/uL (0.0-0.7); Absolute Lymphocyte Count 1.35 10^3/uL (1.2-3.4); Absolute Neutrophil Count 6.03 10^3/uL (1.2-6.7); Basophils % 0.4; Eosinophils % 1.1; HCT 42.8 % (40.0-50.0); HGB 14.1 g/dL (13.5-17.5); Immature Grans % 1.3; Lymphocytes % 16.4; MCH 30.5 pg (27.0-33.0); MCHC 32.9 % (32.0-36.0); MCV 92 fL (80-95); MPV 11.3 fL (8.0-11.0); Monocytes % 7.3; Neutrophils % 73.5; Platelet Count 184 10^3/uL (130-400); RBC 4.63 10^6/uL (4.36-5.78); RDW 12.7 % (11.8-14.1); RDW-SD 43.5 fL; WBC 8.21 10^3/uL (4.4-10.8)
[2022-06-28 11:18] LABS: INR 1.5 (0.9-1.1); PTT Activated 31.1 sec (21.0-27.5); Prothrombin Time 14.3 sec (9.3-11.0)
[2022-06-28 11:22] LABS: ALT 26 U/L (16-63); AST 20 U/L (15-37); Albumin 3.6 g/dL (3.4-5.0); Alkaline Phosphatase 102 U/L (46-116); Anion Gap 6.6 mmol/L (3-11); BUN 29 mg/dL (7-18); Bilirubin, Total 0.6 mg/dL (0.2-1.0); CO2 26.4 mmol/L (21.0-32.0); CREATININE 1.6 mg/dL (0.70-1.30); Calcium 8.8 mg/dL (8.5-10.1); Chloride 104 mmol/L (98-107); Estimated GFR 42.49 (mL/min/1.73m2); Glucose 106 mg/dL (74-106); Potassium 4.5 mmol/L (3.5-5.1); Sodium 137 mmol/L (136-145); Troponin I < 50 ng/L (<or=60)
[2022-06-28 14:35] LABS: Troponin I < 50 ng/L (<or=60)
== END 2022-06-28 15:06 | disposition home or self-care (01) ==
PROVIDERS: Emergency Provider Emergency Medicine; PCP Neuromusculoskeletal Medicine & OMM
DX: R07.89 Other chest pain (principal); I48.91 Unspecified atrial fibrillation; I25.10 Atherosclerotic heart disease of native coronary artery without angina pectoris; R00.1 Bradycardia, unspecified; Z79.01 Long term (current) use of anticoagulants; Z79.02 Long term (current) use of antithrombotics/antiplatelets; Z95.5 Presence of coronary angioplasty implant and graft
CPT/HCPCS: 36415; 80053; 93005; 99283; 71046; 83735; 84484; 85025; 85610; 85730; 93010; 99285

== ENCOUNTER → 2022-09-24 10:40 | Outpatient (BNVA) | payer MEDICARE, SELFPAY | PROVIDERS: PCP Neuromusculoskeletal Medicine & OMM; Visit Provider Internal Medicine Cardiovascular Disease | DX: I48.91 Unspecified atrial fibrillation (principal); I10 Essential (primary) hypertension; I25.2 Old myocardial infarction; Z79.01 Long term (current) use of anticoagulants; Z95.5 Presence of coronary angioplasty implant and graft | CPT/HCPCS: 99214; 99213 ==

== ENCOUNTER → 2022-10-08 00:53 | Outpatient (CLI) | payer MEDICARE, SELFPAY ==
--- NOTE | 2022-10-08 07:00 | DI.US_ITS ---
Exam(s) US RENAL EXAM: US RENAL CLINICAL HISTORY: monitoring RENAL CYSTS,N28.1 TECHNIQUE: Ultrasound of both kidneys performed using standard protocol. COMPARISON: US US RENAL from 10/03/[address] THORAX CTA from 01/15/2022 FINDINGS: RIGHT KIDNEY: Measures 10.3 cm in length. Cysts. Largest measures 2.3 x 2.0 cm. Normal cortical thickness and cor ticomedullary differentiation .No solid masses No intrarenal calculi nor hydronephrosis. LEFT KIDNEY: Measures 9.2 cm in length. Cysts evident. Largest measures 1.1 x 1.0 cm.. Normal cortical thicknes s and corticomedullary differentiaion. No solids masses. No intrarenal calculi nor hydonephrosis. URINARY BLADDER: Prevoid volume is 378 cc Postvoid volume is 0 cc No evidence of bladder mass nor diverticuli. Ureterovesical jets: Both identified and appear symmetrical IMPRESSION: 1. Bilateral renal cysts measuring up to 2.3 cm. No solid renal masses. No calculi. No hydronephr osis. 2. No obvious abnormality in the urinary bladder. Bladder empties adequately. DATA REPOSITORY:
== END ==
PROVIDERS: PCP Neuromusculoskeletal Medicine & OMM; Visit Provider Nurse Practitioner Gerontology
DX: N28.1 Cyst of kidney, acquired (principal)
CPT/HCPCS: 76770; 99213

== ENCOUNTER 2022-11-26 03:40 | Emergency (ER) | payer MEDICARE, SELFPAY ==
[2022-11-26] VITALS (21 sets, daily range): BP systolic 147–184; BP diastolic 65–87; PULSE 47–76; RESP 10–35; TEMP 37.1; O2SAT 98
--- NOTE | 2022-11-26 03:30 | RT.EKG_ITS ---
APPROVED REPORT Exam: Resting ECG Reason for Exam: dizziness Patient Location: E HR:59 bpm ECG Measurements Heart Rate 59 AXIS WI 149 P 26 QRSd 91 QRS -22 QT 411 T 3 QTc 407 Conclusion Sinus bradycardia...rate< 60 Atrial premature complex...SV complex w/ short R-R interval. Sinus. Left axis. No STEMI. I have reviewed and interpreted ECG and agree with software generated interpretation.
--- NOTE | 2022-11-26 03:54 | ED.GENADUL_ITS ---
Discharge Plan Disposition Patient Disposition: Home Condition: Improving Discharge Details Clinical Impression: Accelerated hypertension Primary Care Provider: Calixto Canales ED Provider: Maye Robertson Home Meds and New Rx's Prescriptions: New hydrochlorothiazide 12.5 mg tablet 12.5 mg PO DAILY Qty: 30 0RF Continued metoprolol succinate 25 mg tablet extended release 24 hr 25 mg PO DAILY polyethylene glycol 3350 [Miralax] 17 gram powder in packet 17 g PO DAILY zolpidem 5 mg tablet 5 mg PO QHS PRN nitroglycerin [Nitrostat] 0.4 mg tablet, sublingual 0.4 mg sublingual Q5M PRN Rx Instructions: do not exceed 3 doses per episode pantoprazole 40 mg tablet,delayed release (DR/EC) 40 mg PO DAILY losartan 50 mg tablet 75 mg PO DAILY apixaban 5 mg tablet 2.5 mg PO BID clopidogrel 75 mg Tablet 75 mg PO DAILY Qty: 0 0RF Iv Access 1 ea IV DIRECTED Qty: 0 0RF Discontinued amlodipine 5 mg tablet 5 mg PO DAILY Discharge Instructions Instructions: Hypertension (ED) Additional Instructions: Your blood tests and EKG today are reassuring and show no evidence of acute concerning or significant findings. Your COVID test today is negative. Drink plenty of fluids and get plenty of rest. Stop taking your amlodipine. A prescription for a new blood pressure medication called hydrochlorothiazide has been sent electronically to your pharmacy to start taking tomorrow as directed. Call your primary care doctor's office today to schedule a follow-up appointment for reevaluation within the next week and for continued management of your blood pressure. You have been placed on care management's list to help arrange this follow-up appointment. Return immediately to the emergency department if you develop any worsening or new concerning symptoms. Discharge Data Discharge Physician: Maye Robertson Medical Decision Making 0345 -- 82-year-old male with a history of hypertension, atrial fibrillation on Eliquis, chronic kidney disease and NSTEMI who presents for high blood pressure since yesterday morning. He denies any symptoms of dizziness, chest pain, shortness of breath, headache. Pressure on arrival 174/67. Patient appears mildly anxious and nontoxic and denies any acute complaints at this time. He has no focal deficits on exam. History and presentation does not appear consistent with ACS, PE, dissection, CVA, subarachnoid hemorrhage or meningitis. Patient's blood pressure medication includes amlodipine, metoprolol and losartan. He states he was started on amlodipine most recently and feels like it has not been helping his blood pressure. He took an extra dose last night without relief. Considering his age and history, will obtain screening labs, EKG and give a dose of hydrochlorothiazide and Ativan. 0545 --Labs reviewed and unremarkable. Patient reassessed and he feels much better. Blood pressure now 147/71. Patient feels comfortable going home. Discussed with patient that management of blood pressure can take time and may require multiple dosage changes or different medications through management with his primary care doctor. As he states he feels he has not been responding well to the amlodipine recently, will stop amlodipine and start hydrochlorothiazide which has been sent electronically to his pharmacy. Patient placed on care management list to help arrange for a follow-up appoint with his primary care doctor this week for reevaluation and continued management of his blood pressure. Usual and customary return precautions given prior to discharge. Medical Records Medical records reviewed: Yes I reviewed the patient's medical records. Lab Data Lab results reviewed: Yes I reviewed the patient's lab results. Labs: Laboratory Tests Range/Units 11/26/22 11/26/22 11/26/22 03:10 03:10 03:10 WBC (4.4-10.8) 10^3/uL 10.13 RBC (4.36-5.78) 10^6/uL 5.13 Hgb (13.5-17.5) g/dL 15.5 Hct (40.0-50.0) % 47.0 MCV (80-95) fL 92 MCH (27.0-33.0) pg 30.2 MCHC (32.0-36.0) % 33.0 RDW (11.8-14.1) % 12.3 Plt Count (130-400) 10^3/uL 200 MPV (8.0-11.0) fL 10.8 Immature Gran % 1.0 Neutrophils % 76.4 Lymphocytes % 16.0 Monocytes % 4.9 Eosinophils % 0.9 Basophils % 0.8 Nucleated RBC % (0.0-0.3) % 0.0 Absolute Neutrophils (1.2-6.7) 10^3/uL 7.74 H Absolute Lymphocytes (1.2-3.4) 10^3/uL 1.62 Absolute Monocytes (0.1-0.8) 10^3/uL 0.50 Absolute Eosinophils (0.0-0.7) 10^3/uL 0.09 Absolute Basophils (0.0-0.2) 10^3/uL 0.08 Sodium (136-145) mmol/L 140 Potassium (3.5-5.1) mmol/L 4.3 Chloride (98-107) mmol/L 106 Carbon Dioxide (21.0-32.0) mmol/L 24.7 Anion Gap (3-11) mmol/L 9.3 BUN (7-18) mg/dL 33 H Creatinine (0.70-1.30) mg/dL 1.4 H Est GFR (CKD-EPI 2020) (mL/min/1.73m2) 49.56 Glucose (74-106) mg/dL 143 H Calcium (8.5-10.1) mg/dL 9.6 Magnesium (1.8-2.4) mg/dL 2.1 Total Bilirubin (0.2-1.0) mg/dL 0.4 AST (15-37) U/L 22 ALT (16-63) U/L 21 Alkaline Phosphatase (46-116) U/L 112 Troponin I (<or=60) ng/L < 50 Total Protein (6.4-8.2) g/dL 7.2 Albumin (3.4-5.0) g/dL 3.9 COVID-19 Source SARS-CoV-2 (PCR) (Negative) Range/Units 11/26/22 04:22 WBC (4.4-10.8) 10^3/uL RBC (4.36-5.78) 10^6/uL Hgb (13.5-17.5) g/dL Hct (40.0-50.0) % MCV (80-95) fL MCH (27.0-33.0) pg MCHC (32.0-36.0) % RDW (11.8-14.1) % Plt Count (130-400) 10^3/uL MPV (8.0-11.0) fL Immature Gran % Neutrophils % Lymphocytes % Monocytes % Eosinophils % Basophils % Nucleated RBC % (0.0-0.3) % Absolute Neutrophils (1.2-6.7) 10^3/uL Absolute Lymphocytes (1.2-3.4) 10^3/uL Absolute Monocytes (0.1-0.8) 10^3/uL Absolute Eosinophils (0.0-0.7) 10^3/uL Absolute Basophils (0.0-0.2) 10^3/uL Sodium (136-145) mmol/L Potassium (3.5-5.1) mmol/L Chloride (98-107) mmol/L Carbon Dioxide (21.0-32.0) mmol/L Anion Gap (3-11) mmol/L BUN (7-18) mg/dL Creatinine (0.70-1.30) mg/dL Est GFR (CKD-EPI 2020) (mL/min/1.73m2) Glucose (74-106) mg/dL Calcium (8.5-10.1) mg/dL Magnesium (1.8-2.4) mg/dL Total Bilirubin (0.2-1.0) mg/dL AST (15-37) U/L ALT (16-63) U/L Alkaline Phosphatase (46-116) U/L Troponin I (<or=60) ng/L Total Protein (6.4-8.2) g/dL Albumin (3.4-5.0) g/dL COVID-19 Source Nasal/Nares SARS-CoV-2 (PCR) (Negative) Negative ECG Data Attestation: I personally reviewed and interpreted this ECG (s) as follows: Interpretation: Rate of 59, sinus, left axis, no STEMI. HPI General Mode of arrival: ambulatory . Date/Time Provider Initiated Documentation: 11/26/22 03:50 . Limitations to Documentation: no limitations . Information obtained by: patient . HPI Narrative: Patient is a an 82-year-old male with a history of hypertension, atrial fibrillation on Eliquis, chronic kidney disease, NSTEMI presents to the ED with a concern for high blood pressure since yesterday morning. Patient states he called the ambulance when he woke 1 hour prior to arrival to use the bathroom and his face felt flushed and he checked his blood pressure and it was 197/94. Patient states his normal blood pressure is usually 140s/80s. Patient states he went to bed at 9:00 last night and awoke first at 11 PM and noted his blood pressure was 180s/90s. He states he took an extra amlodipine at that time. Patient states he has been taking all of his regular medications as directed. He states for the past year he has had occasional dizziness if he stands up too quickly but denies any dizziness since yesterday. He also denies any fever, blurry vision, headache, chest pain, shortness of breath, abdominal pain, urinary symptoms or unilateral weakness or numbness. Related Data Home Medications Medication Instructions Recorded Confirmed nitroglycerin 0.4 mg sublingual 0.4 mg sublingual Q5M PRN 09/29/20 11/26/22 tablet (Nitrostat) polyethylene glycol 3350 17 gram 17 g PO DAILY 10/03/20 11/26/22 oral powder packet (Miralax) zolpidem 5 mg tablet 5 mg PO QHS PRN 10/09/21 11/26/22 IV Access 1 ea IV DIRECTED ##0 01/16/22 09/24/22 clopidogrel 75 mg tablet 75 mg PO DAILY #0 tabs 01/16/22 11/26/22 pantoprazole 40 mg tablet,delayed 40 mg PO DAILY 01/18/22 11/26/22 release losartan 50 mg tablet 75 mg PO DAILY 06/04/22 11/26/22 apixaban 5 mg tablet 2.5 mg PO BID 09/24/22 11/26/22 metoprolol succinate 25 mg 25 mg PO DAILY 09/24/22 11/26/22 tablet,extended release 24 hr hydrochlorothiazide 12.5 mg tablet 12.5 mg PO DAILY #30 tabs 11/26/22 Previous Rx's Medication Instructions Recorded IV Access 1 ea IV DIRECTED ##0 01/16/22 clopidogrel 75 mg tablet 75 mg PO DAILY #0 tabs 01/16/22 hydrochlorothiazide 12.5 mg tablet 12.5 mg PO DAILY #30 tabs 11/26/22 Allergies Allergy/AdvReac Type Severity Reaction Status Date / Time fexofenadine [From Jeanette] Allergy Unknown Verified 11/26/22 03:47 General Stated Complaint: GenMedical ROSINA: 3 Review of Systems All systems reviewed & are unremarkable except as noted in HPI and below Constitutional Constitutional: Reports as per HPI, Denies chills and Denies fever(s) Eyes Eyes: Denies blurry vision ENT Ears, Nose, Mouth, and Throat: Denies dizziness, Denies sore throat and Denies throat swelling Cardiovascular Cardiovascular: Denies chest pain and Denies dyspnea Respiratory Respiratory: Denies cough and Denies dyspnea Gastrointestinal Gastrointestinal: Denies abdominal pain, Denies diarrhea and Denies vomiting Genitourinary Genitourinary: Denies hematuria and Denies dysuria Musculoskeletal Musculoskeletal: Denies back pain and Denies numbness Integumentary/Breasts Skin/Breast: Denies lesions and Denies rash Neurologic Neurologic: Denies dizziness, Denies localized weakness and Denies numbness Allergic/Immunologic Allergic/Immunologic: Denies throat swelling PFSH All Active Problems (Updated 11/26/22 @ 05:47 by Maye Robertson DO) Accelerated hypertension (Acute) Atrial fibrillation (Chronic) DVT prophylaxis (Acute) Hypertension (Chronic) Aortic dilatation (Acute) Chronic kidney disease, stage 3 (Acute) Non-ST elevation [place] (NSTEMI) (Acute) Spermatocele (Acute) Renal cyst (Acute) Gassiness (Acute) Hernia of abdominal cavity (Acute) RLQ abdominal pain (Acute) Medical History Constipation Kidney disease Spermatocele Surgical History H/O colonoscopy 05/04/13. Negative exam. 2001. Negative exam. History of esophagogastroduodenoscopy (EGD) 05/04/2013. gastritis, hiatal hernia. History of hernia repair Social History Smoking/Tobacco Use Status: Never Smoking risk assessment performed?: Yes Alcohol Intake: current Alcohol Intake frequency: holidays/special occasions only Drug use: Never Substance use type: does not use Current gender identity: male Do you feel safe at home: Yes Do you feel safe in your relationship?: Yes Additional Social history: Lives alone on [address] in [place]. 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 Recently had to put into retirement, [facility], due to progressive Parkinsons after caring for her for years. Son and family in [place]. Exam Const General: cooperative, healthy appearing and no acute distress Orientation: alert, awake and oriented x3 HENMT Head: normal to inspection Ears: hearing grossly normal bilaterally, external ears normal and TM's normal bilaterally Face and sinus: normal facial exam Mouth: oral mucosae normal Throat: posterior oropharynx normal Eyes General: appearance normal, both eyes and all related structures Pupils: PERRL EOM: EOM intact bilaterally Neck Neck: normal visual inspection and No submandibular swelling Lymphatic: no lymphadenopathy noted Chest Chest: normal inspection of the chest and no tenderness Resp Effort & Inspection: normal respiratory effort and able to speak in complete sentences Auscultation: clear to auscultation bilaterally Cardio Rate: regular rate Rhythm: regular rhythm GI Inspection: normal to inspection Palpation: soft, not firm, not rigid and nontender Auscultation: hypoactive bowel sounds Skin General skin exam: no rashes or lesions noted Neuro General: patient alert, patient awake, patient oriented x3, moves all extremities and no meningeal signs Cranial Nerves: CN's II-XI intact bilaterally Cognition: normal cognition Speech: speech normal Motor: muscle tone normal throughout and strength 5/5 throughout Sensory Exam: no sensory deficits noted Extrem General: normal to inspection, full ROM, capillary refill normal, no calf tenderness bilaterally and no edema Psych Appearance: grossly normal Mental Status: mental status grossly normal Speech and Movement: speech and movement normal Affect: normal affect Course Vital Signs Vital signs: Vital Signs Temperature 98.8 F 11/26/22 03:36 Pulse 61 11/26/22 03:36 Respiratory Rate 18 11/26/22 03:36 Blood Pressure 174/67 H 11/26/22 03:36 Pulse Oximetry 98 11/26/22 03:36 Temperature 98.8 F 11/26/22 03:36 Temperature Source Temporal Artery Scan 11/26/22 03:36 Pulse 61 11/26/22 03:36 Respiratory Rate 16 11/26/22 03:41 Respiratory Effort 11/26/22 03:41 Respiratory Depth Normal 11/26/22 03:41 Respiratory Pattern Normal 11/26/22 03:41 Blood Pressure 174/67 H 11/26/22 03:36 Blood Pressure Position Sitting 11/26/22 03:36 Pulse Oximetry 98 11/26/22 03:36 Oxygen Delivery Method Room Air 11/26/22 03:36 Oxygen Flow Rate 0 11/26/22 03:36
[2022-11-26 04:05] LABS: Absolute Basophil Count 0.08 10^3/uL (0.0-0.2); Absolute Eosinophil Count 0.09 10^3/uL (0.0-0.7); Absolute Lymphocyte Count 1.62 10^3/uL (1.2-3.4); Absolute Neutrophil Count 7.74 10^3/uL (1.2-6.7); Basophils % 0.8; Eosinophils % 0.9; HGB 15.5 g/dL (13.5-17.5); MCH 30.2 pg (27.0-33.0); MCV 92 fL (80-95); MPV 10.8 fL (8.0-11.0); Monocytes % 4.9; Neutrophils % 76.4; Platelet Count 200 10^3/uL (130-400); RBC 5.13 10^6/uL (4.36-5.78); RDW 12.3 % (11.8-14.1); RDW-SD 41.9 fL; WBC 10.13 10^3/uL (4.4-10.8)
[2022-11-26 04:21] LABS: ALT 21 U/L (16-63); AST 22 U/L (15-37); Albumin 3.9 g/dL (3.4-5.0); Alkaline Phosphatase 112 U/L (46-116); Anion Gap 9.3 mmol/L (3-11); BUN 33 mg/dL (7-18); Bilirubin, Total 0.4 mg/dL (0.2-1.0); CO2 24.7 mmol/L (21.0-32.0); CREATININE 1.4 mg/dL (0.70-1.30); Calcium 9.6 mg/dL (8.5-10.1); Chloride 106 mmol/L (98-107); Estimated GFR 49.56 (mL/min/1.73m2); Glucose 143 mg/dL (74-106); Potassium 4.3 mmol/L (3.5-5.1); Sodium 140 mmol/L (136-145); Total Protein 7.2 g/dL (6.4-8.2)
[2022-11-26] MEDS: LORazepam 0.5 MG TAB PO (04:21)
[2022-11-26] MEDS: hydroCHLOROthiazide 25 MG TAB PO (04:21)
[2022-11-26 04:29] LABS: Source Nasal/Nares
[2022-11-26 04:39] LABS: Magnesium 2.1 mg/dL (1.8-2.4); Troponin I < 50 ng/L (<or=60)
[2022-11-26 05:02] LABS: COVID-19 PCR Negative (Negative)
--- NOTE | 2022-11-26 06:49 | NUR.NOTE ---
Referral to Care Management to f/u with PCP Dr Calixto Canales [facility] within a week for Hypertension Nursing Note:
== END 2022-11-26 05:57 | disposition home or self-care (01) ==
PROVIDERS: Emergency Provider Physician Assistant; PCP Neuromusculoskeletal Medicine & OMM
DX: I12.9 Hypertensive chronic kidney disease with stage 1 through stage 4 chronic kidney disease, or unspecified chronic kidney disease (principal); I48.91 Unspecified atrial fibrillation; N18.30 Chronic kidney disease, stage 3 unspecified; I25.2 Old myocardial infarction; Z79.01 Long term (current) use of anticoagulants; Z20.822 Contact with and (suspected) exposure to COVID-19
CPT/HCPCS: 80053; 87635; 93005; 99283; 99284; 83735; 84484; 85025; 93010

== ENCOUNTER → 2023-02-04 08:11 | Outpatient (BNVA) | payer MEDICARE, SELFPAY | PROVIDERS: PCP Neuromusculoskeletal Medicine & OMM; Referring Provider Neuromusculoskeletal Medicine & OMM; Visit Provider Nurse Practitioner Gerontology | DX: N43.42 Spermatocele of epididymis, multiple (principal) | CPT/HCPCS: 99213 ==

== ENCOUNTER 2023-03-10 23:22 | Emergency (ER) | payer MEDICARE, SELFPAY ==
--- NOTE | 2023-03-10 23:15 | RT.EKG_ITS ---
APPROVED REPORT Exam: Resting ECG Reason for Exam: chest pain Patient Location: E HR:96 bpm ECG Measurements Heart Rate [address] [id number] P [id number] QRSd 84 QRS -26 QT 344 T 14 QTc 435 Conclusion Atrial fibrillation...? atrial activity Inferior infarct, old...Q >35mS, II III aVF Physician: no stemi
[2023-03-10 23:21] VITALS: BP 157/79; PULSE 143; RESP 21; O2SAT 98
--- NOTE | 2023-03-10 23:30 | ED.GENADUL_ITS ---
Discharge Plan Disposition Patient Disposition: Home Discharge Details Clinical Impression: Atrial fibrillation with RVR, Acute dehydration Primary Care Provider: Calixto Canales ED Provider: Ruddy Garcia Home Meds and New Rx's Prescriptions: No Action metoprolol succinate 25 mg tablet extended release 24 hr 25 mg PO DAILY polyethylene glycol 3350 [Miralax] 17 gram powder in packet 17 g PO DAILY zolpidem 5 mg tablet 5 mg PO QHS PRN nitroglycerin [Nitrostat] 0.4 mg tablet, sublingual 0.4 mg sublingual Q5M PRN Rx Instructions: do not exceed 3 doses per episode pantoprazole 40 mg tablet,delayed release (DR/EC) 40 mg PO DAILY losartan 50 mg tablet 75 mg PO DAILY apixaban 5 mg tablet 2.5 mg PO BID Iv Access 1 ea IV DIRECTED Qty: 0 0RF hydrochlorothiazide 12.5 mg tablet 12.5 mg PO DAILY Qty: 30 0RF Discharge Instructions Instructions: A-fib (Atrial Fibrillation) (ED), Dehydration (ED) Additional Instructions: At this time your heart numbers have returned and are normal. Your work-up is otherwise stable. I do suspect that you may have been slightly dehydrated which could have brought about your symptoms. At this time your heart rate is controlled with your medications. Please stay well-hydrated at home. Take your medications as directed. If you notice any worsening of your symptoms, or any new symptoms such as vomiting, diarrhea, fever, chills, shortness of breath, chest pain, numbness, weakness, or fainting , please return immediately to the emergency department for reevaluation. Please follow up with your primary care provider as soon as possible for reassessment and reevaluation. As always, it was a pleasure participating in your medical care today. Referrals: Calixto Canales [Primary Care Provider] - Medical Decision Making This is an 82-year-old male with a past medical history of atrial fibrillation, previous NSTEMI, CKD, hypertension, on Eliquis, losartan, hydrochlorothiazide, and metoprolol, who presents today via EMS for atrial fibrillation with rapid ventricular response. Patient states that throughout the day he does not drink much fluids at all. Patient states that this evening he woke up out of bed with palpitations. He contacted EMS, heart rate was noted to be in the 140s to 160s. He was given metoprolol 5 mg IV. This converted him to a rate of 100, and he was brought to the ER for further assessment. Unfortunately upon arrival heart rate had returned back to the 140s. Patient denies any chest pain. He states that he feels much better now than before. He denies any fever, chills or vomiting or diarrhea. He states that he has been taking his medications as directed. He denies any syncope. No other complaints at this time. No other modifying factors. Exam demonstrates a well-appearing male, no signs of distress. Mildly hypertensive. No peripheral edema. Lungs are clear. Patient feels well. Heart rate is in the 140s. We will give an additional dose of 5 mg of metoprolol IV here, give a 500 cc bolus of normal saline which was started by EMS, monitor closely and reassess. EKG shows atrial fibrillation with no evidence of acute STEMI. 3:16 a.m. Initial laboratory work-up is returned normal, initial troponin and repeat troponin have returned normal. Creatinine is slightly elevated with an elevated BUN suggestive of mild dehydration which correlates clinically with the patient's symptoms and history. 2 separate doses of metoprolol were administered here, eventually the patient's heart rate stabilized and required no further intervention. Patient is now in atrial fibrillation with a controlled rate. After a prolonged observation period and a repeat normal troponin we did get the patient up, ambulate him around, he remains symptom- free. He feels well, and would like to go home. No return of his tachycardia with ambulation or activity. Patient stable for discharge. Discussed red flags for which to return. I have extensively reviewed the treatment plan and discharge instructions with the patient. I have addressed all patient concerns at this time. The patient was made aware of what symptoms to monitor for that wo uld warrant a return to the emergency department. Discussed the plan with the patient, they demonstrate verbal understanding and agreement with our assessment and plan at this time. The documentation in this chart was dictated using [employer] dictation software. Please excuse any dictation errors. HPI General Date/Time Provider Initiated Documentation: 03/10/23 23:29 . HPI Narrative: This is an 82-year-old male with a past medical history of atrial fibrillation, previous NSTEMI, CKD, hypertension, on Eliquis, losartan, hydrochlorothiazide, and metoprolol, who presents today via EMS for atrial fibrillation with rapid ventricular response. Patient states that he did not drink much fluid throughout the day. Patient states that this evening he woke up out of bed with palpitations. He contacted EMS, heart rate was noted to be in the 140s to 160s. He was given metoprolol 5 mg IV. This converted him to a rate of 100, and he was brought to the ER for further assessment. Unfortunately upon arrival heart rate had returned back to the 140s. Patient denies any chest pain. He states that he feels much better now than before. He denies any fever, chills or vomiting or diarrhea. He states that he has been taking his medications as directed. He denies any syncope. No other complaints at this time. No other modifying factors. Related Data Home Medications Medication Instructions Recorded Confirmed nitroglycerin 0.4 mg sublingual 0.4 mg sublingual Q5M PRN 09/29/20 11/26/22 tablet (Nitrostat) polyethylene glycol 3350 17 gram 17 g PO DAILY 10/03/20 11/26/22 oral powder packet (Miralax) zolpidem 5 mg tablet 5 mg PO QHS PRN 10/09/21 11/26/22 IV Access 1 ea IV DIRECTED ##0 01/16/22 09/24/22 pantoprazole 40 mg tablet,delayed 40 mg PO DAILY 01/18/22 11/26/22 release losartan 50 mg tablet 75 mg PO DAILY 06/04/22 11/26/22 apixaban 5 mg tablet 2.5 mg PO BID 09/24/22 11/26/22 metoprolol succinate 25 mg 25 mg PO DAILY 09/24/22 11/26/22 tablet,extended release 24 hr hydrochlorothiazide 12.5 mg tablet 12.5 mg PO DAILY #30 tabs 11/26/22 Previous Rx's Medication Instructions Recorded IV Access 1 ea IV DIRECTED ##0 01/16/22 hydrochlorothiazide 12.5 mg tablet 12.5 mg PO DAILY #30 tabs 11/26/22 Allergies Allergy/AdvReac Type Severity Reaction Status Date / Time fexofenadine [From Jeanette] Allergy Unknown Verified 02/04/23 08:43 General Stated Complaint: Palpitatns ROSINA: 3 Review of Systems All systems reviewed & are unremarkable except as noted in HPI and below PFSH All Active Problems (Updated 03/11/23 @ 03:16 by Ruddy Garcia DO) Atrial fibrillation with RVR (Acute) Acute dehydration (Acute) Atrial fibrillation (Chronic) DVT prophylaxis (Acute) Hypertension (Chronic) Aortic dilatation (Acute) Chronic kidney disease, stage 3 (Acute) Non-ST elevation [place] (NSTEMI) (Acute) Spermatocele (Acute) Renal cyst (Acute) Gassiness (Acute) Hernia of abdominal cavity (Acute) RLQ abdominal pain (Acute) Medical History Constipation Kidney disease Spermatocele Surgical History H/O colonoscopy 05/04/13. Negative exam. 2001. Negative exam. History of esophagogastroduodenoscopy (EGD) 05/04/2013. gastritis, hiatal hernia. History of hernia repair Social History Smoking/Tobacco Use Status: Never Smoking risk assessment performed?: Yes Alcohol Intake: current Alcohol Intake frequency: holidays/special occasions only Drug use: Never Substance use type: does not use Current gender identity: male Do you feel safe at home: Yes Do you feel safe in your relationship?: Yes Additional Social history: Lives alone on [address] in [place]. 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 Recently had to put into long term, [facility], due to progr essive Parkinsons after caring for her for years. Son and family in [place]. Exam Narrative Exam Narrative: 1.Const: Well-nourished, Well-developed, appearing stated age 2.Eyes: PERRL, no conjunctival injection, and symmetrical lids. 3.ENT: Atraumatic external nose and ears. Dry MM. Neck: Symmetric, trachea midline, No thyromegaly. 4.CVS: +S1/S2, No murmurs or gallops. Peripheral pulses 2+ and equal in all extremities. Brisk capillary refill in all extremities. 5.RESP: Unlabored respiratory effort. Clear to auscultation bilaterally. No wheezes rales or rhonchi 6.GI: Soft, Nontender/Nondistended, No hepatosplenomegaly. No guarding or rebound. 7.MSK: Normocephalic/Atraumatic, Extremities w/o deformity or ttp No cyanosis or clubbing, Normal movement of all extremities 8.Skin: Warm, Dry. No rashes or lesions. 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 Sensation grossly intact, no focal neurologic deficits. 10.Psych: (AAO) x3. Appropriate mood and affect Course Vital Signs Vital signs: Vital Signs Pulse 143 H 03/10/23 23:21 Respiratory Rate 21 03/10/23 23:21 Blood Pressure 157/79 H 03/10/23 23:21 Pulse Oximetry 98 03/10/23 23:21 Pulse 143 H 03/10/23 23:21 Respiratory Rate 21 03/10/23 23:21 Blood Pressure 157/79 H 03/10/23 23:21 Blood Pressure Position Sitting 03/10/23 23:21 Pulse Oximetry 98 03/10/23 23:21 Oxygen Delivery Method Room Air 03/10/23 23:21 Oxygen Flow Rate 0 03/10/23 23:21 Pain Level 0 03/10/23 23:21 Critical Care Time Critical Care Time Critical Care Time: Yes Total Critical Care Time: 45 Attestation: Upon my evaluation, this patient had a high probability of imminent or life- threatening deterioration, which required my direct attention, intervention, and personal management. I have personally provided 45 minutes of critical care time exclusive of time spent on separately billable procedures. Time includes review of laboratory data, radiology results, discussion with consultants, and monitoring for potential decompensation. Interventions were performed as documented.
[2023-03-10] MEDS: Metoprolol 5 MG/5 ML VIAL IVP (23:37)
[2023-03-10 23:40] LABS: Abs Immature Grans 0.09 10^3/uL (0.0-0.06); Absolute Basophil Count 0.08 10^3/uL (0.0-0.2); Absolute Eosinophil Count 0.28 10^3/uL (0.0-0.7); Absolute Lymphocyte Count 2.93 10^3/uL (1.2-3.4); Absolute Monocyte Count 0.84 10^3/uL (0.1-0.8); Absolute Neutrophil Count 5.49 10^3/uL (1.2-6.7); Basophils % 0.8; Eosinophils % 2.9; HCT 47.4 % (40.0-50.0); HGB 15.8 g/dL (13.5-17.5); Immature Grans % 0.9; Lymphocytes % 30.2; MCH 30.8 pg (27.0-33.0); MCHC 33.3 % (32.0-36.0); MCV 92 fL (80-95); Monocytes % 8.7; Neutrophils % 56.5; Platelet Count 203 10^3/uL (130-400); RBC 5.13 10^6/uL (4.36-5.78); RDW 12.4 % (11.8-14.1); RDW-SD 42.6 fL; WBC 9.71 10^3/uL (4.4-10.8)
[2023-03-10 23:54] LABS: INR 1.1 (0.9-1.1); PTT Activated 28.9 sec (21.5-31.9)
[2023-03-11 00:04] LABS: ALT 27 U/L (16-63); AST 26 U/L (15-37); Albumin 4.1 g/dL (3.4-5.0); Alkaline Phosphatase 117 U/L (46-116); BUN 39 mg/dL (7-18); Bilirubin, Total 0.5 mg/dL (0.2-1.0); CREATININE 1.8 mg/dL (0.70-1.30); Calcium 9.2 mg/dL (8.5-10.1); Chloride 103 mmol/L (98-107); Estimated GFR 36.66 (mL/min/1.73m2); Glucose 106 mg/dL (74-106); Sodium 139 mmol/L (136-145); TSH (W/Ref FT4) 11.19 uIU/mL (0.36-3.74); Total Protein 7.7 g/dL (6.4-8.2); Troponin I < 50 ng/L (<or=60)
[2023-03-11 00:08] VITALS: BP 149/72; PULSE 124
[2023-03-11] MEDS: Metoprolol 5 MG/5 ML VIAL IVP (00:08)
[2023-03-11 00:40] LABS: FREE T4 0.96 ng/dL (0.76-1.46)
[2023-03-11] MEDS: Normal Saline 500 ML IV (01:05)
[2023-03-11 02:39] VITALS: BP 135/79; PULSE 88; RESP 16; O2SAT 96
[2023-03-11 02:59] LABS: Troponin I < 50 ng/L (<or=60)
== END 2023-03-11 03:37 | disposition home or self-care (01) ==
PROVIDERS: Emergency Provider Student in an Organized Health Care Education/Training Program; PCP Neuromusculoskeletal Medicine & OMM
DX: I48.20 Chronic atrial fibrillation, unspecified (principal); R00.2 Palpitations; R53.1 Weakness; Z79.01 Long term (current) use of anticoagulants; I25.2 Old myocardial infarction; I13.10 Hypertensive heart and chronic kidney disease without heart failure, with stage 1 through stage 4 chronic kidney disease, or unspecified chronic kidney disease; N18.9 Chronic kidney disease, unspecified; E86.0 Dehydration
CPT/HCPCS: 36415; 80053; 93005; 96361; 96374; 96376; 99291; 84439; 84443; 84484; 85025; 85610; 85730; 93010

== ENCOUNTER → 2023-04-01 09:01 | Outpatient (BNVA) | payer MEDICARE, SELFPAY | PROVIDERS: PCP Neuromusculoskeletal Medicine & OMM; Visit Provider Internal Medicine Cardiovascular Disease | DX: I48.0 Paroxysmal atrial fibrillation (principal); Z79.01 Long term (current) use of anticoagulants; I25.2 Old myocardial infarction; I25.10 Atherosclerotic heart disease of native coronary artery without angina pectoris; Z95.5 Presence of coronary angioplasty implant and graft; I10 Essential (primary) hypertension | CPT/HCPCS: 99214 ==

== ENCOUNTER 2023-09-13 08:12 | Emergency (ER) | payer MEDICARE, SELFPAY ==
[2023-09-13] VITALS (35 sets, daily range): BP systolic 168–210; BP diastolic 63–98; PULSE 53–118; RESP 12–34; TEMP 37.5; O2SAT 93–100
--- NOTE | 2023-09-13 08:15 | RT.EKG_ITS ---
APPROVED REPORT Exam: Resting ECG Reason for Exam: DIZZNESS, HTN Patient Location: E HR:53 bpm ECG Measurements Heart Rate 53 AXIS LA 151 P 48 QRSd 103 QRS -9 QT 438 T 46 QTc 413 Conclusion Sinus bradycardia...rate< 60 Changed from aflutter last 03/10/23
--- NOTE | 2023-09-13 08:41 | ED.GENADUL_ITS ---
Discharge Plan Disposition Patient Disposition: Home Condition: Improving Discharge Details Clinical Impression: Dizziness, nonspecific, Hypertension, Chronic kidney disease, stage 3 Primary Care Provider: Calixto Canales ED Provider: Tyrell Alexis Home Meds and New Rx's Prescriptions: New meclizine 12.5 mg tablet 12.5 - 25 mg PO TID PRN (Reason: dizziness) Qty: 20 0RF Continued metoprolol succinate 25 mg tablet extended release 24 hr 12.5 mg PO DAILY polyethylene glycol 3350 [Miralax] 17 gram powder in packet 17 g PO DAILY nitroglycerin [Nitrostat] 0.4 mg tablet, sublingual 0.4 mg sublingual Q5M PRN Rx Instructions: do not exceed 3 doses per episode pantoprazole 40 mg tablet,delayed release (DR/EC) 40 mg PO DAILY apixaban 5 mg tablet 2.5 mg PO BID Changed losartan 50 mg tablet 100 mg PO DAILY Qty: 0 0RF hydrochlorothiazide 12.5 mg tablet 25 mg PO DAILY Qty: 30 0RF Discharge Instructions Instructions: Hypertension (ED), Dizziness (ED) Additional Instructions: Please double your hydrochlorothiazide and take a total of 100 mg of losartan daily. Please continue to monitor your blood pressure daily and keep a record of this. If you have any severe worsening or new symptoms return to the emergency department for reassessment otherwise it is very important that you follow-up with your primary care provider for reassessment of your blood pressure along with any further medication changes as needed. Referrals: Calixto Canales [Primary Care Provider] - 1 week Discharge Data Discharge Date/Time-TO BE ENTERED AT DEPARTURE: 09/13/23 13:12 Medical Decision Making Patient presenting to the emergency department for chief complaint of dizziness. Patient reports that the dizziness woke him up around 3 AM. He denies any chest pain or shortness of breath, does state that he had COVID 2 months ago but is still having intermittent cough, had some chills/sweats this morning during dizzy episode but denies all other symptoms, no nausea or vomiting, no headache no peripheral symptoms. Patient did state that due to the persistent dizziness he checked his blood pressure and noted that it was elevated. He does state that he recently had his metoprolol reduced due to bradycardia. EMS did give patient his normal medications this morning prior to arrival. Physical exam is noncontributory with no abnormal neurological findings, no nystagmus, normal cardiac and respiratory exam. Patient is in no signs of distress or discomfort. Patient does report that he has a history of vertigo and was on meclizine in t he past but has not taken this in a while. Patient states it has been so long ago that he does not know if this is his typical vertigo or not. We will plan on performing EKG, labs, and CT imaging. Given no obvious findings on exam will give patient meclizine pending results. We will continue to monitor blood pressure and patient did report that he has not quite taken his hydrochlorothiazide so we will give him his normal prescribed dose and monitor. Please see physician interpretation for full interpretation of EKG but upon my review patient is in sinus rhythm, bradycardic with a rate of 53 otherwise noncontributory EKG. No acute signs of STEMI criteria met. We will continue to monitor Reviewed patient's labs and CBC is overall nondiagnostic, negative troponin, negative for COVID flu RSV, negative urine, CMP does show a elevated BUN and creatinine with a GFR of 39 but this is near patient's baseline. Labs are otherwise unremarkable. Did discuss with patient small but relative risk of contrast dye and decreased renal function. After discussion of this with patient for CTA head we will proceed with imaging and give small fluid bolus pending results. Reviewed chest x-ray and CTA imaging that shows no acute emergent findings. Reassessed patient and patient did state significant improvement of symptoms. Did ambulate patient after fluid bolus and he was able to ambulate safely through the emergency department. Patient remained hypertensive with blood pressure 190s over upper 90s and spite of his normal medications. Did increase patient's hydrochlorothiazide to 25 mg daily and losartan to 100 mg daily up from his 75mg. patient to otherwise monitor blood pressure and follow-up with primary care provider or return for new or worsening symptoms. After discussion of diagnosis and plan of care patient has no further needs, questions, or concerns and states clear understanding to return to the emergency department for any worsening symptoms. This documentation was generated using [employer] system, please disregard any oddities of phrase or misspellings.. Imaging Data Radiologic Study: Imaging: CT Scan Radiologist's impression: Exam(s) PROCEDURE INFORMATION: Exam: CTA Head With Contrast, Arteriography Exam date and time: 09/13/2023 10:36 AM Age: 82 years old Clinical indication: Vertigo TECHNIQUE: Imaging protocol: Computed tomographic angiography of the head with contrast. Exam focused on the arteries. 3D rendering (Not supervised by radiologist): MIP and/or 3D reconstructed images were created by the technologist. Contrast material: OMNIPAQUE 350; Contrast volume: 85 ml; Contrast route: INTRAVENOUS (IV); COMPARISON: No relevant prior studies available. FINDINGS: ANTERIOR CIRCULATION: Right internal carotid artery: Intracranial segment is patent with no significant stenosis. No aneurysm. Right middle cerebral artery: No occlusion or significant stenosis. No aneurysm. Right anterior cerebral artery: No occlusion or significant stenosis. No aneurysm. Left internal carotid artery: Intracranial segment is patent with no significant stenosis. No aneurysm. Left middle cerebral artery: No occlusion or significant stenosis. No aneurysm. Left anterior cerebral artery: No occlusion or significant stenosis. No aneurysm. POSTERIOR CIRCULATION: Right vertebral artery: No occlusion or significant stenosis. No aneurysm. Left vertebral artery: No occlusion or significant stenosis. No aneurysm. Basilar artery: No occlusion or significant stenosis. No aneurysm. Right posterior cerebral artery: No occlusion or significant stenosis. No aneurysm. Left posterior cerebral artery: No occlusion or significant stenosis. No aneurysm. Brain: No definite mass, mass effect, or midline shift. Cerebral ventricles: No ventriculomegaly. Bones/joints: Unremarkable. No acute fracture. Soft tissues: Unremarkable. IMPRESSION: No large vessel stenosis or occlusion. PROCEDURE INFORMATION: Exam: CTA Neck With Contrast Exam date and time: 09/13/2023 10:36 AM Age: 82 years old Clinical indication: Vertigo TECHNIQUE: Imaging protocol: Computed tomographic angiography of the neck with contrast. Exam focused on the cervical segments of the vasculature. 3D rendering (Not supervised by radiologist): MIP and/or 3D reconstructed images were created by the technologist. Contrast material: OMNIPAQUE 350; Contrast volume: 85 ml; Contrast route: INTRAVENOUS (IV); COMPARISON: CT THORAX CTA 01/15/2022 9:03 PM FINDINGS: Right common carotid artery: No stenosis. No dissection or occlusion. Right internal carotid artery: Less than 50% narrowing at the proximal right ICA with calcified atherosclerotic plaque. Right external carotid artery: No occlusion or stenosis of the origin. Left common carotid artery: No stenosis. No dissection or occlusion. Left internal carotid artery: No stenosis of the extracranial segment. No dissection or occlusion. Left external carotid artery: No occlusion or stenosis of the origin. Right vertebral artery: No stenosis. No dissection or occlusion. Left vertebral artery: No stenosis. No dissection or occlusion. Soft tissues: Normal. No significant soft tissue swelling. Bones/joints: No acute fracture. IMPRESSION: Less than 50% narrowing at the proximal right ICA with calcified atherosclerotic plaque. REFERENCES: NASCET CRITERIA. The degree of stenosis in the cervical segment of the internal carotid artery is based on NASCET criteria. Normal is no stenosis. Mild is less than 50% stenosis. Moderate is 50-69% stenosis. Severe is 70% to 99% stenosis. Total occlusion is no detectable patent lumen. Dictated and Authenticated by: Elmira Perez MD. Radiologic Study #2: Imaging: X-Ray Radiologist's impression: Exam(s) PROCEDURE INFORMATION: Exam: XR Chest Exam date and time: 09/13/2023 10:55 AM Age: 82 years old Clinical indication: Other: Dizziness TECHNIQUE: Imaging protocol: Radiologic exam of the chest. Views: 2 views. COMPARISON: CR XR CHEST 2V PA LATERAL 06/28/2022 11:13 AM FINDINGS: Lungs: Unremarkable. No consolidation. Pleural spaces: Unremarkable. No pleural effusion. No pneumothorax. Heart/Mediastinum: Unremarkable. No cardiomegaly. Bones/joints: Unremarkable. IMPRESSION: No acute findings. Dictated and Authenticated by: Elmira Perez MD. Lab Data Lab results reviewed: Yes I reviewed the patient's lab results. HPI General Mode of arrival: EMS . Date/Time Provider Initiated Documentation: 09/13/23 08:15 . Limitations to Documentation: no limitations . Information obtained by: patient, EMS and RN notes reviewed . History of Present Illness 82 year old M presents to the emergency department with the chief complaint of Dizziness, hypertension, described as moderate and similar to prior episodes, Patient started experiencing this hour(s) (5) and it has been constant. No relieving factors improve symptom(s), No exacerbating factors reported . Patient notes no other symptoms.. Patient did receive the following treatments prior to arrival, other (Took morning medications) Related Data Home Medications Medication Instructions Recorded Confirmed nitroglycerin 0.4 mg sublingual 0.4 mg sublingual Q5M PRN 09/29/20 09/13/23 tablet (Nitrostat) polyethylene glycol 3350 17 gram 17 g PO DAILY 10/03/20 09/13/23 oral powder packet (Miralax) pantoprazole 40 mg tablet,delayed 40 mg PO DAILY 01/18/22 09/13/23 release apixaban 5 mg tablet 2.5 mg PO BID 09/24/22 09/13/23 metoprolol succinate 25 mg 12.5 mg PO DAILY 09/24/22 09/13/23 tablet,extended release 24 hr hydrochlorothiazide 12.5 mg tablet 25 mg (2 x 12.5 mg) PO DAILY #30 09/13/23 09/13/23 tabs losartan 50 mg tablet 100 mg (2 x 50 mg) PO DAILY #0 tabs 09/13/23 09/13/23 meclizine 12.5 mg tablet 12.5 - 25 mg (1 - 2 x 12.5 mg) PO 09/13/23 TID PRN dizziness #20 tabs Previous Rx's Medication Instructions Recorded hydrochlorothiazide 12.5 mg tablet 25 mg (2 x 12.5 mg) PO DAILY #30 09/13/23 tabs losartan 50 mg tablet 100 mg (2 x 50 mg) PO DAILY #0 tabs 09/13/23 meclizine 12.5 mg tablet 12.5 - 25 mg (1 - 2 x 12.5 mg) PO 09/13/23 TID PRN dizziness #20 tabs Allergies Allergy/AdvReac Type Severity Reaction Status Date / Time fexofenadine [From Jeanette] Allergy Unknown Verified 09/13/23 08:20 General Stated Complaint: Dizzy/Sync ROSINA: 3 Review of Systems Constitutional Constitutional: Reports chills, Denies fever(s), Denies headache(s) and Denies malaise ENT Ears, Nose, Mouth, and Throat: Reports dizziness, Denies headache(s), Denies nasal congestion and Denies sore throat Cardiovascular Cardiovascular: Reports as per HPI, Denies chest pain, Denies chest pain with activity, Denies syncope, Denies irregular heart rhythm, Denies leg edema, Reports lightheadedness, Denies palpitations and Denies dyspnea Respiratory Respiratory: Denies cough, Denies hemoptysis and Denies dyspnea Gastrointestinal Gastrointestinal: Denies abdominal pain, Denies nausea and Denies vomiting Neurologic Neurologic: Reports as per HPI, Reports dizziness, Denies syncope and Denies headache(s) Psychiatric Psychiatric: Denies anxiety Endocrine Endocrine: Denies cold intolerance, Denies heat intolerance and Denies palpitations PFSH All Active Problems (Updated 09/13/23 @ 12:53 by Tyrell Alexis NP) Dizziness, nonspecific (Acute) Atherosclerotic cardiovascular disease (Acute) Atrial fibrillation (Chronic) DVT prophylaxis (Acute) Hypertension (Chronic) Aortic dilatation (Acute) Chronic kidney disease, stage 3 (Acute) Non-ST elevation MA (NSTEMI) (Acute) Spermatocele (Acute) Renal cyst (Acute) Gassiness (Acute) Hernia of abdominal cavity (Acute) RLQ abdominal pain (Acute) Medical History Spermatocele Kidney disease Constipation Surgical History History of esophagogastroduodenoscopy (EGD) 05/04/2013. gastritis, hiatal hernia. H/O colonoscopy 05/04/13. Negative exam. 2001. Negative exam. History of hernia repair Social History Smoking/Tobacco Use Status: Never Smoking risk assessment performed?: Yes Alcohol Intake: current Alcohol Intake frequency: holidays/special occasions only Drug use: Never Substance use type: does not use Current gender identity: male Do you feel safe at home: Yes Do you feel safe in your relationship?: Yes Additional Social history: Lives alone [address] in [place]. 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 Recently had to put into long-term, [facility], due to progressive Parkinsons after caring for her for years. Son and family in [place]. Exam Const General: cooperative, comfortable, no acute distress, not diaphoretic and not ill appearing Nutritional Appearance: average body habitus Orientation: alert, awake and oriented x3 Limitations: mental status not altered [facility] Head: normal to inspection Mouth: oral mucosae normal and moist mucous membranes Throat: posterior oropharynx normal Eyes Visual Nj: normal visual nj by confrontation Alignment and Position: alignment normal Periorbital: periorbital findings normal Eyelids: eyelids normal Pupils: PERRL EOM: EOM intact bilaterally Neck Neck: normal visual inspection, full ROM, trachea midline, supple and no anterior neck swelling Carotids: normal carotid upstroke and no bruits Chest Chest: normal inspection of the chest Resp Effort & Inspection: normal respiratory effort and able to speak in complete sentences Auscultation: clear to auscultation bilaterally Cardio Jugular venous pressure: no JVD Palpation: normal PMI Rate: regular rate Rhythm: regular rhythm Heart Sounds: S1 normal, S2 normal, no click, no gallops, no murmurs and no rubs Bruits: no abdominal aortic bruits and no carotid bruits Pulses: radial pulses present bilaterally 2+ GI Inspection: normal to inspection Palpation: soft, no aortic enlargement, no pulsatile masses and nontender Auscultation: normal bowel sounds Skin General skin exam: no rashes or lesions noted Neuro General: patient alert, patient awake, patient oriented x3, tone normal, moves all extremities and CN's II-XI intact bilaterally Cognition: normal cognition Speech: speech normal Motor: muscle tone normal throughout, no pronator drift and no movement abnormalities noted Sensory Exam: no sensory deficits noted Coordination: Does not sway with eyes open
[2023-09-13] MEDS: Meclizine 12.5 MG TAB PO (08:59)
[2023-09-13 09:08] LABS: Abs Immature Grans 0.12 10^3/uL (0.0-0.06); Absolute Basophil Count 0.06 10^3/uL (0.0-0.2); Absolute Eosinophil Count 0.05 10^3/uL (0.0-0.7); Absolute Monocyte Count 0.32 10^3/uL (0.1-0.8); Absolute Neutrophil Count 9.19 10^3/uL (1.2-6.7); Basophils % 0.6; Eosinophils % 0.5; HCT 45.6 % (40.0-50.0); HGB 15.1 g/dL (13.5-17.5); Immature Grans % 1.1; Lymphocytes % 8.5; MCH 30.4 pg (27.0-33.0); MCHC 33.1 % (32.0-36.0); MCV 92 fL (80-95); MPV 11.1 fL (8.0-11.0); Neutrophils % 86.3; Platelet Count 182 10^3/uL (130-400); RBC 4.97 10^6/uL (4.36-5.78); RDW 12.3 % (11.8-14.1); RDW-SD 41.6 fL; WBC 10.64 10^3/uL (4.4-10.8)
[2023-09-13 09:25] LABS: ALT 25 U/L (16-63); AST 19 U/L (15-37); Albumin 3.7 g/dL (3.4-5.0); Alkaline Phosphatase 100 U/L (46-116); Anion Gap 5.5 mmol/L (3-11); BUN 33 mg/dL (7-18); Bilirubin, Total 0.5 mg/dL (0.2-1.0); CO2 27.5 mmol/L (21.0-32.0); CREATININE 1.7 mg/dL (0.70-1.30); Calcium 9.2 mg/dL (8.5-10.1); Chloride 104 mmol/L (98-107); Estimated GFR 39.26 (mL/min/1.73m2); Glucose 145 mg/dL (74-106); Magnesium 2.1 mg/dL (1.8-2.4); Potassium 4.5 mmol/L (3.5-5.1); Sodium 137 mmol/L (136-145); Total Protein 7.2 g/dL (6.4-8.2); Troponin I < 50 ng/L (<or=60)
[2023-09-13 09:39] LABS: Bilirubin Negative (Negative); Blood Negative (Negative); Clarity Clear (Clear); Glucose Negative (Negative); Ketones Negative (Negative); Leukocyte Esterase Negative (Negative); Nitrite Negative (Negative); Urobilinogen 0.2 mg/dL (Up to 0.2)
[2023-09-13 09:41] LABS: COVID-19 PCR Negative (Negative); Influenza A PCR Negative (Negative); Influenza B PCR Negative (Negative); RSV PCR Negative (Negative)
[2023-09-13 09:42] LABS: Source Nasopharynx
--- NOTE | 2023-09-13 09:45 | DI.CT_ITS ---
Exam(s) CT BRAIN NECK CTA EXAM: CT BRAIN NECK CTA CLINICAL HISTORY: Dizziness. TECHNIQUE: Imaging Protocol: Axial CT angiography was performed with multi-slice acquisition and mu lti-planar and/or 3D reconstructions. CONTRAST MATERIAL: Intravenous: Omnipaque 350 contrast volume:85 mL COMPARISON: There are no priors for comparison. FINDINGS: CT Head W/O and W: Ventricles and Extra axial spaces: Normal in size and morphology for the patient's age. Hemorrhage: None. Cerebral parenchyma: There are areas of decreased attenuation in the white matter consistent with sma ll vessel ischemic disease. No acute midline shift or mass effect. Midline shift: None. Brainstem/Cerebellum: Normal. Calvarium: Normal. Visualized Paranasal sinuses/Mastoids: Clear. Soft Tissues: Unremarkable. Enhancement: Unremarkable. CTA Neck W: Common Carotid: Right: No dissection, occlusion or significant stenosis. Left: No dissection, occlusion or significant stenosis. External Carotid: Right: No occlusion or significant stenosis. Left: No occlusion or significant stenosis. Internal Carotid: Right: No dissection or occlusion. There is atherosclerosis at the origin of the right internal car otid artery. There is less than 50 percent stenosis as result. Left: No dissection, occlusion or significant stenosis. Atherosclerosis at the origin of the left in ternal carotid artery. Vertebral Artery: Right: No dissection, occlusion or significant stenosis. Left: No dissection, occlusion or significant stenosis. Lung Apices: Normal. Bones: Within normal limits for the patient's age. Soft Tissues: Normal. Thyroid gland: Unremarkable. CTA Brain W: Internal Carotid Arteries: There is atherosclerosis seen in the cavernous portions but no significant stenosis, occlusion or aneurysm is seen. Anterior Cerebral Arteries: Right: No aneurysm, occlusion or significant stenosis. Left: No aneurysm, occlusion or significant stenosis. Middle Cerebral Arteries: Right: No aneurysm, occlusion or significant stenosis. Left: No aneurysm, occlusion or significant stenosis. Posterior Cerebral Arteries: Right: No aneurysm, occlusion or significant stenosis. Left: No aneurysm, occlusion or significant stenosis. Vertebral Arteries: Right: No aneurysm, occlusion or significant stenosis. There is atherosclerosis of the distal right vertebral artery. Left: No aneurysm, occlusion or significant stenosis. Basilar Artery: No aneurysm, occlusion or significant stenosis. IMPRESSION: 1. No large vessel occlusion or significant stenosis on the CT angiography of the head. 2. No acute intracranial process. 3. No occlusion or significant stenosis on the CT angiography of the neck. 4. Less than 50 percent stenosis of the proximal right internal carotid artery secondary to a atheros clerotic calcific plaque. RADIATION DOSE DELIVERED: Total DLP DATA REPOSITORY: All CT scans at this facility are submitted to the National Radiology Data Registry (NRDR) Dose Index Registry (DIR) with the [employer] (ACR). RADIATION OPTIMIZATION: All CT scans at this facility use at least one of these dose optimization te chniques: automated exposure control; mA and/or kV adjustment per patient size (includes targeted exa ms where dose is matched to clinical indication); or iterative reconstruction.
--- NOTE | 2023-09-13 09:45 | DI.RAD_ITS ---
Exam(s) XR CHEST 2V PA LATERAL EXAM: XR CHEST 2V PA LATERAL CLINICAL HISTORY: dizziness, cough TECHNIQUE: 2D digital imaging was performed of the chest. Images were obtained. PA and lateral v iews were obtained. COMPARISON: CR XR CHEST 2V PA LATERAL from 06/28/2022 FINDINGS: MEDIASTINUM: Normal. HEART: Normal. PULMONARY VASCULATURE: Normal. LUNGS: Clear. PLEURAL SPACE: No pleural effusion or pneumothorax. BONE:Within normal limits for the patient's age. OTHER FINDINGS:Normal. IMPRESSION: No acute pulmonary findings. DATA REPOSITORY: RADIATION DOSE DELIVERED:
[2023-09-13] MEDS: Normal Saline 250 ML IV (10:09)
[2023-09-13] MEDS: Normal Saline - Diluent 50 ML VIAL IJ (10:56)
[2023-09-13] MEDS: Normal Saline Flush 10 ML SYR IVP (10:57)
[2023-09-13] MEDS: Omnipaque 350 MG/ML 100 ML BTL 85 ML IJ (10:57)
--- NOTE | 2023-09-13 11:23 | DI.VRAD_ITS ---
PROCEDURE INFORMATION: Exam: XR Chest Exam date and time: 09/13/2023 10:55 AM Age: 82 years old Clinical indication: Other: Dizziness TECHNIQUE: Imaging protocol: Radiologic exam of the chest. Views: 2 views. COMPARISON: CR XR CHEST 2V PA LATERAL 06/28/2022 11:13 AM FINDINGS: Lungs: Unremarkable. No consolidation. Pleural spaces: Unremarkable. No pleural effusion. No pneumothorax. Heart/Mediastinum: Unremarkable. No cardiomegaly. Bones/joints: Unremarkable. IMPRESSION: No acute findings. Dictated and Authenticated by: Elmira Perez MD. Ordering:KOKI Santillan MD
--- NOTE | 2023-09-13 11:32 | DI.VRAD_ITS ---
PROCEDURE INFORMATION: Exam: CTA Head With Contrast, Arteriography Exam date and time: 09/13/2023 10:36 AM Age: 82 years old Clinical indication: Vertigo TECHNIQUE: Imaging protocol: Computed tomographic angiography of the head with contrast. Exam focused on the arteries. 3D rendering (Not supervised by radiologist): MIP and/or 3D reconstructed images were created by the technologist. Contrast material: OMNIPAQUE 350; Contrast volume: 85 ml; Contrast route: INTRAVENOUS (IV); COMPARISON: No relevant prior studies available. FINDINGS: ANTERIOR CIRCULATION: Right internal carotid artery: Intracranial segment is patent with no significant stenosis. No aneurysm. Right middle cerebral artery: No occlusion or significant stenosis. No aneurysm. Right anterior cerebral artery: No occlusion or significant stenosis. No aneurysm. Left internal carotid artery: Intracranial segment is patent with no significant stenosis. No aneurysm. Left middle cerebral artery: No occlusion or significant stenosis. No aneurysm. Left anterior cerebral artery: No occlusion or significant stenosis. No aneurysm. POSTERIOR CIRCULATION: Right vertebral artery: No occlusion or significant stenosis. No aneurysm. Left vertebral artery: No occlusion or significant stenosis. No aneurysm. Basilar artery: No occlusion or significant stenosis. No aneurysm. Right posterior cerebral artery: No occlusion or significant stenosis. No aneurysm. Left posterior cerebral artery: No occlusion or significant stenosis. No aneurysm. Brain: No definite mass, mass effect, or midline shift. Cerebral ventricles: No ventriculomegaly. Bones/joints: Unremarkable. No acute fracture. Soft tissues: Unremarkable. IMPRESSION: No large vessel stenosis or occlusion. PROCEDURE INFORMATION: Exam: CTA Neck With Contrast Exam date and time: 09/13/2023 10:36 AM Age: 82 years old Clinical indication: Vertigo TECHNIQUE: Imaging protocol: Computed tomographic angiography of the neck with contrast. Exam focused on the cervical segments of the vasculature. 3D rendering (Not supervised by radiologist): MIP and/or 3D reconstructed images were created by the technologist. Contrast material: OMNIPAQUE 350; Contrast volume: 85 ml; Contrast route: INTRAVENOUS (IV); COMPARISON: CT THORAX CTA 01/15/2022 9:03 PM FINDINGS: Right common carotid artery: No stenosis. No dissection or occlusion. Right internal carotid artery: Less than 50% narrowing at the proximal right ICA with calcified atherosclerotic plaque. Right external carotid artery: No occlusion or stenosis of the origin. Left common carotid artery: No stenosis. No dissection or occlusion. Left internal carotid artery: No stenosis of the extracranial segment. No dissection or occlusion. Left external carotid artery: No occlusion or stenosis of the origin. Right vertebral artery: No stenosis. No dissection or occlusion. Left vertebral artery: No stenosis. No dissection or occlusion. Soft tissues: Normal. No significant soft tissue swelling. Bones/joints: No acute fracture. IMPRESSION: Less than 50% narrowing at the proximal right ICA with calcified atherosclerotic plaque. REFERENCES: NASCET CRITERIA. The degree of stenosis in the cervical segment of the internal carotid artery is based on NASCET criteria. Normal is no stenosis. Mild is less than 50% stenosis. Moderate is 50-69% stenosis. Severe is 70% to 99% stenosis. Total occlusion is no detectable patent lumen. Dictated and Authenticated by: Elmira Perez MD. Ordering:KOKI Santillan MD
[2023-09-13] MEDS: hydroCHLOROthiazide 12.5 MG TAB PO (12:39)
[2023-09-13] MEDS: Losartan 25 MG TAB PO (12:39)
== END 2023-09-13 13:12 | disposition home or self-care (01) ==
PROVIDERS: Emergency Provider Nurse Practitioner Family; PCP Neuromusculoskeletal Medicine & OMM
DX: R42 Dizziness and giddiness (principal); I12.9 Hypertensive chronic kidney disease with stage 1 through stage 4 chronic kidney disease, or unspecified chronic kidney disease; N18.30 Chronic kidney disease, stage 3 unspecified; Z79.01 Long term (current) use of anticoagulants; Z20.822 Contact with and (suspected) exposure to COVID-19
CPT/HCPCS: 70496; 70498; 80053; 87637; 93005; 96360; 96361; 99285; 71046; 81003; 83735; 84484; 85025; 93010; 99284; J3490

== ENCOUNTER → 2023-09-13 08:13 | Emergency (ER) | payer MEDICARE, SELFPAY ==
[2023-09-13 08:11] VITALS: BP 209/99; PULSE 60; RESP 17; TEMP 36.5; O2SAT 98
[2023-09-13 08:42] VITALS: RESP 14
--- NOTE | 2023-09-13 11:25 | NUR.NOTE ---
Duplicate entry on tracker. Nursing Note:
== END | disposition other institution (70) ==
LOC: ER 10:57
PROVIDERS: Emergency Provider Nurse Practitioner Family; PCP Neuromusculoskeletal Medicine & OMM
DX: R42 Dizziness and giddiness (principal); I10 Essential (primary) hypertension; N18.30 Chronic kidney disease, stage 3 unspecified
CPT/HCPCS: 99285; 99284

== ENCOUNTER → 2023-09-23 14:09 | Outpatient (BNVA) | payer MEDICARE, SELFPAY | PROVIDERS: PCP Neuromusculoskeletal Medicine & OMM; Visit Provider Internal Medicine Cardiovascular Disease | DX: I48.0 Paroxysmal atrial fibrillation (principal); R79.89 Other specified abnormal findings of blood chemistry; I25.10 Atherosclerotic heart disease of native coronary artery without angina pectoris; I10 Essential (primary) hypertension | CPT/HCPCS: 99214 ==

== ENCOUNTER → 2023-10-07 00:53 | Outpatient (CLI) | payer MEDICARE, SELFPAY ==
--- NOTE | 2023-10-07 08:15 | DI.US_ITS ---
Exam(s) US SCROTUM EXAM: US SCROTUM CLINICAL HISTORY: monitoring spermatoceles,N43.40 TECHNIQUE: Ultrasound of the testes performed using grayscale, color, and Doppler imaging. COMPARISON: US US RENAL from 10/07/2023 FINDINGS: RIGHT HEMISCROTUM: The right testicle exhibits normal size and echo architecture with no evidence of intratesticular mas s. Vascular flow was demonstrated within the right testicle, including arterial waveforms. There is a large right epididymal head cyst measuring 6 x 4 x 5 cm. There is no ipsilateral hydrocele nor varicocele. LEFT HEMISCROTUM: The left testicle exhibits normal size and echo architecture with no evidence of intratesticular mass . Vascular flow is demonstrated within the left testicle, including arterial waveforms. There is a large left epididymal head cyst measuring similar size approximately 6 x 4 x 5 cm There is a small left hydrocele evident. No obvious varicocele. IMPRESSION: 1. No evidence of testicular mass nor testicular torsion. 2. However, there are large bilateral epididymal head cysts of equal size, both measuring approximate ly 6 x 4 x 5 cm. 3. There is a small left hydrocele. DATA REPOSITORY:
--- NOTE | 2023-10-07 08:15 | DI.US_ITS ---
Exam(s) US RENAL EXAM: US RENAL CLINICAL HISTORY: monitoring renal cysts,N28.1. TECHNIQUE: Wilson scale, color and spectral Doppler were used. COMPARISON: US US RENAL from 10/08/2022 FINDINGS: Renal size in cm: Right: . Left: . Echogenicity: Normal. Hydronephrosis: No. Cyst or mass: There are right renal cysts. The largest measures 2.3 x 2.1 cm. This is unchanged com pared to the prior examination. There is a 0.7 cm cyst seen in the left kidney. Nephrolithiasis: No. Other findings: There is an echogenic parenchymal focus in the left kidney. Bladder:Normal. Ureteral jets: Right: Visualized and unremarkable. Left: Visualized and unremarkable. Prevoid vol:269 cc Postvoid vol:42 cc Prostate: 30 cc Renal color flow: Symmetric and within normal limits. IMPRESSION: 1. Stable bilateral renal cysts. 2. Mildly enlarged prostate gland. Small postvoid urinary bladder volume. DATA REPOSITORY:
== END ==
PROVIDERS: PCP Neuromusculoskeletal Medicine & OMM; Visit Provider Nurse Practitioner Gerontology
DX: N28.1 Cyst of kidney, acquired; N50.3 Cyst of epididymis
CPT/HCPCS: 76770; 99213; 76870

== ENCOUNTER → 2023-12-25 13:21 | Outpatient (BNVA) | payer MEDICARE, SELFPAY | PROVIDERS: PCP Nurse Practitioner Family; Referring Provider Nurse Practitioner Family; Visit Provider Internal Medicine Cardiovascular Disease | DX: I48.0 Paroxysmal atrial fibrillation (principal); I25.10 Atherosclerotic heart disease of native coronary artery without angina pectoris; I10 Essential (primary) hypertension | CPT/HCPCS: 99213 ==

== ENCOUNTER 2024-10-05 01:38 | Outpatient (CLI) | payer MEDICARE, SELFPAY ==
--- NOTE | 2024-10-05 07:15 | DI.US_ITS ---
Exam(s) US RENAL EXAM: US RENAL CLINICAL HISTORY: monitoring renal cysts,n28.1. TECHNIQUE: Wilson scale, color and spectral Doppler were used. COMPARISON: US US RENAL from 10/07/2023 FINDINGS: Renal size in cm: Right: 8.8. Left: 10.0. Echogenicity: Normal. Hydronephrosis: No. Cyst or mass: There are bilateral simple renal cysts. The largest on the right is in the superior po le and measures 2.1 cm. This is grossly unchanged. No suspicious right renal cysts. There are cyst s on the left kidney. The largest measures 1.1 cm. There is an adjacent echogenic shadowing focus a gain seen. This is unchanged. Nephrolithiasis: Please see above section under ???cyst or mass???. Other findings: None. Bladder:Normal. Ureteral jets: Right: Visualized and unremarkable. Left: Visualized and unremarkable. Prevoid vol:78 cc Postvoid vol:1 cc Prostate: 36 cc Renal color flow: Symmetric and within normal limits. IMPRESSION: 1. Simple bilateral renal cysts. No follow-up is recommended. 2. Stable echogenic focus in the left kidney which may represent a nonobstructing stone. 3. Enlarged prostate gland. DATA REPOSITORY:
== END 2024-10-05 01:58 ==
LOC: DI 01:38
PROVIDERS: PCP Nurse Practitioner Family; Visit Provider Nurse Practitioner Gerontology
DX: N28.1 Cyst of kidney, acquired (principal)
CPT/HCPCS: 76770

== ENCOUNTER → 2025-04-26 14:37 | Outpatient (BNVA) | payer MEDICARE, SELFPAY | PROVIDERS: Visit Provider Nurse Practitioner Gerontology | DX: N28.1 Cyst of kidney, acquired (principal); N43.40 Spermatocele of epididymis, unspecified; K59.00 Constipation, unspecified; R79.89 Other specified abnormal findings of blood chemistry; R35.1 Nocturia; R39.9 Unspecified symptoms and signs involving the genitourinary system | CPT/HCPCS: 99214; 51798 ==

== ENCOUNTER → 2025-10-04 10:05 | Outpatient (BNVA) | payer MEDICARE, SELFPAY | PROVIDERS: Visit Provider Nurse Practitioner Gerontology | DX: N28.1 Cyst of kidney, acquired (principal); N43.40 Spermatocele of epididymis, unspecified; K59.00 Constipation, unspecified; R35.1 Nocturia; R39.9 Unspecified symptoms and signs involving the genitourinary system | CPT/HCPCS: 99214; 51798 ==